=== PATIENT | male | born 1940 | race Caucasian/White ===

== ENCOUNTER 2024-11-23 14:20 | Inpatient (IN) | payer MEDICARE, OTHER, SELFPAY ==
[2024-11-22] VITALS (7 sets, daily range): BP systolic 108–162; BP diastolic 49–86; BMI 24.3
[2024-11-22 01:05] LABS: Hematocrit 41.4 % (39.0-52.0); Hemoglobin 13.8 g/dL (13.0-18.0); Mean Corp Hgb Conc. 33.3 g/dL (33.0-37.0); Mean Corpuscular Volume 84.7 fL (80.0-94.0); Nucleated Red Blood Cells % 0 % (-); Platelet Count 197 10^3/uL (130-400); Red Cell Dist. Width 14.2 % (11.5-14.5)
[2024-11-22 01:34] LABS: ALT (SGPT) 21 U/L (0-50); AST (SGOT) 27 U/L (17-59); Albumin 4.1 g/dl (3.5-5.0); Alkaline Phosphatase 74 U/L (38-126); Blood Urea Nitrogen 23 mg/dl (9-20); Calcium 9.5 mg/dl (8.4-10.2); Carbon Dioxide 23 mmol/L (22-30); Chloride 110 mmol/L (98-107); Glucose 123 mg/dl (70-99); Potassium 4.3 mmol/L (3.5-5.1); Sodium 140 mmol/L (135-145); Total Protein 6.6 g/dl (6.3-8.2); eGFR 53.84
[2024-11-22 01:45] LABS: Troponin I < 0.012 ng/ml
[2024-11-22] MEDS: DILAUDID 0.5 MG IV ×2 (04:19→07:13)
[2024-11-22] MEDS: ZOFRAN 4 MG IV (04:19)
[2024-11-22] MEDS: NSS 500 IV (04:20)
[2024-11-22 04:32] LABS: Lipase 52 U/L (23-300)
[2024-11-22] MEDS: PROTONIX IV 40 MG IV (07:13)
--- NOTE | 2024-11-22 07:14 | ED.GENMED ---
History of Present Illness
General
Chief Complaint: Abdominal Pain
Source: patient and spouse
Exam Limitations: none
Time Seen by Provider: 11/22/24 04:10
Nursing documentation reviewed up to this point in time: agreed with
History of Present Illness
History of Present Illness:
84-year-old male with history as noted presents to the ER with his for evaluation of abdominal pain. Patient reports onset of symptoms yesterday evening and they have been constant since that time. He reports an intense pain in the right
upper to mid abdomen. No clear triggering or relieving factor noted. He denies any associated nausea or vomiting. Denies any diarrhea or constipation. He has not noted any urinary symptoms. Denies any chest pain or shortness of breath. No
fever or chills. He has never had similar symptoms in the past. He denies any trauma or injury although his says he is quite active with yard work. His does note that he recently had a pinched nerve in his right leg but has otherwise
been in his normal state of health.
Past History
Past History
ED Past Medical History: Other
ED Past Surgical History: Other
Social History
Tobacco: Non-smoker
Personal:
Living: with family
Review of Systems
Review of Systems
All Other Systems: ROS reviewed and negative except as documented in HPI and ROS
Constitutional: Denies fever or chills
Respiratory: Denies trouble breathing
Cardiac: Denies chest pain
ABD/GI: Reports abdominal pain; Denies nausea, vomiting, diarrhea or constipated
: Denies dysuria, flank pain or bleeding
Musculoskeletal: Denies neck pain
Neurological: Denies headache
Phy Exam
Physical Exam
Physical Exam:
General: Awake, alert, appears uncomfortable
Head: Normocephalic, atraumatic
Eyes: Conjunctiva normal, sclera anicteric
Throat: Airway intact, handling secretions
Neck: Trachea midline, no JVD
Lungs: Clear to auscultation bilaterally, no wheezing, rales, rhonchi
Heart: Regular rate and rhythm, no murmurs, gallops, or rubs
Abd: Soft, non distended, tender to palpation right upper and mid abdomen
Back: No CVA tenderness
Neuro: No gross deficits
Skin: no rash in area of concern
Extremities: No edema in extremities, equal pulses in all extremities
Scores
Heart Failure Risk
Heart Failure Risk Score: Not Applicable
Heart Score for Chest Pain Patients
STEMI patient?: Not applicable
Withdrawal Assessment of Alcohol
Withdrawal Assessment Completed?: Not applicable
Course
Orders/Labs/Results
Orders:
Orders
11/22/24 00:37
ECG [Electrocardiogram (*1)] Urgent
Reason for Study: Chest Pain
EKG- Treatment ONCE
11/22/24 00:59
Complete Blood Count/With Diff Urgent
Comprehensive Metabolic Panel Urgent
Lipase Urgent
Comment: ADD ON
Troponin I Urgent
11/22/24 03:49
Add On- LAB Urgent
Tests Added?: lipase
11/22/24 04:16
CT Abd/pel Without Iv Or Oral Urgent
Comment:
Reason For Exam: right upper abd/flank pain
HYDROmorphone [Dilaudid] 0.5 mg IV NOW STA
Ondansetron Injectable [Zofran] 4 mg IV NOW STA
11/22/24 04:18
0.9% Sodium Chloride 500 ml [Nss] 500 ml IV BOLUS
11/22/24 06:35
Urinalysis Reflex To Culture Urgent
11/22/24 06:58
HYDROmorphone [Dilaudid] 0.5 mg IV NOW STA
11/22/24 07:02
Pantoprazole [Protonix IV] 40 mg IV NOW STA
Abnormal Lab Results
11/22/24
00:59
WBC 11.9 H 10^3/uL
(4.8-10.8)
Absolute Neuts (auto) 10.0 H 10^3/uL
(1.4-6.5)
Absolute Lymphs (auto) 1.0 L 10^3/uL
(1.2-3.4)
Absolute Monos (auto) 0.7 H 10^3/uL
(0.1-0.6)
Neutrophils % 84.0 H %
(42.2-75.2)
Lymphocytes % 8.6 L %
(20.5-51.1)
Chloride 110 H mmol/L
(98-107)
BUN 23 H mg/dl
(9-20)
Glucose 123 H mg/dl
(70-99)
11/22/24 00:59
11/22/24 00:59
Vital Signs
Initial and Last Documented VS:
Initial Vital Signs
Temp Pulse BP Pulse Ox
37.3 C 100 162/86 100
11/22/24 00:24 11/22/24 00:24 11/22/24 00:24 11/22/24 00:24
Last Documented Vital Signs
Temp Pulse Resp BP Pulse Ox
37.3 C 87 25 108/57 94
11/22/24 00:44 11/22/24 06:01 11/22/24 06:01 11/22/24 06:01 11/22/24 04:45
MDM/Problems Addressed
Differential Diagnosis Includes:
Colitis, appendicitis, nephrolithiasis, UTI/pyelonephritis, muscular strain
MDM/Problems Addressed:
84-year-old male presents for evaluation of right sided abdominal pain as described above. Vitals and exam as above. We sent labs including a CBC which showed a slight leukocytosis to 11.9. CMP shows stable creatinine of 1.3�patient is status
post left nephrectomy. He had a troponin sent in triage which was undetectable�denies chest pain at any point. His lipase is normal as are his LFTs. CT of the abdomen pelvis shows no acute pathology to account for his symptoms however he is
having continued significant pain and requiring multiple rounds of pain medication. Will plan to admit for continued symptom control and further evaluation of his symptoms, consideration of specialist consultation if symptoms persist.
Chronic conditions affecting care:
Left nephrectomy with chronic kidney disease
*Pulse Oximetry
SaO2: 94
Oxygen Mode of Delivery: Room air
Patient hypoxic: no (94%)
*EKG
Interpreted by ED Provider?: Yes
Heart Rate: 88
Rate: normal
Rhythm: sinus
[place]: normal axis
Interval: normal interval
QRS Pattern: normal QRS
Ischemia: no ischemia
*Critical Care Note
Total Time (30-74mins, 75-104mins- exclusive of procedures): Not Applicable
Data Reviewed
Source: patient, records and spouse
Patient Management
Discussion with other providers: Hospitalist (Discussed with hospitalist)
Escalation/DeEscalation of care consider admission/obs:
Admission indicated
ED Attending Note
-
Portions of this chart may have been created with voice recognition software.� Occasional wrong word or��sound alike� substitutions may have occurred due to the inherent limitations of voice recognition software.
Discharge Plan
Departure
Patient Disposition: Admit
Date of Disposition: 11/22/24
Time of Disposition: 07:02
Admit to doctor: Perez
Presentation/result/management discussed w/ accepting MD/DO: Hospitalist
Discharge Problem:
Abdominal pain
Referrals:
Quincy Wayne DO [Family Provider, Internal Medicine] - Call in 1-3 days for appt
Interventions
Interventions:
*Risk Screen - Suicide Last Done: 11/22/24 00:44
*Neglect/Abuse Screening Last Done: 11/22/24 00:44
*ED- Fall Risk Assessment Last Done: 11/22/24 00:44
UT-Uflbsp-Ktzkqekmil Assessment Last Done: 11/22/24 03:54
Discharge Date and Time
Print Language: MOLDOVAN
--- NOTE | 2024-11-22 09:03 | HPS.HSE ---
Family Physician
-
Family Physician: Quincy Wayne
Chief Complaint
-
Right flank pain
History of Present Illness
84-year-old male with a past medical history of left kidney cancer status post left nephrectomy and chronic back pain with radiculopathy presents with a 2-day history of right upper flank pain. Patient reports that there is dull pain constantly,
with sharpness that waxes and wanes. He denies nausea, vomiting. No constipation, no diarrhea. He has been taking Tylenol and Advil for his pain. His pain is unassociated with food. His reports that he has been working in his yard quite
often, using a weed My. He denies chest pain, denies shortness of breath. No fever, no dysuria, no black or bloody stools.
Medical History
Past Medical History
Past Medical History: Reports Other
Additional Past Medical History:
Kidney cancer status post left nephrectomy
Chronic back pain with radiculopathy
Past Surgical History: Reports Other
Additional Past Surgical History:
Left nephrectomy
Social History
Tobacco: Former Smoker
Alcohol: Occasional
Drug: None
Personal:
Living: With Family
Family History
Family History: Not pertinent
Allergies / Home Medications
Allergies reflects when Allergies were last updated in [facility].
Home Medications with original date entered in [facility]
Allergy/Medication List:
Allergies
Allergy/AdvReac Type Severity Reaction Status Date / Time
No Known Allergies Allergy Verified 11/22/24 00:44
Home Medications Table - record
�Medication �Instructions �Recorded �Confirmed
Unknown Bruise Cream 1 applic topical DAILYPRN PRN 11/22/24 11/22/24
apply to L arm bruise
Vitamin C 1 tab PO DAILY 11/22/24 11/22/24
acetaminophen 500 mg tablet 1,000 mg PO Q6HPRN PRN mild pain 11/22/24 11/22/24
(Tylenol Extra Strength)
ibuprofen 200 mg tablet (Advil) 400 mg PO TIDPRN PRN mild pain 11/22/24 11/22/24
Review of Systems
-
A 12 point ROS was completed and negative except as noted: Yes
Physical Exam
Vital Signs
Vital Signs
Temp Pulse Resp BP Pulse Ox
99.1 F 87 25 108/57 94
11/22/24 00:44 11/22/24 06:01 11/22/24 06:01 11/22/24 06:01 11/22/24 07:16
Physical Exam
General: No Apparent Distress
HEENT: NormoCephalic, Anicteric and Moist mucous membranes
Respiratory: Clear
Cardiac: S1/S2
GI: Soft, Non Tender, Non Distended and Normal Bowel Sounds
Musculoskeletal: No Clubbing, No Cyanosis, No Edema and Other (Right mid back and right upper flank are tender to palpation)
Neuro: Awake and Alert
Psych: Calm
Laboratory Results
-
11/22/24 00:59
11/22/24 00:59
Laboratory Results
Total Bilirubin 0.9 mg/dl (0.2-1.3) 11/22/24 00:59
AST 27 U/L (17-59) 11/22/24 00:59
ALT 21 U/L (0-50) 11/22/24 00:59
Alkaline Phosphatase 74 U/L (38-126) 11/22/24 00:59
Troponin I < 0.012 ng/ml 11/22/24 00:59
Lipase 52 U/L (23-300) 11/22/24 00:59
Impression/Plan
-
HPI: 84-year-old male with a past medical history of left kidney cancer status post left nephrectomy and chronic back pain with radiculopathy presents with a 2-day history of right upper flank pain. Patient reports that there is dull pain
constantly, with sharpness that waxes and wanes. He denies nausea, vomiting. No constipation, no diarrhea. He has been taking Tylenol and Advil for his pain. His pain is unassociated with food. His reports that he has been working in his
yard quite often, using a weed My. He denies chest pain, denies shortness of breath. No fever, no dysuria, no black or bloody stools.
#Right upper flank pain
#Right mid back pain
Suspect musculoskeletal strain with radiculopathy
Thoracic x-ray shows degenerative disc disease
CT abdomen and pelvis shows nonobstructing 3 mm stone in the inferior pole of the right kidney, bilateral hydroceles
Treat with lidocaine patches, Tylenol, flexeril, oxycodone
Consult PT
#Chronic back pain
Pain medications as above
#Cognitive impairment
reports that patient has been exhibiting cognitive impairment in the last 3-6 months
Check TSH with reflex T4, B12, consult OT for memory testing
#History of left kidney cancer status post left nephrectomy
Monitor kidney function
DVT prophylaxis�subcu Lovenox
Full code
Total time spent to see the patient on the floor, examine the patient, review data and lab results, discuss treatment plan with patient, nursing staff around 65 minutes.
[2024-11-22 09:28] LABS: Urine Character Clear (Clear)
[2024-11-22 09:38] LABS: Urine Squamous Cell 0-2 /LPF (Few); Urine White Cell 0-2 /HPF (0-5)
[2024-11-22] MEDS: TORADOL 15 MG IV (09:56)
[2024-11-22] MEDS: TYLENOL 1000 MG PO ×3 (09:57→21:49)
[2024-11-22] MEDS: NSS 1000 IV (09:58)
[2024-11-22] MEDS: FLEXERIL 5 MG PO ×3 (09:58→21:50)
[2024-11-22] MEDS: LIDOCAINE 4% PATCH 2 PATCH TOPICAL (10:07)
[2024-11-22] MEDS: LOVENOX 40 MG SC (17:12)
--- NOTE | 2024-11-22 18:00 | PTCARENOTE ---
Received patient from ED on stretcher. AAOx2 (place) [place] dto room and use of call paris. Communicated with Chapis who stated that patient has had cognitive decline over the past year, specifically with STM issues. Pt needed redirecting at
times after left for the evening. Steady gait. Checked frequently. Staff assisted in helping Pt call his . Call paris within reach.
[2024-11-22] MEDS: REMOVE LIDOCAINE PATCH 1 PATCH REMOVE (20:05)
[2024-11-22] MEDS: SENOKOT-S 2 TABLET PO (21:51)
[2024-11-22] MEDS: ROXICODONE 5 MG PO (23:24)
[2024-11-23 07:28] LABS: Hematocrit 42.3 % (39.0-52.0); Hemoglobin 13.9 g/dL (13.0-18.0); Mean Corp Hgb Conc. 32.9 g/dL (33.0-37.0); Mean Corpuscular Volume 86.2 fL (80.0-94.0); Platelet Count 232 10^3/uL (130-400); Red Cell Dist. Width 14.1 % (11.5-14.5)
[2024-11-23 07:52] LABS: Blood Urea Nitrogen 25 mg/dl (9-20); Calcium 8.9 mg/dl (8.4-10.2); Carbon Dioxide 26 mmol/L (22-30); Chloride 107 mmol/L (98-107); Estimated Creatinine Clearance 37 ml/min; Glucose 112 mg/dl (70-99); Magnesium 2.0 mg/dl (1.6-2.3); Potassium 4.6 mmol/L (3.5-5.1); Sodium 138 mmol/L (135-145); eGFR 49.25
[2024-11-23] MEDS: FLEXERIL 5 MG PO ×3 (07:55→22:37)
[2024-11-23] MEDS: LIDOCAINE 4% PATCH 2 PATCH TOPICAL (07:55)
[2024-11-23] MEDS: TYLENOL 1000 MG PO ×3 (07:56→22:37)
[2024-11-23 08:08] VITALS: BP 116/65
[2024-11-23 08:40] LABS: Vitamin B12 527 pg/ml (239-931)
[2024-11-23 10:31] VITALS: BP 127/66; PULSE 92; O2SAT 92
[2024-11-23 10:32] VITALS: BP 127/66; PULSE 93
--- NOTE | 2024-11-23 13:40 | CM ---
Addendum entered by Maranda Medrano 11/23/24 16:35:
options reviewed-prefer [facility] -notified [facility] liaison
Addendum entered by Maranda Medrano 11/23/24 16:15:
tt from [facility] - LOC change to inpatient
IMM explained & signed. In chart
Original Note:
Patient seen at bedside
OBS status - REED form explained to patient/ & placed in cart
Dx: R flank pain
PMH: left kidney cancer status post left nephrectomy and chronic back pain with radiculopathy
IA completed
CM consult completed Advanced Directives
Lives in a 2 story home with , 3 steps to enter, flight of stairs to bedroom/bathroom
Information given to patient - updated Chapis
PLOF: Independent, states no assistive device
DME: cane
Denies VN/Rehab
PT/OT to eval - Rec Home Health
will review options with
PCP: Quincy Wayne
Pharmacy: [address], [place]
PLAN: PT rec Home health, will review options with
--- NOTE | 2024-11-23 14:27 | W.PN.HOSP.TC ---
Today's Communication/Plan
-
See plan.
Patient's updated over the phone
Assessment / Plan
Assessment / Plan
Impression
HPI: 84-year-old male with a past medical history of left kidney cancer status post left nephrectomy and chronic back pain with radiculopathy presents with a 2-day history of right upper flank pain. Patient reports that there is dull pain
constantly, with sharpness that waxes and wanes. He denies nausea, vomiting. No constipation, no diarrhea. He has been taking Tylenol and Advil for his pain. His pain is unassociated with food. His reports that he has been working in his
yard quite often, using a weed My. He denies chest pain, denies shortness of breath. No fever, no dysuria, no black or bloody stools.
Right lower back/upper flank pain
Fever
Leukocytosis
Acute kidney injury
Conditions prior to admission
Solitary kidney, status post left nephrectomy.
Chronic back pain.
Dementia senile type
Plan
Poor historian, although with persistent right lower back/upper flank pain reproducible on exam.
Noted febrile within 24 hours postadmission with now rising white count.
Urinalysis negative on admission.
Imaging with 3 mm nonobstructive right-sided kidney stone.
Imaging also suggestive of a right small pleural effusion with adjacent consolidation, reasonable concern for right basilar pneumonia.
Chest x-ray 2 views
Blood cultures
Repeat UA and cultures
Empiric antibiotics/ceftriaxone
Acute kidney injury
Solitary kidney.
Avoid nephrotoxins.
IV fluids
Monitor creatinine.
Bladder scan for retention
Chronic back pain.
Continue symptomatic control including Tylenol, Flexeril, oxycodone for severe pain. Avoid NSAIDs with SHALA
Cognitive impairment
Suspect dementia senile type
TSH, B12 is in normal limits.
Monitor closely for delirium in the settings of acute illness and fever
Anticipated Discharge: > 48 hours
Subjective/Interval History
-
Date of Service: November 23, 2024
Objective Data
-
Labs:
Laboratory Results
11/23/24
06:56
WBC 14.9 H
Hgb 13.9
Hct 42.3
Plt Count 232
Sodium 138
Potassium 4.6
Chloride 107
Carbon Dioxide 26
BUN 25 H
Creatinine 1.4 H
Glucose 112 H
Calcium 8.9
Vital Signs:
Vital Signs
Temp Pulse Resp BP Pulse Ox
100.9 F H 87 16 116/65 92
11/23/24 08:08 11/23/24 08:08 11/23/24 08:08 11/23/24 08:08 11/23/24 08:08
I&O
11/22/24 11/23/24 11/24/24
06:59 06:59 06:59
Intake Total 100 / 100
Balance 100 / 100
Physical Exam
-
General: Well Developed and No Apparent Distress
HEENT: Normocephalic, Atraumatic and Moist Mucous Membranes
Respiratory: Clear to Auscultation
Cardiac: Regular Rhythm and S1/S2; Negative Murmur, Rub or Gallop
GI: Soft, Nontender, Nondistended and Normal Bowel Sounds; Negative Organomegaly
Rectal: Deferred by Provider
Musculoskeletal: No Clubbing, No Cyanosis and No Edema
Skin: Negative Rash
Neuro: Nonfocal/Grossly Intact
[2024-11-23] MEDS: NSS 1000 IV (15:00)
[2024-11-23] MEDS: STERILE WATER FOR INJECTION 10 ML IV (15:56)
[2024-11-23] MEDS: ROCEPHIN 1000 MG IV (15:56)
[2024-11-23 16:26] LABS: Urine Character Clear (Clear)
[2024-11-23 16:28] VITALS: BP 136/64
[2024-11-23 16:31] LABS: Urine Squamous Cell 0-2 /LPF (Few)
[2024-11-23] MEDS: LOVENOX 40 MG SC (18:12)
[2024-11-23] MEDS: REMOVE LIDOCAINE PATCH 2 PATCH REMOVE (20:01)
[2024-11-23] MEDS: SENOKOT-S 2 TABLET PO (22:38)
[2024-11-23 23:10] VITALS: BP 130/61
[2024-11-24] MEDS: ROXICODONE 10 MG PO (00:03)
--- NOTE | 2024-11-24 05:11 | PTCARENOTE ---
Patient now unable to be redirected, continuing to stand up and walk out of bed. Bed alarm ringing, roommate expressing frustration. YUDY Young notified. Patient sat at nurses station in recliner, no order for osito-chair necessary, YUDY Gipson
Hannah notified, order cancelled. Patient remaining at nurses station. Will continue to monitor.
[2024-11-24] MEDS: NSS 1000 IV ×2 (05:41→17:40)
[2024-11-24 06:50] LABS: Hematocrit 39.1 % (39.0-52.0); Hemoglobin 12.8 g/dL (13.0-18.0); Mean Corp Hgb Conc. 32.7 g/dL (33.0-37.0); Mean Corpuscular Volume 85.6 fL (80.0-94.0); Nucleated Red Blood Cells % 0 % (-); Platelet Count 203 10^3/uL (130-400); Red Cell Dist. Width 14.1 % (11.5-14.5)
[2024-11-24 07:05] VITALS: BP 143/72
[2024-11-24 07:17] LABS: Blood Urea Nitrogen 22 mg/dl (9-20); Calcium 8.5 mg/dl (8.4-10.2); Carbon Dioxide 23 mmol/L (22-30); Chloride 106 mmol/L (98-107); Estimated Creatinine Clearance 37 ml/min; Glucose 97 mg/dl (70-99); Potassium 4.5 mmol/L (3.5-5.1); Sodium 137 mmol/L (135-145); eGFR 49.25
[2024-11-24] MEDS: LIDOCAINE 4% PATCH 2 PATCH TOPICAL (08:39)
[2024-11-24] MEDS: FLEXERIL 5 MG PO ×3 (08:40→21:29)
[2024-11-24] MEDS: TYLENOL 1000 MG PO ×3 (08:40→21:26)
--- NOTE | 2024-11-24 11:01 | VNURNOTE ---
Home Health Liaison spoke w/patient's spouse Chapis to discuss [facility] nurse/therapy, visits, schedule and homebound status. She is agreeable and understands that visits at home will be 2-3 x per week to assess and teach medical management. Spouse
aware that [facility] will contact them for start of care in 1-2 days after discharge from .
[facility] referral accepted in [facility].
--- NOTE | 2024-11-24 12:16 | W.PN.HOSP.TC ---
Today's Communication/Plan
-
Speech and swallow evaluation
Right chest ultrasound to assess pleural effusion
Continue antibiotics ceftriaxone with addition of doxycycline
IV fluids
Monitor oral intake
Bladder scan for retention
Follow creatinine
Assessment / Plan
Assessment / Plan
Impression
HPI: 84-year-old male with a past medical history of left kidney cancer status post left nephrectomy and chronic back pain with radiculopathy presents with a 2-day history of right upper flank pain. Patient reports that there is dull pain
constantly, with sharpness that waxes and wanes. He denies nausea, vomiting. No constipation, no diarrhea. He has been taking Tylenol and Advil for his pain. His pain is unassociated with food. His reports that he has been working in his
yard quite often, using a weed My. He denies chest pain, denies shortness of breath. No fever, no dysuria, no black or bloody stools.
Right lower back/upper flank pain
Pneumonia, right lower lobe infiltrate with possible parapneumonic pleural effusion
Acute kidney injury
Conditions prior to admission
Solitary kidney, status post left nephrectomy.
Chronic back pain.
Dementia senile type
Plan
Pneumonia, right lower lobe infiltrate suspect community-acquired, although reasonable risk for aspiration given age and cognitive impairment
Noted febrile within 24 hours postadmission with now rising white count.
Urinalysis negative on admission.
Imaging with 3 mm nonobstructive right-sided kidney stone.
Imaging also suggestive of a right small pleural effusion with adjacent consolidation, reasonable concern for right basilar pneumonia.
Chest x-ray 2 views with right lower lobe consolidation and effusion
Blood cultures pending
Repeat urine cultures pending
Initiated antibiotics ceftriaxone 11/23 with addition of doxycycline 11/24
Right chest ultrasound to assess pleural effusion
Follow WBC
Speech and swallowing
Acute kidney injury
Solitary kidney.
Avoid nephrotoxins.
IV fluids
Creatinine plateaued at 1.4
Bladder scan for retention
Chronic back pain.
Continue symptomatic control including Tylenol, Flexeril, oxycodone for severe pain. Avoid NSAIDs with SHALA
Cognitive impairment
Suspect dementia senile type
TSH, B12 is in normal limits.
Monitor closely for delirium in the settings of acute illness and fever
Anticipated Discharge: > 48 hours
Subjective/Interval History
-
Date of Service: November 24, 2024
Objective Data
-
Labs:
Laboratory Results
11/24/24
06:34
WBC 13.6 H
Hgb 12.8 L
Hct 39.1
Plt Count 203
Sodium 137
Potassium 4.5
Chloride 106
Carbon Dioxide 23
BUN 22 H
Creatinine 1.4 H
Glucose 97
Calcium 8.5
Vital Signs:
Vital Signs
Temp Pulse Resp BP Pulse Ox
99.8 F 95 16 143/72 93
11/24/24 07:05 11/24/24 07:05 11/24/24 07:05 11/24/24 07:05 11/24/24 07:05
I&O
11/23/24 11/24/24 11/25/24
06:59 06:59 06:59
Intake Total 100 / 100 1560 / 1560
Output Total 300 / 300
Balance 100 / 100 1260 / 1260
Physical Exam
-
General: Well Developed and No Apparent Distress
HEENT: Normocephalic, Atraumatic and Moist Mucous Membranes
Respiratory: Clear to Auscultation
Cardiac: Regular Rhythm and S1/S2; Negative Murmur, Rub or Gallop
GI: Soft, Nontender, Nondistended and Normal Bowel Sounds; Negative Organomegaly
Rectal: Deferred by Provider
Musculoskeletal: No Clubbing, No Cyanosis and No Edema
Skin: Negative Rash
Neuro: Awake, Alert, Oriented and Nonfocal/Grossly Intact
[2024-11-24 15:32] VITALS: BP 148/64
[2024-11-24] MEDS: STERILE WATER FOR INJECTION 10 ML IV (15:48)
[2024-11-24] MEDS: ROCEPHIN 1000 MG IV (15:48)
[2024-11-24] MEDS: LOVENOX 40 MG SC (17:39)
--- NOTE | 2024-11-24 20:30 | PTCARENOTE ---
Patient continually setting off bed alarm r/t trying to get OOB. Patient stood with this RN's assistance and he is profoundly weak and unable to stand for more then a few seconds, unable to walk. Patient brought out to nurses station in recliner
chair, did not want to be at station and kept trying to get out chair. Patient brought back to room, spoke with which calmed him down for a short period but then patient became agitated and did not want to stay in bed. Nursing supervisor bit and shank department made
aware. 1:1 initiated, PCT at bedside. Will continue to monitor.
[2024-11-24] MEDS: VIBRAMYCIN 100 MG PO (21:26)
[2024-11-24] MEDS: SENOKOT-S 2 TABLET PO (21:26)
[2024-11-24] MEDS: REMOVE LIDOCAINE PATCH 1 PATCH REMOVE (21:27)
[2024-11-24 23:25] VITALS: BP 146/75
[2024-11-25 05:43] LABS: Hematocrit 39.0 % (39.0-52.0); Hemoglobin 12.8 g/dL (13.0-18.0); Mean Corp Hgb Conc. 32.8 g/dL (33.0-37.0); Mean Corpuscular Volume 83.3 fL (80.0-94.0); Nucleated Red Blood Cells % 0 % (-); Platelet Count 239 10^3/uL (130-400); Red Cell Dist. Width 13.9 % (11.5-14.5)
[2024-11-25 07:07] LABS: Blood Urea Nitrogen 23 mg/dl (9-20); Calcium 8.8 mg/dl (8.4-10.2); Carbon Dioxide 26 mmol/L (22-30); Chloride 107 mmol/L (98-107); Estimated Creatinine Clearance 40 ml/min; Glucose 90 mg/dl (70-99); Potassium 4.0 mmol/L (3.5-5.1); Sodium 138 mmol/L (135-145); eGFR 53.84
[2024-11-25 07:27] VITALS: BP 166/79
[2024-11-25] MEDS: FLEXERIL 5 MG PO ×3 (08:36→21:28)
[2024-11-25] MEDS: VIBRAMYCIN 100 MG PO ×2 (08:39→21:28)
[2024-11-25] MEDS: TYLENOL 1000 MG PO ×3 (08:40→21:30)
[2024-11-25] MEDS: LIDOCAINE 4% PATCH 2 PATCH TOPICAL (08:49)
[2024-11-25] MEDS: SEROQUEL 25 MG PO ×2 (12:55→21:30)
--- NOTE | 2024-11-25 14:41 | W.PN.HOSP.TC ---
Today's Communication/Plan
-
Interventional radiology to evaluate right pleural effusion with consideration of thoracentesis
IV antibiotics
Follow WBC
Gentle hydration
Start Seroquel for delirium
Assessment / Plan
Assessment / Plan
Impression
HPI: 84-year-old male with a past medical history of left kidney cancer status post left nephrectomy and chronic back pain with radiculopathy presents with a 2-day history of right upper flank pain. Patient reports that there is dull pain
constantly, with sharpness that waxes and wanes. He denies nausea, vomiting. No constipation, no diarrhea. He has been taking Tylenol and Advil for his pain. His pain is unassociated with food. His reports that he has been working in his
yard quite often, using a weed My. He denies chest pain, denies shortness of breath. No fever, no dysuria, no black or bloody stools.
Right lower back/upper flank pain
Pneumonia, right lower lobe infiltrate with possible parapneumonic pleural effusion
Acute kidney injury
TME, hyperactive daily
Conditions prior to admission
Solitary kidney, status post left nephrectomy.
Chronic back pain.
Dementia senile type
Plan
Pneumonia, right lower lobe infiltrate suspect community-acquired, although reasonable risk for aspiration given age and cognitive impairment
Noted febrile within 24 hours postadmission with now rising white count.
Urinalysis negative on admission.
Imaging with 3 mm nonobstructive right-sided kidney stone.
Imaging also suggestive of a right small pleural effusion with adjacent consolidation, reasonable concern for right basilar pneumonia.
Chest x-ray 2 views with right lower lobe consolidation and effusion
Blood cultures negative to date
Repeat urine cultures negative
Initiated antibiotics ceftriaxone 11/23 with addition of doxycycline 11/24
Chest ultrasound with possibly small, although loculated pleural effusion
WBC lingering at 13.9
Will ask interventional radiology to evaluate and consider right thoracentesis
Acute kidney injury
Solitary kidney.
Avoid nephrotoxins.
IV fluids
Creatinine improving at 1.3
Bladder scan for retention
Chronic back pain.
Continue symptomatic control including Tylenol, Flexeril, oxycodone for severe pain. Avoid NSAIDs with SHALA
Hyperactive delirium
Underlying cognitive impairment
Suspect dementia senile type
TSH, B12 is in normal limits.
Protective intervention
Start Seroquel 25 mg first dose given on 11/25 with 25 mg at bedtime. Monitor for oversedation.
Anticipated Discharge: > 48 hours
Subjective/Interval History
-
Date of Service: November 25, 2024
Objective Data
-
Labs:
Laboratory Results
11/25/24
05:28
WBC 13.9 H
Hgb 12.8 L
Hct 39.0
Plt Count 239
Sodium 138
Potassium 4.0
Chloride 107
Carbon Dioxide 26
BUN 23 H
Creatinine 1.3
Glucose 90
Calcium 8.8
Vital Signs:
Vital Signs
Temp Pulse Resp BP Pulse Ox
98.4 F 96 17 166/79 94
11/25/24 07:27 11/25/24 07:27 11/25/24 07:27 11/25/24 07:27 11/25/24 07:27
I&O
11/24/24 11/25/24 11/26/24
06:59 06:59 06:59
Intake Total 1560 / 1560 50 / 50
Output Total 300 / 300 375 / 375
Balance 1260 / 1260 -325 / -325
Physical Exam
-
General: Well Developed and No Apparent Distress
HEENT: Normocephalic, Atraumatic and Moist Mucous Membranes
Respiratory: Clear to Auscultation
Cardiac: Regular Rhythm and S1/S2; Negative Murmur, Rub or Gallop
GI: Soft, Nontender, Nondistended and Normal Bowel Sounds; Negative Organomegaly
Rectal: Deferred by Provider
Musculoskeletal: No Clubbing, No Cyanosis and No Edema
Skin: Negative Rash
Neuro: Awake, Alert, Oriented and Nonfocal/Grossly Intact
[2024-11-25 15:18] VITALS: BP 147/71
[2024-11-25] MEDS: ROCEPHIN 1000 MG IV (15:42)
[2024-11-25] MEDS: NSS 1000 IV (15:43)
[2024-11-25] MEDS: HALDOL 1 MG IV (16:08)
[2024-11-25] MEDS: STERILE WATER FOR INJECTION 10 ML IV (16:16)
--- NOTE | 2024-11-25 16:26 | PTCARENOTE ---
Patient hallucinations and agitation increasing MD made aware. Order received for 1mg IV Haldol. Medication administered via left distal forearm.
--- NOTE | 2024-11-25 16:39 | CM ---
Addendum entered by Maru Pinedo 11/26/24 17:01:
Therapy notes reviewed. Pt is Max A for toileting, max assist with RW, transfers with mod assist of 2. Watch for SNF needs;.
Original Note:
CM following for discharge planning. Pt will return home with [facility] when medically cleared.
[2024-11-25] MEDS: LOVENOX 40 MG SC (17:46)
[2024-11-25] MEDS: SENOKOT-S 2 TABLET PO (21:30)
[2024-11-25] MEDS: REMOVE LIDOCAINE PATCH 1 PATCH REMOVE (21:30)
[2024-11-25 23:40] VITALS: BP 168/85
[2024-11-26 06:00] VITALS: BMI 24.6
[2024-11-26 07:28] LABS: Hematocrit 36.8 % (39.0-52.0); Hemoglobin 12.3 g/dL (13.0-18.0); Mean Corp Hgb Conc. 33.4 g/dL (33.0-37.0); Mean Corpuscular Volume 83.6 fL (80.0-94.0); Nucleated Red Blood Cells % 0 % (-); Platelet Count 254 10^3/uL (130-400); Red Cell Dist. Width 13.9 % (11.5-14.5)
[2024-11-26 07:33] LABS: Blood Urea Nitrogen 24 mg/dl (9-20); Calcium 8.7 mg/dl (8.4-10.2); Carbon Dioxide 23 mmol/L (22-30); Chloride 110 mmol/L (98-107); Estimated Creatinine Clearance 40 ml/min; Glucose 98 mg/dl (70-99); Potassium 4.5 mmol/L (3.5-5.1); Sodium 141 mmol/L (135-145); eGFR 53.84
[2024-11-26 07:55] VITALS: BP 183/84
[2024-11-26] MEDS: FLEXERIL 5 MG PO ×2 (08:16→15:37)
[2024-11-26] MEDS: VIBRAMYCIN 100 MG PO ×2 (08:16→22:09)
[2024-11-26] MEDS: TYLENOL 1000 MG PO ×3 (08:16→22:11)
[2024-11-26] MEDS: LIDOCAINE 4% PATCH 2 PATCH TOPICAL (08:17)
[2024-11-26] MEDS: NSS 1000 IV (08:29)
--- NOTE | 2024-11-26 10:59 | W.PN.HOSP.TC ---
Today's Communication/Plan
-
Thoracentesis in the next 24 hours
Monitor mentation
Monitor blood pressure
Continue with antibiotic
Trend WBC
Wean off restraints and one-to-one as tolerated possible
Assessment / Plan
Assessment / Plan
Impression
HPI: 84-year-old male with a past medical history of left kidney cancer status post left nephrectomy and chronic back pain with radiculopathy presents with a 2-day history of right upper flank pain. Patient reports that there is dull pain
constantly, with sharpness that waxes and wanes. He denies nausea, vomiting. No constipation, no diarrhea. He has been taking Tylenol and Advil for his pain. His pain is unassociated with food. His reports that he has been working in his
yard quite often, using a weed My. He denies chest pain, denies shortness of breath. No fever, no dysuria, no black or bloody stools.
Right lower back/upper flank pain
Pneumonia, right lower lobe infiltrate with possible parapneumonic pleural effusion
Acute kidney injury
TME, hyperactive daily
Labile hypertension
Conditions prior to admission
Solitary kidney, status post left nephrectomy.
Chronic back pain.
Dementia senile type
Plan
Pneumonia, right lower lobe infiltrate suspect community-acquired, although reasonable risk for aspiration given age and cognitive impairment
Noted febrile within 24 hours postadmission with now rising white count.
Urinalysis negative on admission.
Imaging with 3 mm nonobstructive right-sided kidney stone.
Imaging also suggestive of a right small pleural effusion with adjacent consolidation, reasonable concern for right basilar pneumonia.
Chest x-ray 2 views with right lower lobe consolidation and effusion
Blood cultures negative to date
Repeat urine cultures negative
Initiated antibiotics ceftriaxone 11/23 with addition of doxycycline 11/24
Chest ultrasound with possibly small, although loculated pleural effusion
WBC mild improvement. Not tachypneic. On room air comfortable.
Will ask interventional radiology to evaluate and consider right thoracentesis once patient more awake.
Acute kidney injury
Solitary kidney.
Avoid nephrotoxins.
IV fluids
Creatinine improving at 1.3
Bladder scan for retention
Chronic back pain.
Continue symptomatic control including Tylenol, Flexeril, oxycodone for severe pain. Avoid NSAIDs with SHALA
Hyperactive delirium
Underlying cognitive impairment
Suspect dementia senile type
TSH, B12 is in normal limits.
Protective intervention
Start Seroquel 25 mg first dose given on 11/25 with 25 mg at bedtime. Monitor for oversedation.
Mentation seems to be improving
Labile hypertension
Monitor blood pressure closely. If persistently elevated will need to be started on medication.
DVT prophylaxis with Lovenox
Full code
Anticipated Discharge: > 48 hours
Subjective/Interval History
-
Date of Service: November 26, 2024
Patient resting in bed comfortably
Calm this morning
Off restraints
On room air. Not tachypneic. One-to-one at bedside noted
Objective Data
-
Labs:
Laboratory Results
11/26/24
06:26
WBC 13.0 H
Hgb 12.3 L
Hct 36.8 L
Plt Count 254
Sodium 141
Potassium 4.5
Chloride 110 H
Carbon Dioxide 23
BUN 24 H
Creatinine 1.3
Glucose 98
Calcium 8.7
Vital Signs:
Vital Signs
Temp Pulse Resp BP Pulse Ox
99.9 F 89 18 183/84 96
11/26/24 07:55 11/26/24 07:55 11/26/24 07:55 11/26/24 07:55 11/26/24 07:55
I&O
11/25/24 11/26/24 11/27/24
06:59 06:59 06:59
Intake Total 50 / 50 90 / 90
Output Total 375 / 375 625 / 625
Balance -325 / -325 -535 / -535
Physical Exam
-
General: Well Developed and No Apparent Distress
HEENT: Normocephalic, Atraumatic and Moist Mucous Membranes
Respiratory: Clear to Auscultation (Anterior) and Non Labored Respirations; Negative Accessory Resp Muscle Use
Cardiac: Regular Rhythm and S1/S2; Negative Murmur, Rub or Gallop
GI: Soft, Nontender, Nondistended and Normal Bowel Sounds; Negative Organomegaly
Rectal: Deferred by Provider
Musculoskeletal: No Clubbing, No Cyanosis and No Edema
Skin: Negative Rash
Neuro: Nonfocal/Grossly Intact
Psych: Calm
Data Reviewed
-
Total Time Spent with Patient (in minutes): 55
[2024-11-26 14:59] VITALS: BP 145/75
[2024-11-26] MEDS: ROCEPHIN 1000 MG IV (15:38)
[2024-11-26] MEDS: STERILE WATER FOR INJECTION 10 ML IV (15:39)
--- NOTE | 2024-11-26 15:47 | PTOTSP ---
Dysphagia Evaluation
Patient presents with signs concerning for at least mild dysphagia suspected to be exacerbated by AMS with baseline cognitive impairment. Signs concerning for possible aspiration noted with solids. CXR 11/23/2024 with right sided pneumonia.
Recommend:
1. IDDSI Level 6 Soft/Bite Sized, Thin Liquids
2. Medications as best tolerated
3. Supervision with all PO/meds, assist as needed
4. Strategies: upright to 90 degrees, SMALL SINGLE SIPS/BITES, slow rate
5. Consider instrumental swallowing assessment if s/s of aspiration persist despite strategies above
[2024-11-26] MEDS: LOVENOX 40 MG SC (17:16)
[2024-11-26] MEDS: SENOKOT-S 2 TABLET PO (22:11)
[2024-11-26] MEDS: SEROQUEL 25 MG PO (22:11)
[2024-11-26] MEDS: REMOVE LIDOCAINE PATCH 1 PATCH REMOVE (22:34)
[2024-11-26 23:32] VITALS: BP 139/78
[2024-11-27] MEDS: NSS 1000 IV (00:46)
[2024-11-27] MEDS: FLEXERIL PO (00:49)
[2024-11-27] MEDS: ROXICODONE 5 MG PO (03:28)
[2024-11-27 07:48] VITALS: BP 129/80
[2024-11-27 07:50] VITALS: BP 129/80; BP_SYST 93
--- NOTE | 2024-11-27 08:25 | PTOTSP ---
Speech Language Pathology
VIDEOFLUOROSCOPIC SWALLOWING EXAMINATION (VSE) completed. Pt with mild pharyngeal dysphagia. Pharyngeal residue noted with supraglottic penetration with consecutive straw sips of thin liquids only. No aspiration.
Recommend:
(1) IDDSI Level 6 solids (soft/bite-sized) and thin liquids
(2) Aspiration precautions: sit upright, slow rate, partial supervision, occasional cough/reswallow (please remind pt)
(3) Meds as tolerated
(4) VESSEL MANAGER to continue to follow
[2024-11-27] MEDS: LIDOCAINE 4% PATCH 2 PATCH TOPICAL (08:52)
[2024-11-27] MEDS: FLEXERIL 5 MG PO ×3 (08:53→21:04)
[2024-11-27] MEDS: TYLENOL 1000 MG PO ×3 (08:53→21:04)
[2024-11-27] MEDS: VIBRAMYCIN 100 MG PO ×2 (08:53→21:09)
[2024-11-27 09:51] LABS: Hematocrit 37.2 % (39.0-52.0); Hemoglobin 12.4 g/dL (13.0-18.0); Mean Corp Hgb Conc. 33.3 g/dL (33.0-37.0); Mean Corpuscular Volume 83.2 fL (80.0-94.0); Nucleated Red Blood Cells % 0 % (-); Platelet Count 280 10^3/uL (130-400); Red Cell Dist. Width 14.0 % (11.5-14.5)
[2024-11-27 10:32] LABS: ALT (SGPT) 40 U/L (0-50); AST (SGOT) 32 U/L (17-59); Albumin 3.0 g/dl (3.5-5.0); Alkaline Phosphatase 207 U/L (38-126); Blood Urea Nitrogen 22 mg/dl (9-20); Calcium 8.4 mg/dl (8.4-10.2); Carbon Dioxide 23 mmol/L (22-30); Chloride 107 mmol/L (98-107); Estimated Creatinine Clearance 44 ml/min; Glucose 140 mg/dl (70-99); Potassium 4.0 mmol/L (3.5-5.1); Sodium 136 mmol/L (135-145); Total Protein 5.3 g/dl (6.3-8.2); eGFR 59.26
--- NOTE | 2024-11-27 10:52 | W.PN.HOSP.TC ---
Addendum entered and electronically signed by Jg Cloud MD 11/27/24 16:05:
Updated spouse over the phone in details. Spouse is interesting in patient going to rehab for short period of time.
Addendum entered and electronically signed by Jg Cloud MD 11/27/24 13:09:
Elevated creatinine
Original Note:
Today's Communication/Plan
-
Monitor p.o. intake
DC IV fluids and observe
Observe off restraints and one-to-one
Continue antibiotics
Assessment / Plan
Assessment / Plan
Impression
HPI: 84-year-old male with a past medical history of left kidney cancer status post left nephrectomy and chronic back pain with radiculopathy presents with a 2-day history of right upper flank pain. Patient reports that there is dull pain
constantly, with sharpness that waxes and wanes. He denies nausea, vomiting. No constipation, no diarrhea. He has been taking Tylenol and Advil for his pain. His pain is unassociated with food. His reports that he has been working in his
yard quite often, using a weed My. He denies chest pain, denies shortness of breath. No fever, no dysuria, no black or bloody stools.
Right lower back/upper flank pain
Pneumonia, right lower lobe infiltrate with possible parapneumonic pleural effusion
Acute kidney injury
TME, hyperactive daily
Labile hypertension
Mild dysphagia
Conditions prior to admission
Solitary kidney, status post left nephrectomy.
Chronic back pain.
Dementia senile type
Plan
Pneumonia, right lower lobe infiltrate suspect community-acquired, although reasonable risk for aspiration given age and cognitive impairment
Noted febrile within 24 hours postadmission with now rising white count.
Urinalysis negative on admission.
Imaging with 3 mm nonobstructive right-sided kidney stone.
Imaging also suggestive of a right small pleural effusion with adjacent consolidation, reasonable concern for right basilar pneumonia.
Chest x-ray 2 views with right lower lobe consolidation and effusion
Blood cultures negative to date
Repeat urine cultures negative
Initiated antibiotics ceftriaxone 11/23 with addition of doxycycline 11/24
Chest ultrasound with possibly small, although loculated pleural effusion
WBC mild improvement. Not tachypneic. On room air comfortable.
Not much fluid for thoracentesis.
Acute kidney injury
Solitary kidney.
Avoid nephrotoxins.
Creatinine improving at 1.2
Observe off IV fluids.
Bladder scan for retention
Chronic back pain.
Continue symptomatic control including Tylenol, Flexeril, oxycodone for severe pain. Avoid NSAIDs with SHALA
Hyperactive delirium
Underlying cognitive impairment
Suspect dementia senile type
TSH, B12 is in normal limits.
Protective intervention
Start Seroquel 25 mg first dose given on 11/25 with 25 mg at bedtime. Monitor for oversedation.
Mentation seems to be improving. Off restraints. Off one-to-one.
Labile hypertension
Monitor blood pressure closely. If persistently elevated will need to be started on medication.
Blood pressure AM 129/80
Mild dysphagia
Status post video swallow evaluation
Per speech continue with IDDS6 with mildly thick liquids
DVT prophylaxis with Lovenox
Full code
PT/OT-SNF.
Anticipated Discharge: 24 - 48 hours
Subjective/Interval History
-
Date of Service: November 27, 2024
Patient more awake and alert
Not agitated
Did not sleep much overnight
Off restraints
Objective Data
-
Labs:
Laboratory Results
11/27/24
09:36
WBC 13.0 H
Hgb 12.4 L
Hct 37.2 L
Plt Count 280
Sodium 136
Potassium 4.0
Chloride 107
Carbon Dioxide 23
BUN 22 H
Creatinine 1.2
Glucose 140 H
Calcium 8.4
Total Bilirubin 1.0
AST 32
ALT 40
Alkaline Phosphatase 207 H
Vital Signs:
Vital Signs
Temp Pulse Resp BP Pulse Ox
99.4 F 93 16 129/80 93
11/27/24 07:50 11/27/24 07:50 11/27/24 07:50 11/27/24 07:50 11/27/24 07:50
I&O
11/26/24 11/27/24 11/28/24
06:59 06:59 06:59
Intake Total 90 / 90 360 / 360
Output Total 625 / 625 775 / 775
Balance -535 / -535 -415 / -415
Physical Exam
-
General: Well Developed and No Apparent Distress
HEENT: Normocephalic, Atraumatic and Moist Mucous Membranes
Respiratory: Clear to Auscultation (Anterior) and Non Labored Respirations; Negative Accessory Resp Muscle Use
Cardiac: Regular Rhythm and S1/S2; Negative Murmur, Rub or Gallop
GI: Soft, Nontender, Nondistended and Normal Bowel Sounds; Negative Organomegaly
Rectal: Deferred by Provider
Musculoskeletal: No Clubbing, No Cyanosis and No Edema
Skin: Negative Rash
Neuro: Awake
Psych: Calm
--- NOTE | 2024-11-27 11:20 | PN.CDI ---
CDI
- -
CDI:
Physician Documentation Request
Admit Date: 11/23/24 14:20
Dear Doctor Ai,
Progress notes include a diagnosis if SHALA.
Creatinine results:
Laboratory Tests
11/22/24 11/23/24 11/24/24
00:59 06:56 06:34
Creatinine 1.3 1.4 H 1.4 H
11/25/24 11/26/24 11/27/24
05:28 06:26 09:36
Creatinine 1.3 1.3 1.2
Criteria for SHALA*
1 Increase in serum creatinine by > or = to 0.3 mg/dL (> or = to 26.5 micromol/L) within 48 hours, OR
2 Increase in serum creatinine to > or = to 1.5 times baseline, which is known or presumed to have occurred within 7 days, OR
3 Urine volume < 0.5 nL/kg/hour for six hours
Based on the above information and the recognized standard for SHALA could you please verify this diagnoses is still accurate and reflective of the patient�s condition to ensure quality of the medical record.
Please clarify in the Progress Notes:
�SHALA is/was present and is a clinical diagnosis based on (please include this additional support in the medical record)
�After study SHALA has been ruled out
�Other
Use of terms such as suspected, likely, concern for, or probable (associated with a specific diagnosis that is being evaluated, monitored, or treated as if it exists) are acceptable and can be coded in the inpatient setting, when documented at the
time of discharge.
Thank you,
Naye Pfeiffer RN, BSN
CDI Specialist
tiger text
Please use your independent medical judgment in providing your response.
[2024-11-27 15:42] VITALS: BP 129/80
[2024-11-27] MEDS: ROCEPHIN 1000 MG IV (16:14)
[2024-11-27] MEDS: STERILE WATER FOR INJECTION 10 ML IV (16:14)
[2024-11-27] MEDS: LOVENOX 40 MG SC (17:07)
--- NOTE | 2024-11-27 18:26 | FALL ---
pt bed bed/chair alarm going off. RN Tess Brady entered room and found back laying on ground, on his back (feet towards the center of the bed and head of pt towards the doorframe/wall), head off the ground, naked, L bedside rail down, food tray in
front on the patient (between pt and door way). x2 assist to stand pt and place pt back in bed. pt confused at baseline, unable to answer questions regarding how he fell, why he fell, or if he hit his head. pt found with 2 bleeding skin tears. one
skin tear on L medial elbow and the other on the proximal gluteal cleft. both cleansed with saline and silicone boarder foams placed. Dr. vera notified via tt, head CT and L elbow XR ordered.
when this nurse left pt after administering Lovenox shot pt was seated up right in bed, side rails up, x2 visitors at the bedside, call paris on food tray, bed and chair alarm plugged in.
[2024-11-27] MEDS: HALDOL 1 MG IV (20:29)
--- NOTE | 2024-11-27 20:51 | PTCARENOTE ---
Pt continually getting OOB and trying to walk in room, unsteady on feet, nearly falling. 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 Agitation further increasing with redirection, beginning to
curse, threaten and swing at staff. TT to UNIX MANAGER, received order for b/l soft wrist restraints and IV haldol x 1. Restraints applied and haldol administered. Will check EKG in AM.
[2024-11-27] MEDS: SEROQUEL 25 MG PO (21:05)
[2024-11-27] MEDS: SENOKOT-S 2 TABLET PO (21:05)
[2024-11-27] MEDS: REMOVE LIDOCAINE PATCH 2 PATCH REMOVE (21:05)
[2024-11-27 23:00] VITALS: BP 172/77
[2024-11-28 06:43] LABS: Hematocrit 37.1 % (39.0-52.0); Hemoglobin 12.3 g/dL (13.0-18.0); Mean Corp Hgb Conc. 33.2 g/dL (33.0-37.0); Mean Corpuscular Volume 83.2 fL (80.0-94.0); Nucleated Red Blood Cells % 0 % (-); Platelet Count 322 10^3/uL (130-400); Red Cell Dist. Width 13.4 % (11.5-14.5)
--- NOTE | 2024-11-28 06:45 | PTCARENOTE ---
Pt awake most of the night, fighting the restraints and fidgeting with blankets, throwing legs over side of bed. Eventually did calm down, at present pt is calm and cooperative. Restraints removed and pt planning breakfast.
[2024-11-28 07:03] LABS: ALT (SGPT) 39 U/L (0-50); AST (SGOT) 30 U/L (17-59); Albumin 3.0 g/dl (3.5-5.0); Alkaline Phosphatase 248 U/L (38-126); Blood Urea Nitrogen 21 mg/dl (9-20); Calcium 8.6 mg/dl (8.4-10.2); Carbon Dioxide 22 mmol/L (22-30); Chloride 106 mmol/L (98-107); Estimated Creatinine Clearance 44 ml/min; Glucose 94 mg/dl (70-99); Potassium 3.8 mmol/L (3.5-5.1); Sodium 139 mmol/L (135-145); Total Protein 5.3 g/dl (6.3-8.2); eGFR 59.26
[2024-11-28 07:31] VITALS: BP 148/71
--- NOTE | 2024-11-28 08:12 | W.PN.HOSP.TC ---
Addendum entered and electronically signed by Mikala Jain MD 11/28/24 15:43:
Addendum
I reviewed chart and met with in the room.
Possible medication induced encephalopathy/toxic encephalopathy. Stop Flexeril. Avoid narcotic. Continue with Tylenol only
Repeat chest x-ray in the a.m. as reporting more coughing?. Sputum culture possible. Sent for Legionella & strep cryptococcal test. Sputum culture.
I also update the daughter.
End
Original Note:
Today's Communication/Plan
-
Low dose Risperdal
try to take off restraints so we can ambulate/ do PT and send to SNF
Assessment / Plan
Assessment / Plan
PE:
General: chronically ill looking, No Apparent Distress
HEENT: Normocephalic, Atraumatic and Moist Mucous Membranes
Respiratory: Clear
Cardiac: S1 S2
GI: Soft, Nontender, Nondistended and Normal Bowel Sounds;
Rectal: Deferred by Provider
Musculoskeletal: No Clubbing, No Cyanosis and No Edema
Skin: Negative Rash
Neuro: Awake, disoriented X3
Psych: on restraints
Impression
HPI: 84-year-old male with a past medical history of left kidney cancer status post left nephrectomy and chronic back pain with radiculopathy presents with a 2-day history of right upper flank pain. Patient reports that there is dull pain
constantly, with sharpness that waxes and wanes. He denies nausea, vomiting. No constipation, no diarrhea. He has been taking Tylenol and Advil for his pain. His pain is unassociated with food. His reports that he has been working in his
yard quite often, using a weed My. He denies chest pain, denies shortness of breath. No fever, no dysuria, no black or bloody stools.
Right lower back/upper flank pain
Pneumonia, right lower lobe infiltrate with possible parapneumonic pleural effusion
Acute kidney injury
TME, hyperactive daily
Labile hypertension
Mild dysphagia
Conditions prior to admission
Solitary kidney, status post left nephrectomy.
Chronic back pain.
Dementia senile type
Plan
Pneumonia, right lower lobe infiltrate suspect community-acquired, although reasonable risk for aspiration given age and cognitive impairment
Noted febrile within 24 hours postadmission with now rising white count.
Urinalysis negative on admission.
Imaging with 3 mm nonobstructive right-sided kidney stone.
Imaging also suggestive of a right small pleural effusion with adjacent consolidation, reasonable concern for right basilar pneumonia.
Chest x-ray 2 views with right lower lobe consolidation and effusion
Blood cultures negative to date
Repeat urine cultures negative
Initiated antibiotics ceftriaxone 11/23 with addition of doxycycline 11/24
Chest ultrasound with possibly small, although loculated pleural effusion
WBC mild improvement. Not tachypneic. On room air comfortable.
Not much fluid for thoracentesis.
Acute kidney injury
Solitary kidney.
Avoid nephrotoxins.
Creatinine improving at 1.2
Observe off IV fluids.
Bladder scan for retention
Chronic back pain.
Continue symptomatic control including Tylenol, Flexeril, oxycodone for severe pain. Avoid NSAIDs with SHALA
Hyperactive delirium
Underlying cognitive impairment
Suspect dementia senile type
TSH, B12 is in normal limits.
Protective intervention
Stop Seroquel , try low dose Risperdal. Monitor for oversedation.
On restraints. Off one-to-one.
Labile hypertension
Monitor blood pressure closely. If persistently elevated will need to be started on medication.
No headache
Mild dysphagia
Status post video swallow evaluation
Per speech continue with IDDS6 with mildly thick liquids
DVT prophylaxis with Lovenox
Full code
PT/OT-SNF.
Total time spent to see the patient, examine the patient, review data and lab result, discuss treatment plan with patient, nursing staff around 55 minutes
Anticipated Discharge: > 48 hours
Subjective/Interval History
-
Date of Service: November 28, 2024
Confused , on restraints
Objective Data
-
Labs:
Laboratory Results
11/28/24
06:14
WBC 14.4 H
Hgb 12.3 L
Hct 37.1 L
Plt Count 322
Sodium 139
Potassium 3.8
Chloride 106
Carbon Dioxide 22
BUN 21 H
Creatinine 1.2
Glucose 94
Calcium 8.6
Total Bilirubin 1.1
AST 30
ALT 39
Alkaline Phosphatase 248 H
Vital Signs:
Vital Signs
Temp Pulse Resp BP Pulse Ox
99 F 93 16 148/71 93
11/28/24 07:31 11/28/24 07:31 11/28/24 07:31 11/28/24 07:31 11/28/24 07:31
I&O
11/27/24 11/28/24 11/29/24
06:59 06:59 06:59
Intake Total 360 / 360 960 / 960
Output Total 775 / 775 200 / 200
Balance -415 / -415 760 / 760
[2024-11-28] MEDS: LIDOCAINE 4% PATCH 2 PATCH TOPICAL (10:41)
[2024-11-28] MEDS: VIBRAMYCIN 100 MG PO ×2 (10:41→21:12)
[2024-11-28] MEDS: TYLENOL 1000 MG PO ×3 (10:41→21:12)
[2024-11-28] MEDS: RISPERDAL 0.25 MG PO (10:41)
[2024-11-28] MEDS: FLEXERIL 5 MG PO (10:44)
[2024-11-28 14:37] VITALS: BMI 24.6
[2024-11-28 15:21] VITALS: BP 124/58
[2024-11-28] MEDS: STERILE WATER FOR INJECTION 10 ML IV (15:44)
[2024-11-28] MEDS: ROCEPHIN 1000 MG IV (15:44)
[2024-11-28] MEDS: LOVENOX 40 MG SC (17:44)
[2024-11-28] MEDS: REMOVE LIDOCAINE PATCH 2 PATCH REMOVE (21:11)
[2024-11-28] MEDS: SENOKOT-S 2 TABLET PO (21:12)
[2024-11-28 23:10] VITALS: BP 140/71
[2024-11-29 04:43] LABS: Hematocrit 35.4 % (39.0-52.0); Hemoglobin 11.9 g/dL (13.0-18.0); Mean Corp Hgb Conc. 33.6 g/dL (33.0-37.0); Mean Corpuscular Volume 83.3 fL (80.0-94.0); Platelet Count 346 10^3/uL (130-400); Red Cell Dist. Width 13.7 % (11.5-14.5)
[2024-11-29 05:07] LABS: Blood Urea Nitrogen 22 mg/dl (9-20); Calcium 8.9 mg/dl (8.4-10.2); Carbon Dioxide 26 mmol/L (22-30); Chloride 108 mmol/L (98-107); Estimated Creatinine Clearance 44 ml/min; Glucose 104 mg/dl (70-99); Potassium 4.2 mmol/L (3.5-5.1); Sodium 139 mmol/L (135-145); eGFR 59.26
[2024-11-29 07:23] VITALS: BP 120/76
[2024-11-29] MEDS: VIBRAMYCIN 100 MG PO (07:37)
[2024-11-29] MEDS: TYLENOL 1000 MG PO ×2 (07:37→15:59)
[2024-11-29] MEDS: LIDOCAINE 4% PATCH 2 PATCH TOPICAL (07:38)
[2024-11-29] MEDS: RISPERDAL 0.25 MG PO (07:38)
[2024-11-29] MEDS: TESSALON PERLES 100 MG PO ×2 (07:38→21:32)
--- NOTE | 2024-11-29 08:26 | W.PN.HOSP.TC ---
Today's Communication/Plan
-
Send urine for testing of Legionella and strep Ag
Sputum culture
Avoid restraints if possible
Chest x ray
Assessment / Plan
Assessment / Plan
PE:
General: chronically ill looking, No Apparent Distress
HEENT: Normocephalic, Atraumatic and Moist Mucous Membranes
Respiratory: Clear, no wheezes
Cardiac: S1 S2
GI: Soft, Nontender, Nondistended and Normal Bowel Sounds;
Rectal: Deferred by Provider
Musculoskeletal: No Clubbing, No Cyanosis and No Edema
Skin: Negative Rash
Neuro: Awake, disoriented X3
Psych: on restraints
# Acute delirium
Likely TME
mentation seems to improve after stopping around the clock Flexeril & avoiding Oxycodone. Treating right lower lobe pneumonia
Only to give Tylenol for back pain if recurs but so far, he is not complaining of it.
Used low-dose Risperdal which seemed to help, we will change it to as needed only. Avoid benzodiazepine or restraints.
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
Or could be related to pleuritic pain, hard to tell at this point but good thing the pain has dissipated.
# Pneumonia, right lower lobe infiltrate suspect community-acquired, although reasonable risk for aspiration given age
Noted febrile within 24 hours postadmission with now rising white count.
Urinalysis negative on admission.
Imaging with 3 mm nonobstructive right-sided kidney stone.
Imaging also suggestive of a right small pleural effusion with adjacent consolidation, reasonable concern for right basilar pneumonia.
Chest x-ray 2 views with right lower lobe consolidation and effusion
Blood cultures negative to date
Repeat urine cultures negative
Initiated antibiotics ceftriaxone 11/23 with addition of doxycycline 11/24
Chest ultrasound with possibly small, although loculated pleural effusion. Not much fluid for thoracentesis.
WBC mild improvement. Not tachypneic. On room air comfortable.
repeat chest x ray 11/29, add PRN Robitussin, ordered Legionella and streptococcal antigen. Sputum culture
Acute kidney injury
Solitary kidney.
Avoid nephrotoxins.
Creatinine improving at 1.2
Observe off IV fluids.
Bladder scan for retention
Mild dysphagia
Status post video swallow evaluation
Per speech continue with IDDS6 with mildly thick liquids
# Mild cognitive impairment. denied dementia, reported living independently but sometimes forgetful
DVT prophylaxis with Lovenox
Conditions prior to admission
Solitary kidney, status post left nephrectomy.
Chronic back pain.
PT/OT-SNF.
Total time spent to see the patient, examine the patient, review data and lab result, discuss treatment plan with patient, nursing staff around 55 minutes
Anticipated Discharge: > 48 hours
Subjective/Interval History
-
Date of Service: November 29, 2024
No chest pain
No sob
No fevers
Objective Data
-
Labs:
Laboratory Results
11/29/24
04:24
WBC 15.1 H
Hgb 11.9 L
Hct 35.4 L
Plt Count 346
Sodium 139
Potassium 4.2
Chloride 108 H
Carbon Dioxide 26
BUN 22 H
Creatinine 1.2
Glucose 104 H
Calcium 8.9
Vital Signs:
Vital Signs
Temp Pulse Resp BP Pulse Ox
98.4 F 93 16 120/76 93
11/29/24 07:23 11/29/24 07:23 11/29/24 07:23 11/29/24 07:23 11/29/24 07:23
I&O
11/28/24 11/29/24 11/30/24
06:59 06:59 06:59
Intake Total 960 / 960 240 / 240
Output Total 200 / 200 200 / 200
Balance 760 / 760 40 / 40
[2024-11-29 14:56] VITALS: BP 154/74
[2024-11-29] MEDS: ROCEPHIN 1000 MG IV (15:59)
[2024-11-29] MEDS: STERILE WATER FOR INJECTION 10 ML IV (15:59)
[2024-11-29] MEDS: LOVENOX 40 MG SC (17:50)
[2024-11-29] MEDS: REMOVE LIDOCAINE PATCH 2 PATCH REMOVE (21:32)
[2024-11-29] MEDS: VIBRAMYCIN PO ×2 (21:32→21:41)
[2024-11-29] MEDS: TYLENOL PO ×2 (21:33→21:41)
[2024-11-29 23:00] VITALS: BP 153/71
[2024-11-30 06:07] LABS: Hematocrit 35.9 % (39.0-52.0); Hemoglobin 11.6 g/dL (13.0-18.0); Mean Corp Hgb Conc. 32.3 g/dL (33.0-37.0); Mean Corpuscular Volume 85.1 fL (80.0-94.0); Platelet Count 403 10^3/uL (130-400); Red Cell Dist. Width 13.7 % (11.5-14.5)
[2024-11-30 06:33] LABS: ALT (SGPT) 40 U/L (0-50); AST (SGOT) 30 U/L (17-59); Albumin 2.9 g/dl (3.5-5.0); Alkaline Phosphatase 268 U/L (38-126); Blood Urea Nitrogen 24 mg/dl (9-20); Calcium 8.6 mg/dl (8.4-10.2); Carbon Dioxide 24 mmol/L (22-30); Chloride 108 mmol/L (98-107); Estimated Creatinine Clearance 44 ml/min; Glucose 103 mg/dl (70-99); Potassium 4.4 mmol/L (3.5-5.1); Sodium 140 mmol/L (135-145); Total Protein 5.3 g/dl (6.3-8.2); eGFR 59.26
[2024-11-30 07:35] VITALS: BP 122/68
[2024-11-30] MEDS: TYLENOL 1000 MG PO ×3 (08:24→22:50)
[2024-11-30] MEDS: VIBRAMYCIN 100 MG PO ×2 (08:24→20:25)
[2024-11-30] MEDS: LIDOCAINE 4% PATCH 2 PATCH TOPICAL (08:24)
[2024-11-30] MEDS: TESSALON PERLES 100 MG PO ×2 (08:24→20:25)
--- NOTE | 2024-11-30 14:47 | W.PN.HOSP.TC ---
Today's Communication/Plan
-
Continue antibiotics
Follow WBC
Pulmonology evaluation
Consider to repeat right chest ultrasound with attempt of thoracentesis
Assessment / Plan
Assessment / Plan
HPI: 84-year-old male with a past medical history of left kidney cancer status post left nephrectomy and chronic back pain with radiculopathy presents with a 2-day history of right upper flank pain. Patient reports that there is dull pain
constantly, with sharpness that waxes and wanes. He denies nausea, vomiting. No constipation, no diarrhea. He has been taking Tylenol and Advil for his pain. His pain is unassociated with food. His reports that he has been working in his
yard quite often, using a weed My. He denies chest pain, denies shortness of breath. No fever, no dysuria, no black or bloody stools.
Right lower back/upper flank pain
Pneumonia, right lower lobe infiltrate with possible parapneumonic pleural effusion
Acute kidney injury
TME, hyperactive daily
Labile hypertension
Mild dysphagia
Conditions prior to admission
Solitary kidney, status post left nephrectomy.
Chronic back pain.
Dementia senile type
Plan
Pneumonia, right lower lobe infiltrate suspect community-acquired, although reasonable risk for aspiration given age and cognitive impairment
Noted febrile within 24 hours postadmission with now rising white count.
Urinalysis negative on admission.
Imaging with 3 mm nonobstructive right-sided kidney stone.
Imaging also suggestive of a right small pleural effusion with adjacent consolidation, reasonable concern for right basilar pneumonia.
Chest x-ray 2 views with right lower lobe consolidation and effusion
Blood cultures negative to date
Repeat urine cultures negative
Initiated antibiotics ceftriaxone 11/23 with addition of doxycycline 11/24
Chest ultrasound with possibly small, although loculated pleural effusion
Loculated pleural effusion not amenable to thoracentesis on 11/26.
WBC remains elevated while on antibiotics but
Follow-up CT scan on 11/30 with right lower lobe process and loculated pleural effusion.
Consult pulmonology
Consider to repeat attempt of thoracentesis
Continue antibiotics and follow WBC
Acute kidney injury
Solitary kidney.
Avoid nephrotoxins.
Creatinine improving at 1.2
Observe off IV fluids.
Bladder scan for retention
Chronic back pain.
Continue symptomatic control including Tylenol, Flexeril, oxycodone for severe pain. Avoid NSAIDs with SHALA
Hyperactive delirium
Underlying cognitive impairment
Suspect dementia senile type
TSH, B12 is in normal limits.
Status post Seroquel
Status post Risperdal changed to as needed
Mental status improved
Has been off restraints
Labile hypertension
Monitor blood pressure closely. If persistently elevated will need to be started on medication.
Blood pressure AM 129/80
Mild dysphagia
Status post video swallow evaluation
Per speech continue with IDDS6 with mildly thick liquids
DVT prophylaxis with Lovenox
Full code
PT/OT-SNF.
Anticipated Discharge: 24 - 48 hours
Subjective/Interval History
-
Date of Service: November 30, 2024
Objective Data
-
Labs:
Laboratory Results
11/30/24
05:38
WBC 16.0 H
Hgb 11.6 L
Hct 35.9 L
Plt Count 403 H
Sodium 140
Potassium 4.4
Chloride 108 H
Carbon Dioxide 24
BUN 24 H
Creatinine 1.2
Glucose 103 H
Calcium 8.6
Total Bilirubin 0.9
AST 30
ALT 40
Alkaline Phosphatase 268 H
Vital Signs:
Vital Signs
Temp Pulse Resp BP Pulse Ox
97.5 F 88 14 122/68 96
11/30/24 07:35 11/30/24 07:35 11/30/24 07:35 11/30/24 07:35 11/30/24 07:45
I&O
11/29/24 11/30/24 12/01/24
06:59 06:59 06:59
Intake Total 720 / 720
Output Total 200 / 200
Balance 520 / 520
Physical Exam
-
General: Well Developed and No Apparent Distress
HEENT: Normocephalic, Atraumatic and Moist Mucous Membranes
Respiratory: Clear to Auscultation (Anterior) and Non Labored Respirations; Negative Accessory Resp Muscle Use
Cardiac: Regular Rhythm and S1/S2; Negative Murmur, Rub or Gallop
GI: Soft, Nontender, Nondistended and Normal Bowel Sounds; Negative Organomegaly
Rectal: Deferred by Provider
Musculoskeletal: No Clubbing, No Cyanosis and No Edema
Skin: Negative Rash
Neuro: Awake
Psych: Calm
[2024-11-30 15:17] VITALS: BP 153/86
--- NOTE | 2024-11-30 15:27 | CON.PUL ---
Consultation
Consultation Request
Date/Time Consultation Requested: 11/30/24
Date/Time Consultation Performed: 11/30/24
Performing Provider: Marilyn
Reason for Consultation: Pleural effusion
Medical History
-
History of Present Illness:
Patient is an 84-year-old male with history of kidney cancer status post left nephrectomy, radiculopathy/chronic back pain, presenting to ER 11/23/24 with right upper flank pain, admitted for possible infection. Chest x-ray demonstrating right
sided infiltrate, suspicious for pneumonia. UA was negative on admission. On repeat chest x-rays, right sided pleural effusion had progressed into loculated appearance. Evaluated for thoracentesis on 11/27 but could not be amenable for sampling
due to a small fluid size. Underwent CT showing moderate size loculated pleural effusion, enlarging.
He provides no additional History/ROS due to dementia.
Past Medical History
Past Medical History: Other (see list below)
Social History
Tobacco: Former Smoker (Quit in his 40s)
Alcohol: None
Drug: None
Family History
Family History: Reviewed & Not Pertinent
Allergies / Home Medications
Allergies
Allergy/AdvReac Type Severity Reaction Status Date / Time
No Known Allergies Allergy Verified 11/22/24 00:44
Home Medications
�Medication �Instructions �Recorded �Confirmed �Last Taken �Type
Unknown Bruise Cream 1 applic topical DAILYPRN PRN 11/22/24 11/22/24 3 Days Ago History
apply to L arm bruise ~11/19/24
Vitamin C 1 tab PO DAILY 11/22/24 11/22/24 Unknown History
acetaminophen 500 mg tablet 1,000 mg PO Q6HPRN PRN mild pain 11/22/24 11/22/24 1 Day Ago History
(Tylenol Extra Strength) ~11/21/24
ibuprofen 200 mg tablet (Advil) 400 mg PO TIDPRN PRN mild pain 11/22/24 11/22/24 Unknown History
Review of Systems
-
History Source: Patient
All other systems: Negative unless noted
Vitals / Labs / Diagnostic Testing
Vital Signs
Temp Pulse Resp BP Pulse Ox
98.2 F 90 20 153/86 94
11/30/24 15:17 11/30/24 15:17 11/30/24 15:17 11/30/24 15:17 11/30/24 15:17
Lab Data
11/30/24 05:38
11/30/24 05:38
Microbiology
11/29/24 14:05 Urine Legionella Urinary Antigen - Final
Negative for Legionella pneumophila Serogroup 1 antigen.
A negative result does not rule out the possiblity of
Legionella infection due to other serogroups or species of
Legionella. Clinical correlation is recommended.
11/29/24 14:05 Urine Streptococcus pneumoniae Antigen (M - Final
Negative for Streptococcus pneumoniae antigen.
A negative result does not exclude infection with
Streptococcus pneumoniae. Clinical correlation is
recommended.
11/23/24 15:15 Blood/Venous Blood Culture - Final
No Growth - Final Report
11/23/24 14:38 Blood/Venous Blood Culture - Final
No Growth - Final Report
Diagnostic Testing:
Physical Exam
-
HEENT: Normocephalic, Anicteric and Moist Mucous Membranes
Cardiovascular: S1/S2 and Regular Rhythm
Respiratory: Clear and Non-Labored Respirations
GI: Soft, Non Distended and Non Tender
Neurology: Awake, Alert, No Motor Deficits and Other (confused)
Skin: Warm and Dry
General: Comfortable and Other (NAD)
Assessment
-
Patient is an 84-year-old male with history of kidney cancer status post left nephrectomy, radiculopathy/chronic back pain, presenting to ER 11/23/24 with right upper flank pain, admitted for possible infection. Chest x-ray demonstrating right
sided infiltrate, suspicious for pneumonia. UA was negative on admission. On repeat chest x-rays, right sided pleural effusion had progressed into loculated appearance. Evaluated for thoracentesis on 11/27 but could not be amenable for sampling
due to a small fluid size. Underwent CT showing moderate size loculated pleural effusion, enlarging. He provides no additional History/ROS due to dementia. We are consulted for eval 11/30/24.
Pneumonia, right lower lobe
Pleural effusion, likely parapneumonic
Right upper flank pain
Fever/leukocytosis
Acute kidney injury
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
Chronic back pain with radiculopathy
Dementia
Plan
No oxygen was needed on admission, currently saturating >90% on RA
Prior history of lung disease is not noted but he was a former smoker about 40 years ago
Suspect patient has pna, possible due to aspiration given his dementia
CXR/CT obtained indicating enlarged loculated effusion, evaluated by IR on 11/27 but insufficient fluid at that time
Other imaging reviewed-- will repeat US to eval for tap
Need diagnostic tap studies to determine cause
ProBNP not obtained on admission, no history of cardiac disease
Prior ECHO results are reviewed indicating normal function in 2011
New baseline testing may be beneficial
Smoking history noted--former smoker, quit >40 years ago
No prior PFT for review
Speech therapy evaluation may be beneficial to r/o aspiration
RUE Cellulitis noted, on IV abx
SHALA noted, peak 1.4--trended down
Follow daily weights/daily BMPs
We will follow
Diagnostic Data
Chest X-Ray:
CT Scan: CHEST 11/30/24- Moderate loculated slightly high attenuation right pleural effusion with extension of small to moderate volume fluid into the right minor fissure and accompanying right lower lobe consolidation extending to the right hilum,
overall markedly limited without intravenous contrast. Malignancy in the right lower lobe cannot be excluded. Tiny left pleural effusion with accompanying left lower lobe opacification most likely representing subsegmental atelectasis. Predominantly
fluid density in the subcarinal mediastinum, indeterminate. Coronary artery calcifications.
US 11/27/24- Trace right pleural effusion. Amount of fluid present not sufficient for safe thoracentesis.
Echo: Stress 2011- Echocardiographic images are good. Baseline EF is 55% without regional wall motion abnormalities. With exercise, there is augmentation of all regional wall motion the EF of 70%. This a normal echocardiographic response to
exercise.
PFT's:
Reports and relevant images were personally reviewed.
Total time spent on this consultation __75__ minutes which includes review of history, physical exam, medications, laboratory data, personal review of imaging, extensive review of outpatient records, discussion with care team and respiratory therapy.
[2024-11-30 15:47] VITALS: BP 139/77; PULSE 89; O2SAT 92
[2024-11-30 15:48] VITALS: BP 139/77; PULSE 89; O2SAT 92
[2024-11-30] MEDS: STERILE WATER FOR INJECTION 10 ML IV (16:25)
[2024-11-30] MEDS: ROCEPHIN 1000 MG IV (16:25)
[2024-11-30] MEDS: LOVENOX 40 MG SC (17:05)
[2024-11-30] MEDS: REMOVE LIDOCAINE PATCH 2 PATCH REMOVE (20:26)
[2024-11-30 23:20] VITALS: BP 121/59
[2024-12-01] MEDS: RISPERDAL 0.25 MG PO ×2 (00:45→20:01)
[2024-12-01 06:09] LABS: Hematocrit 34.0 % (39.0-52.0); Hemoglobin 11.0 g/dL (13.0-18.0); Mean Corp Hgb Conc. 32.4 g/dL (33.0-37.0); Mean Corpuscular Volume 84.6 fL (80.0-94.0); Nucleated Red Blood Cells % 0 % (-); Platelet Count 412 10^3/uL (130-400); Red Cell Dist. Width 13.7 % (11.5-14.5)
[2024-12-01 06:34] LABS: Blood Urea Nitrogen 26 mg/dl (9-20); Calcium 8.2 mg/dl (8.4-10.2); Carbon Dioxide 28 mmol/L (22-30); Chloride 107 mmol/L (98-107); Estimated Creatinine Clearance 48 ml/min; Glucose 122 mg/dl (70-99); Potassium 4.3 mmol/L (3.5-5.1); Sodium 138 mmol/L (135-145); eGFR > 60.00
[2024-12-01 07:05] VITALS: BP 141/67
[2024-12-01 07:40] VITALS: BP 141/65
[2024-12-01] MEDS: VIBRAMYCIN 100 MG PO ×2 (08:19→20:01)
[2024-12-01] MEDS: TYLENOL 1000 MG PO ×3 (08:19→21:17)
[2024-12-01] MEDS: LIDOCAINE 4% PATCH 2 PATCH TOPICAL (08:19)
[2024-12-01] MEDS: TESSALON PERLES 100 MG PO ×2 (08:19→20:01)
--- NOTE | 2024-12-01 09:31 | W.PN.PUL3 ---
Today's Communication / Plan
-
IR consult for tap and/or R chest tube drainage
IV abx are on board, await labs from pleural studies
Baseline cardiac testing if indicated
Assessment
-
Patient is an 84-year-old male with history of kidney cancer status post left nephrectomy, radiculopathy/chronic back pain, presenting to ER 11/23/24 with right upper flank pain, admitted for possible infection. Chest x-ray demonstrating right
sided infiltrate, suspicious for pneumonia. UA was negative on admission. On repeat chest x-rays, right sided pleural effusion had progressed into loculated appearance. Evaluated for thoracentesis on 11/27 but could not be amenable for sampling
due to a small fluid size. Underwent CT showing moderate size loculated pleural effusion, enlarging. He provides no additional History/ROS due to dementia. We are consulted for eval 11/30/24.
Pneumonia, right lower lobe
Pleural effusion, likely parapneumonic
Right upper flank pain
Fever/leukocytosis
Acute kidney injury
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
Chronic back pain with radiculopathy
Dementia
Plan
No oxygen was needed on admission, currently saturating >90% on RA
Prior history of lung disease is not noted but he was a former smoker about 40 years ago
Suspect patient has pna, possible due to aspiration given his dementia
CXR/CT obtained indicating enlarged loculated effusion, evaluated by IR on 11/27 but insufficient fluid at that time
Other imaging reviewed-- will repeat US to eval for tap -- IR consult placed for possible chest tube drainage
Need diagnostic tap studies to determine cause--labs sent
ProBNP not obtained on admission, no history of cardiac disease
Prior ECHO results are reviewed indicating normal function in 2011
New baseline testing may be beneficial
Smoking history noted--former smoker, quit >40 years ago
No prior PFT for review
Speech therapy evaluation may be beneficial to r/o aspiration
RUE Cellulitis noted, on IV abx
SHALA noted, peak 1.4--trended down
Follow daily weights/daily BMPs
We will follow
Diagnostic Data
Chest X-Ray:
CT Scan: CHEST 11/30/24- Moderate loculated slightly high attenuation right pleural effusion with extension of small to moderate volume fluid into the right minor fissure and accompanying right lower lobe consolidation extending to the right hilum,
overall markedly limited without intravenous contrast. Malignancy in the right lower lobe cannot be excluded. Tiny left pleural effusion with accompanying left lower lobe opacification most likely representing subsegmental atelectasis. Predominantly
fluid density in the subcarinal mediastinum, indeterminate. Coronary artery calcifications.
US 11/27/24- Trace right pleural effusion. Amount of fluid present not sufficient for safe thoracentesis.
Echo: Stress 2011- Echocardiographic images are good. Baseline EF is 55% without regional wall motion abnormalities. With exercise, there is augmentation of all regional wall motion the EF of 70%. This a normal echocardiographic response to
exercise.
PFT's:
Reports and relevant images were personally reviewed.
Total time spent on this consultation __50__ minutes which includes review of history, physical exam, medications, laboratory data, personal review of imaging, extensive review of outpatient records, discussion with care team and respiratory therapy.
Subjective Data
-
Date of Service:
Date of Service: December 01, 2024
Chief Complaint: Pulmonary Follow Up
Subjective:
No new complaints, confused at baseline
Stable on RA, mild cough observed
Objective Data
Data Reviewed
Vital Signs / I&O / Oxygen:
Vital Signs
Temp Pulse Resp BP Pulse Ox
98.1 F 87 24 141/65 97
12/01/24 07:40 12/01/24 07:40 12/01/24 07:40 12/01/24 07:40 12/01/24 07:40
Intake and Output
11/30/24 12/01/24 12/02/24
06:59 06:59 06:59
Intake Total 720 / 720 210 / 210
Output Total 200 / 200
Balance 520 / 520 210 / 210
SaO2 97
Physical Exam
General: Comfortable and Other (NAD)
HEENT: Normocephalic, Anicteric and Moist Mucous Membranes
Cardiovascular: S1-S2 and Regular Rhythm
Respiratory: Crackles (mild R) and Non-Labored Respirations
GI: Soft, Non Distended and Non Tender
Neurology: Awake, Alert, No Motor Deficits and Other (confused)
Skin: Warm, Dry and Good Color
Labs/Micro/Reports
Lab Data
12/01/24 05:37
12/01/24 05:37
Microbiology
11/29/24 14:05 Urine Legionella Urinary Antigen - Final
Negative for Legionella pneumophila Serogroup 1 antigen.
A negative result does not rule out the possiblity of
Legionella infection due to other serogroups or species of
Legionella. Clinical correlation is recommended.
11/29/24 14:05 Urine Streptococcus pneumoniae Antigen (M - Final
Negative for Streptococcus pneumoniae antigen.
A negative result does not exclude infection with
Streptococcus pneumoniae. Clinical correlation is
recommended.
11/23/24 15:15 Blood/Venous Blood Culture - Final
No Growth - Final Report
11/23/24 14:38 Blood/Venous Blood Culture - Final
No Growth - Final Report
--- NOTE | 2024-12-01 09:52 | CM ---
PT indicated SNF and OT indicated Out pt PT.
Pt off restraints .
LM with [facility] [phone] and dgt Gela [phone] LM no call back yet.
PLAN Review PT with family for dc plan.
--- NOTE | 2024-12-01 14:14 | W.PN.HOSP.TC ---
Today's Communication/Plan
-
Diagnostic/therapeutic thoracentesis with possible chest tube placement
Continue antibiotics
Follow WBC
Pulmonary input appreciated
Assessment / Plan
Assessment / Plan
HPI: 84-year-old male with a past medical history of left kidney cancer status post left nephrectomy and chronic back pain with radiculopathy presents with a 2-day history of right upper flank pain. Patient reports that there is dull pain
constantly, with sharpness that waxes and wanes. He denies nausea, vomiting. No constipation, no diarrhea. He has been taking Tylenol and Advil for his pain. His pain is unassociated with food. His reports that he has been working in his
yard quite often, using a weed My. He denies chest pain, denies shortness of breath. No fever, no dysuria, no black or bloody stools.
Right lower back/upper flank pain
Pneumonia, right lower lobe infiltrate with possible parapneumonic pleural effusion
Acute kidney injury
TME, hyperactive daily
Labile hypertension
Mild dysphagia
Conditions prior to admission
Solitary kidney, status post left nephrectomy.
Chronic back pain.
Dementia senile type
Plan
Pneumonia, right lower lobe infiltrate suspect community-acquired, although reasonable risk for aspiration given age and cognitive impairment
Noted febrile within 24 hours postadmission with now rising white count.
Urinalysis negative on admission.
Imaging with 3 mm nonobstructive right-sided kidney stone.
Imaging also suggestive of a right small pleural effusion with adjacent consolidation, reasonable concern for right basilar pneumonia.
Chest x-ray 2 views with right lower lobe consolidation and effusion
Blood cultures negative to date
Repeat urine cultures negative
Initiated antibiotics ceftriaxone 11/23 with addition of doxycycline 11/24
Chest ultrasound with possibly small, although loculated pleural effusion
Loculated pleural effusion not amenable to thoracentesis on 11/26.
WBC remains elevated while on antibiotics
Follow-up CT scan on 11/30 with right lower lobe process and loculated pleural effusion.
Repeat ultrasound on 12/01 with worsening right pleural effusion possible loculation
Interventional radiology already consulted for diagnostic/therapeutic thoracentesis possibly chest tube placement tentatively on 12/02
Acute kidney injury
Solitary kidney.
Avoid nephrotoxins.
Creatinine improving at 1.2
Observe off IV fluids.
Bladder scan for retention
Chronic back pain.
Continue symptomatic control including Tylenol, Flexeril, oxycodone for severe pain. Avoid NSAIDs with SHALA
Hyperactive delirium
Underlying cognitive impairment
Suspect dementia senile type
TSH, B12 is in normal limits.
Status post Seroquel
Status post Risperdal changed to as needed
Mental status improved
Has been off restraints
Labile hypertension
Monitor blood pressure closely. If persistently elevated will need to be started on medication.
Blood pressure AM 129/80
Mild dysphagia
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
Status post video swallow evaluation
Per speech continue with IDDS6 with mildly thick liquids
DVT prophylaxis with Lovenox
Full code
PT/OT-SNF.
Anticipated Discharge: > 48 hours
Subjective/Interval History
-
Date of Service: December 01, 2024
Objective Data
-
Labs:
Laboratory Results
12/01/24
05:37
WBC 16.1 H
Hgb 11.0 L
Hct 34.0 L
Plt Count 412 H
Sodium 138
Potassium 4.3
Chloride 107
Carbon Dioxide 28
BUN 26 H
Creatinine 1.1
Glucose 122 H
Calcium 8.2 L
Vital Signs:
Vital Signs
Temp Pulse Resp BP Pulse Ox
98.1 F 87 24 141/65 97
12/01/24 07:40 12/01/24 07:40 12/01/24 07:40 12/01/24 07:40 12/01/24 07:40
I&O
11/30/24 12/01/24 12/02/24
06:59 06:59 06:59
Intake Total 720 / 720 210 / 210
Output Total 200 / 200
Balance 520 / 520 210 / 210
Physical Exam
-
General: Well Developed and No Apparent Distress
HEENT: Normocephalic, Atraumatic and Moist Mucous Membranes
Respiratory: Clear to Auscultation (Anterior) and Non Labored Respirations; Negative Accessory Resp Muscle Use
Cardiac: Regular Rhythm and S1/S2; Negative Murmur, Rub or Gallop
GI: Soft, Nontender, Nondistended and Normal Bowel Sounds; Negative Organomegaly
Rectal: Deferred by Provider
Musculoskeletal: No Clubbing, No Cyanosis and No Edema
Skin: Negative Rash
Neuro: Awake
Psych: Calm
--- NOTE | 2024-12-01 14:27 | PN.CDI ---
CDI
- -
CDI:
Physician Documentation Request
Admit Date: 11/23/24 14:20
Dear Doctor Espinoza,
Patient present to ED with pain in the right upper to mid abdomen on 11/22. Patient was observation status.
11/23 Patient became an admission.
11/23 hospitalist progress notes states 'Imaging also suggestive of a right small pleural effusion with adjacent consolidation, reasonable concern for right basilar pneumonia...Empiric antibiotics/ceftriaxone'
11/23 WBC 14.9 T max 11/23 103.1 HR documented 85-92 RR 14-16
Please clarify which of the following most accurately describes the status of the patient's infection on admission
Sepsis- POA
- Systemic manifestations of infection, with 2 or more SIRS criteria which include:
- Fever >100.9 degrees F or hypothermia < 96.8 degrees F
- Leukocytosis - WBC > 12,000 or leukopenia - WBC < 4,000 or > 10% bands
- Tachycardia > 90 beats per minute
- Tachypnea - RR > 20 breaths per minute or PaCO2 , 32mmHg
Source: [employer] Manual 2013
Localized Infection Only, Without Systemic Illness
Other
Use of terms such as suspected, likely, concern for, or probable (associated with a specific diagnosis that is being evaluated, monitored, or treated as if it exists) are acceptable and can be coded in the inpatient setting, when documented at the
time of discharge.
Thank you,
Naye Pfeiffer RN, BSN
CDI Specialist
tiger text
Please use your independent medical judgment in providing your response.
[2024-12-01 15:08] VITALS: BP 127/58
[2024-12-01] MEDS: STERILE WATER FOR INJECTION 10 ML IV (17:03)
[2024-12-01] MEDS: ROCEPHIN 1000 MG IV (17:04)
[2024-12-01] MEDS: LOVENOX 40 MG SC (17:04)
[2024-12-01] MEDS: REMOVE LIDOCAINE PATCH 2 PATCH REMOVE (20:01)
[2024-12-01] MEDS: TORADOL 15 MG IV (21:47)
[2024-12-01 23:23] VITALS: BP 120/59
[2024-12-02] VITALS (7 sets, daily range): BP systolic 77–154; BP diastolic 58–102
[2024-12-02 06:42] LABS: Hematocrit 35.1 % (39.0-52.0); Hemoglobin 11.4 g/dL (13.0-18.0); Mean Corp Hgb Conc. 32.5 g/dL (33.0-37.0); Mean Corpuscular Volume 85.8 fL (80.0-94.0); Nucleated Red Blood Cells % 0 % (-); Platelet Count 416 10^3/uL (130-400); Red Cell Dist. Width 13.7 % (11.5-14.5)
[2024-12-02 06:49] LABS: INR 1.19; PT 15.4 Sec (11.4-14.6)
[2024-12-02 07:04] LABS: Blood Urea Nitrogen 29 mg/dl (9-20); Calcium 8.3 mg/dl (8.4-10.2); Carbon Dioxide 27 mmol/L (22-30); Chloride 106 mmol/L (98-107); Estimated Creatinine Clearance 40 ml/min; Glucose 126 mg/dl (70-99); Potassium 4.2 mmol/L (3.5-5.1); Sodium 139 mmol/L (135-145); eGFR 53.84
[2024-12-02] MEDS: LIDOCAINE 4% PATCH 2 PATCH TOPICAL (08:46)
[2024-12-02] MEDS: TESSALON PERLES 100 MG PO ×2 (08:46→20:35)
[2024-12-02] MEDS: TYLENOL 1000 MG PO ×3 (08:46→22:10)
[2024-12-02] MEDS: VIBRAMYCIN 100 MG PO (08:46)
--- NOTE | 2024-12-02 11:28 | W.PN.PUL3 ---
Today's Communication / Plan
-
Awaiting chest tube placement today
Follow up pleural labs for further treatment/work up
Assessment
-
Patient is an 84-year-old male with history of kidney cancer status post left nephrectomy, radiculopathy/chronic back pain, presenting to ER 11/23/24 with right upper flank pain, admitted for possible infection. Chest x-ray demonstrating right
sided infiltrate, suspicious for pneumonia. UA was negative on admission. On repeat chest x-rays, right sided pleural effusion had progressed into loculated appearance. Evaluated for thoracentesis on 11/27 but could not be amenable for sampling
due to a small fluid size. Underwent CT showing moderate size loculated pleural effusion, enlarging. He provides no additional History/ROS due to dementia. We are consulted for eval 11/30/24.
Pneumonia, right lower lobe
Pleural effusion, likely parapneumonic
Right upper flank pain
Fever/leukocytosis
Acute kidney injury
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
Chronic back pain with radiculopathy
Dementia
Plan
No oxygen was needed on admission, currently saturating >90% on RA
Prior history of lung disease is not noted but he was a former smoker about 40 years ago
Suspect patient has pna, possible due to aspiration given his dementia
CXR/CT obtained indicating enlarged loculated effusion, evaluated by IR on 11/27 but insufficient fluid at that time
Other imaging reviewed-- will repeat US to eval for tap -- IR consult placed for possible chest tube drainage
Need diagnostic tap studies to determine cause--labs sent
ProBNP not obtained on admission, no history of cardiac disease
Prior ECHO results are reviewed indicating normal function in 2011
New baseline testing may be beneficial
Smoking history noted--former smoker, quit >40 years ago
No prior PFT for review
Speech therapy evaluation may be beneficial to r/o aspiration
RUE Cellulitis noted, on IV abx
SHALA noted, peak 1.4--trended down
Follow daily weights/daily BMPs
We will follow
Diagnostic Data
Chest X-Ray:
CT Scan: CHEST 11/30/24- Moderate loculated slightly high attenuation right pleural effusion with extension of small to moderate volume fluid into the right minor fissure and accompanying right lower lobe consolidation extending to the right hilum,
overall markedly limited without intravenous contrast. Malignancy in the right lower lobe cannot be excluded. Tiny left pleural effusion with accompanying left lower lobe opacification most likely representing subsegmental atelectasis. Predominantly
fluid density in the subcarinal mediastinum, indeterminate. Coronary artery calcifications.
US 11/27/24- Trace right pleural effusion. Amount of fluid present not sufficient for safe thoracentesis.
Echo: Stress 2011- Echocardiographic images are good. Baseline EF is 55% without regional wall motion abnormalities. With exercise, there is augmentation of all regional wall motion the EF of 70%. This a normal echocardiographic response to
exercise.
PFT's:
Reports and relevant images were personally reviewed.
Total time spent on this consultation __45__ minutes which includes review of history, physical exam, medications, laboratory data, personal review of imaging, extensive review of outpatient records, discussion with care team and respiratory therapy.
Subjective Data
-
Date of Service:
Date of Service: December 02, 2024
Chief Complaint: Pulmonary Follow Up
Subjective:
Remains clinically unchanged
Objective Data
Data Reviewed
Vital Signs / I&O / Oxygen:
Vital Signs
Temp Pulse Resp BP Pulse Ox
98.5 F 81 16 145/69 95
12/02/24 08:45 12/02/24 08:45 12/02/24 08:45 12/02/24 08:45 12/02/24 08:45
Intake and Output
12/01/24 12/02/24 12/03/24
06:59 06:59 06:59
Intake Total 210 / 210 480 / 480
Balance 210 / 210 480 / 480
SaO2 95
Physical Exam
General: Comfortable and Other (NAD)
HEENT: Normocephalic, Anicteric and Moist Mucous Membranes
Cardiovascular: S1-S2 and Regular Rhythm
Respiratory: Crackles (mild R) and Non-Labored Respirations
GI: Soft, Non Distended and Non Tender
Neurology: Awake, Alert, No Motor Deficits and Other (confused)
Skin: Warm, Dry and Good Color
Labs/Micro/Reports
Lab Data
12/02/24 06:15
12/02/24 06:15
Laboratory Results
12/02/24
06:15
PT 15.4 H
INR 1.19
Microbiology
11/29/24 14:05 Urine Legionella Urinary Antigen - Final
Negative for Legionella pneumophila Serogroup 1 antigen.
A negative result does not rule out the possiblity of
Legionella infection due to other serogroups or species of
Legionella. Clinical correlation is recommended.
11/29/24 14:05 Urine Streptococcus pneumoniae Antigen (M - Final
Negative for Streptococcus pneumoniae antigen.
A negative result does not exclude infection with
Streptococcus pneumoniae. Clinical correlation is
recommended.
--- NOTE | 2024-12-02 15:22 | W.PN.HOSP.TC ---
Today's Communication/Plan
-
Chest tube placement
Follow output and fluid analysis
Continue antibiotics
Assessment / Plan
Assessment / Plan
HPI: 84-year-old male with a past medical history of left kidney cancer status post left nephrectomy and chronic back pain with radiculopathy presents with a 2-day history of right upper flank pain. Patient reports that there is dull pain
constantly, with sharpness that waxes and wanes. He denies nausea, vomiting. No constipation, no diarrhea. He has been taking Tylenol and Advil for his pain. His pain is unassociated with food. His reports that he has been working in his
yard quite often, using a [employer]ed My. He denies chest pain, denies shortness of breath. No fever, no dysuria, no black or bloody stools.
Right lower back/upper flank pain
Pneumonia, right lower lobe infiltrate with possible parapneumonic pleural effusion
Acute kidney injury
TME, hyperactive daily
Labile hypertension
Mild dysphagia
Conditions prior to admission
Solitary kidney, status post left nephrectomy.
Chronic back pain.
Dementia senile type
Plan
Pneumonia, right lower lobe infiltrate suspect community-acquired, although reasonable risk for aspiration given age and cognitive impairment
Noted febrile within 24 hours postadmission with now rising white count.
Urinalysis negative on admission.
Imaging with 3 mm nonobstructive right-sided kidney stone.
Imaging also suggestive of a right small pleural effusion with adjacent consolidation, reasonable concern for right basilar pneumonia.
Chest x-ray 2 views with right lower lobe consolidation and effusion
Blood cultures negative to date
Repeat urine cultures negative
Chest ultrasound with possibly small, although loculated pleural effusion
Loculated pleural effusion not amenable to thoracentesis on 11/26.
WBC remains elevated while on antibiotics
Follow-up CT scan on 11/30 with right lower lobe process and loculated pleural effusion.
Repeat ultrasound on 12/01 with worsening right pleural effusion possible loculation
Status post right chest tube placement by [facility] on 12/02. Monitor output. With loculations follow-up with imaging, consider tPA/tube repositioning. Follow cultures/fluid analysis
Continue antibiotics ceftriaxone. Status post 7 days of doxycycline
Acute kidney injury
Solitary kidney.
Avoid nephrotoxins.
Creatinine improving at 1.2
Observe off IV fluids.
Bladder scan for retention
Chronic back pain.
Continue symptomatic control including Tylenol, Flexeril, oxycodone for severe pain. Avoid NSAIDs with SHALA
Hyperactive delirium
Underlying cognitive impairment
Suspect dementia senile type
TSH, B12 is in normal limits.
Status post Seroquel
Status post Risperdal changed to as needed
Mental status improved
Has been off restraints
Labile hypertension
Monitor blood pressure closely. If persistently elevated will need to be started on medication.
Blood pressure AM 129/80
Mild dysphagia
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
Status post video swallow evaluation
Per speech continue with IDDS6 with mildly thick liquids
DVT prophylaxis with Lovenox
Full code
PT/OT-SNF.
Anticipated Discharge: > 48 hours
Subjective/Interval History
-
Date of Service: December 02, 2024
Objective Data
-
Labs:
Laboratory Results
12/02/24
06:15
WBC 17.1 H
Hgb 11.4 L
Hct 35.1 L
Plt Count 416 H
PT 15.4 H
INR 1.19
Sodium 139
Potassium 4.2
Chloride 106
Carbon Dioxide 27
BUN 29 H
Creatinine 1.3
Glucose 126 H
Calcium 8.3 L
Vital Signs:
Vital Signs
Temp Pulse Resp BP Pulse Ox
98.1 F 80 28 119/95 94
12/02/24 14:55 12/02/24 15:05 12/02/24 15:05 12/02/24 15:05 12/02/24 15:05
I&O
12/01/24 12/02/24 12/03/24
06:59 06:59 06:59
Intake Total 210 / 210 480 / 480 175 / 175
Balance 210 / 210 480 / 480 175 / 175
Physical Exam
-
General: Well Developed and No Apparent Distress
HEENT: Normocephalic, Atraumatic and Moist Mucous Membranes
Respiratory: Non Labored Respirations and Chest Tubes (Right chest tube in place with serosanguineous fluid); Negative Accessory Resp Muscle Use
Cardiac: Regular Rhythm and S1/S2; Negative Murmur, Rub or Gallop
GI: Soft, Nontender, Nondistended and Normal Bowel Sounds; Negative Organomegaly
Rectal: Deferred by Provider
Musculoskeletal: No Clubbing, No Cyanosis and No Edema
Skin: Negative Rash
Neuro: Awake
Psych: Calm
[2024-12-02 15:26] LABS: Body Fluid Second Tech AMA
[2024-12-02] MEDS: ROCEPHIN 1000 MG IV (17:23)
[2024-12-02] MEDS: STERILE WATER FOR INJECTION 10 ML IV (17:23)
[2024-12-02] MEDS: LOVENOX 40 MG SC (17:24)
[2024-12-02] MEDS: REMOVE LIDOCAINE PATCH 2 PATCH REMOVE (20:35)
[2024-12-03 07:15] LABS: Hematocrit 36.2 % (39.0-52.0); Hemoglobin 11.7 g/dL (13.0-18.0); Mean Corp Hgb Conc. 32.3 g/dL (33.0-37.0); Mean Corpuscular Volume 84.4 fL (80.0-94.0); Nucleated Red Blood Cells % 0 % (-); Platelet Count 488 10^3/uL (130-400); Red Cell Dist. Width 13.5 % (11.5-14.5)
[2024-12-03] MEDS: LIDOCAINE 4% PATCH 2 PATCH TOPICAL (07:28)
[2024-12-03] MEDS: TESSALON PERLES 100 MG PO ×2 (07:28→19:37)
[2024-12-03] MEDS: TYLENOL 1000 MG PO ×3 (07:28→21:42)
[2024-12-03 07:47] VITALS: BP 135/80
--- NOTE | 2024-12-03 09:26 | W.PN.PUL3 ---
Today's Communication / Plan
-
Chest tube placed 12/02, pleural studies reviewed indicating exudate/empyema based on pH criteria
Agree with continued IV antibiotics, culture and cytology are pending
Trial of lytics today as his output has slowed, case discussed with IR
CT chest in AM
Assessment
-
Patient is an 84-year-old male with history of kidney cancer status post left nephrectomy, radiculopathy/chronic back pain, presenting to ER 11/23/24 with right upper flank pain, admitted for possible infection. Chest x-ray demonstrating right
sided infiltrate, suspicious for pneumonia. UA was negative on admission. On repeat chest x-rays, right sided pleural effusion had progressed into loculated appearance. Evaluated for thoracentesis on 11/27 but could not be amenable for sampling
due to a small fluid size. Underwent CT showing moderate size loculated pleural effusion, enlarging. He provides no additional History/ROS due to dementia. We are consulted for eval 11/30/24.
Pneumonia, right lower lobe suspect aspiration
Pleural effusion, likely empyema
Right upper flank pain
Fever/leukocytosis
Acute kidney injury
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
Chronic back pain with radiculopathy
Dementia
Plan
No oxygen was needed on admission, currently saturating >90% on RA
Prior history of lung disease is not noted but he was a former smoker about 40 years ago
Suspect patient has pna, possible due to aspiration given his dementia
CXR/CT obtained indicating enlarged loculated effusion, evaluated by IR on 11/27 but insufficient fluid at that time
IR consult, s/p chest tube 12/02/24
Labs reviewed: pH 6.84, WBC 4144, Glu <30, TP 4.2, LDH 1265--indicated exudate/empyema noted
Can trial lytic therapy today as drainage has decreased over the past [address] scan planning for a.m.
Reviewed plan of care with IR
ProBNP not obtained on admission, no history of cardiac disease
Prior ECHO results are reviewed indicating normal function in 2012
Not likely CHF related
Smoking history noted--former smoker, quit >40 years ago
No prior PFT for review
Speech therapy evaluation may be beneficial to r/o aspiration
VSE 11/27 noting mild pharyngeal dysphagia
He is placed on a modified diet
Speech following
RUE Cellulitis noted, on IV abx
SHALA noted, peak 1.4--trended down
Follow daily weights/daily BMPs
Diagnostic Data
Chest X-Ray:
CT Scan: CHEST 11/30/24- Moderate loculated slightly high attenuation right pleural effusion with extension of small to moderate volume fluid into the right minor fissure and accompanying right lower lobe consolidation extending to the right hilum,
overall markedly limited without intravenous contrast. Malignancy in the right lower lobe cannot be excluded. Tiny left pleural effusion with accompanying left lower lobe opacification most likely representing subsegmental atelectasis. Predominantly
fluid density in the subcarinal mediastinum, indeterminate. Coronary artery calcifications.
US 11/27/24- Trace right pleural effusion. Amount of fluid present not sufficient for safe thoracentesis.
Echo: Stress 2011- Echocardiographic images are good. Baseline EF is 55% without regional wall motion abnormalities. With exercise, there is augmentation of all regional wall motion the EF of 70%. This a normal echocardiographic response to
exercise.
PFT's:
Reports and relevant images were personally reviewed.
Total time spent on this consultation __54__ minutes which includes review of history, physical exam, medications, laboratory data, personal review of imaging, extensive review of outpatient records, discussion with care team and respiratory therapy.
Subjective Data
-
Date of Service:
Date of Service: December 03, 2024
Chief Complaint: Pulmonary Follow Up
Subjective:
no new complaints, stable on RA
some irritation from chest tube, otherwise no issues
Objective Data
Data Reviewed
Vital Signs / I&O / Oxygen:
Vital Signs
Temp Pulse Resp BP Pulse Ox
97.0 F 87 18 135/80 97
12/03/24 07:47 12/03/24 07:47 12/03/24 07:47 12/03/24 07:47 12/03/24 07:47
Intake and Output
12/02/24 12/03/24 12/04/24
06:59 06:59 06:59
Intake Total 480 / 480 655 / 655
Output Total 895 / 895
Balance 480 / 480 -240 / -240
SaO2 97
Physical Exam
General: Comfortable and Other (NAD)
HEENT: Normocephalic, Anicteric and Moist Mucous Membranes
Cardiovascular: S1-S2 and Regular Rhythm
Respiratory: Clear, Non-Labored Respirations and Chest Tube
GI: Soft, Non Distended and Non Tender
Neurology: Awake, Alert, No Motor Deficits and Other (confused)
Skin: Warm, Dry and Good Color
Labs/Micro/Reports
Lab Data
12/03/24 07:05
12/02/24 06:15
Microbiology
12/02/24 15:03 Pleural Fluid Gram Stain - Preliminary
[2024-12-03 10:52] VITALS: BP 106/80
[2024-12-03] MEDS: ROXICODONE 5 MG PO ×2 (11:03→17:59)
--- NOTE | 2024-12-03 12:22 | PTCARENOTE ---
Pt reports the feeling of pain to his R side/chest area. Chest tube remains intact to R upper ribs. EKG obtained and WNL. MD made aware. Pain medications ordered and administered. Upon reassessment, pt states that he feels better after medications.
Plan of care ongoing.
--- NOTE | 2024-12-03 13:54 | CM ---
Chart reviewed. Prev PT on 11/30 suggesting SNF, OT eval yesterday suggested OP therapy.
Patient refused PT yesterday, will re-attempt today
CM will cont to follow for d/c planning
Plan: Follow up w/ PT regarding recommendations (Home w/ OP vs SNF)
--- NOTE | 2024-12-03 14:41 | PN.IRAD.UPD ---
Update Note - IRAD
- -
Instilled 50ml of TPA and 50ml of Dornase into right sided chest tube and clamped the tube. Nurse Karey was informed to unclamp the tube in 2 hours at 16:30.
Taz Marinelli RT(R)()
[2024-12-03 14:51] VITALS: BP 126/64
--- NOTE | 2024-12-03 14:54 | W.PN.HOSP.TC ---
Today's Communication/Plan
-
Continue chest tube
tPA lysis
CT scan follow-up lysis in a.m.
Antibiotics/ceftriaxone
Follow WBC trend
Analgesic regimen with Tylenol and addition of oxycodone
Assessment / Plan
Assessment / Plan
HPI: 84-year-old male with a past medical history of left kidney cancer status post left nephrectomy and chronic back pain with radiculopathy presents with a 2-day history of right upper flank pain. Patient reports that there is dull pain
constantly, with sharpness that waxes and wanes. He denies nausea, vomiting. No constipation, no diarrhea. He has been taking Tylenol and Advil for his pain. His pain is unassociated with food. His reports that he has been working in his
yard quite often, using a weed My. He denies chest pain, denies shortness of breath. No fever, no dysuria, no black or bloody stools.
Right lower back/upper flank pain
Pneumonia, right lower lobe infiltrate with possible parapneumonic pleural effusion
Acute kidney injury
TME, hyperactive daily
Labile hypertension
Mild dysphagia
Conditions prior to admission
Solitary kidney, status post left nephrectomy.
Chronic back pain.
Dementia senile type
Plan
Pneumonia, right lower lobe infiltrate suspect community-acquired, although reasonable risk for aspiration given age and cognitive impairment
Noted febrile within 24 hours postadmission with now rising white count.
Urinalysis negative on admission.
Imaging with 3 mm nonobstructive right-sided kidney stone.
Imaging also suggestive of a right small pleural effusion with adjacent consolidation, reasonable concern for right basilar pneumonia.
Chest x-ray 2 views with right lower lobe consolidation and effusion
Blood cultures negative to date
Repeat urine cultures negative
Chest ultrasound with possibly small, although loculated pleural effusion
Loculated pleural effusion not amenable to thoracentesis on 11/26.
WBC remains elevated while on antibiotics
Follow-up CT scan on 11/30 with right lower lobe process and loculated pleural effusion.
Repeat ultrasound on 12/01 with worsening right pleural effusion possible loculation
Status post right chest tube placement by [facility] on 12/02. Noted for pH 6.84, WBC 4144, LDH 1265
12/03 chest tube output around 100 over 24 hours. tPA lysis
Reimaging with CT scan tentatively on 12/04 following lysis treatment
Continue antibiotics ceftriaxone. Status post 7 days of doxycycline
Acute kidney injury
Solitary kidney.
Avoid nephrotoxins.
Creatinine improving at 1.2
Observe off IV fluids.
Bladder scan for retention
Chronic back pain.
Continue symptomatic control including Tylenol, Flexeril, oxycodone for severe pain. Avoid NSAIDs with SHALA
Hyperactive delirium
Underlying cognitive impairment
Suspect dementia senile type
TSH, B12 is in normal limits.
Status post Seroquel
Status post Risperdal changed to as needed
Mental status improved
Has been off restraints
Labile hypertension
Monitor blood pressure closely. If persistently elevated will need to be started on medication.
Blood pressure AM 129/80
Mild dysphagia
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
Status post video swallow evaluation
Per speech continue with IDDS6 with mildly thick liquids
DVT prophylaxis with Lovenox
Full code
PT/OT-SNF.
Anticipated Discharge: > 48 hours
Subjective/Interval History
-
Date of Service: December 03, 2024
Objective Data
-
Labs:
Laboratory Results
12/03/24
07:05
WBC 20.9 H
Hgb 11.7 L
Hct 36.2 L
Plt Count 488 H
Vital Signs:
Vital Signs
Temp Pulse Resp BP Pulse Ox
98 F 81 17 106/80 97
12/03/24 10:52 12/03/24 10:52 12/03/24 10:52 12/03/24 10:52 12/03/24 10:52
I&O
12/02/24 12/03/24 12/04/24
06:59 06:59 06:59
Intake Total 480 / 480 655 / 655
Output Total 895 / 895 150 / 150
Balance 480 / 480 -240 / -240 -150 / -150
Physical Exam
-
General: Well Developed and No Apparent Distress
HEENT: Normocephalic, Atraumatic and Moist Mucous Membranes
Respiratory: Non Labored Respirations and Chest Tubes (Right chest tube in place with serosanguineous fluid); Negative Accessory Resp Muscle Use
Cardiac: Regular Rhythm and S1/S2; Negative Murmur, Rub or Gallop
GI: Soft, Nontender, Nondistended and Normal Bowel Sounds; Negative Organomegaly
Rectal: Deferred by Provider
Musculoskeletal: No Clubbing, No Cyanosis and No Edema
Skin: Negative Rash
Neuro: Awake
Psych: Calm
--- NOTE | 2024-12-03 16:37 | PTCARENOTE ---
Provider at bedside around 1430 to administer TPA and clamped chest tube. This nurse was advised to un-clamp tube around 1630. Tube was unclamped and a moderate amount of yellow output flowed from tube. Will document amount at end of shift. Plan of
care ongoing.
[2024-12-03] MEDS: LOVENOX 40 MG SC (17:05)
[2024-12-03] MEDS: STERILE WATER FOR INJECTION 10 ML IV (17:05)
[2024-12-03] MEDS: ROCEPHIN 1000 MG IV (17:05)
[2024-12-03] MEDS: TORADOL 15 MG IV (18:53)
[2024-12-03] MEDS: REMOVE LIDOCAINE PATCH 2 PATCH REMOVE (19:38)
[2024-12-03 23:00] VITALS: BP 128/70
[2024-12-04] MEDS: ROXICODONE 5 MG PO ×3 (06:13→21:12)
[2024-12-04 07:25] LABS: Blood Urea Nitrogen 25 mg/dl (9-20); Calcium 8.1 mg/dl (8.4-10.2); Carbon Dioxide 25 mmol/L (22-30); Chloride 102 mmol/L (98-107); Estimated Creatinine Clearance 40 ml/min; Glucose 119 mg/dl (70-99); Potassium 5.0 mmol/L (3.5-5.1); Sodium 133 mmol/L (135-145); eGFR 53.84
[2024-12-04 07:32] LABS: Hematocrit 35.9 % (39.0-52.0); Hemoglobin 11.7 g/dL (13.0-18.0); Mean Corp Hgb Conc. 32.6 g/dL (33.0-37.0); Mean Corpuscular Volume 84.1 fL (80.0-94.0); Nucleated Red Blood Cells % 0 % (-); Platelet Count 499 10^3/uL (130-400); Red Cell Dist. Width 13.4 % (11.5-14.5)
[2024-12-04] MEDS: TESSALON PERLES 100 MG PO ×2 (08:28→21:05)
[2024-12-04] MEDS: TYLENOL 1000 MG PO ×3 (08:28→21:42)
[2024-12-04] MEDS: LIDOCAINE 4% PATCH 2 PATCH TOPICAL (08:29)
--- NOTE | 2024-12-04 09:21 | W.PN.PUL3 ---
Today's Communication / Plan
-
Lytics applied 12/03, >1L output overnight
CT reviewed-small effusion with consolidation noted
Observation of output next 24 hours to eval for possible 2nd dose
Assessment
-
Patient is an 84-year-old male with history of kidney cancer status post left nephrectomy, radiculopathy/chronic back pain, presenting to ER 11/23/24 with right upper flank pain, admitted for possible infection. Chest x-ray demonstrating right
sided infiltrate, suspicious for pneumonia. UA was negative on admission. On repeat chest x-rays, right sided pleural effusion had progressed into loculated appearance. Evaluated for thoracentesis on 11/27 but could not be amenable for sampling
due to a small fluid size. Underwent CT showing moderate size loculated pleural effusion, enlarging. He provides no additional History/ROS due to dementia. We are consulted for eval 11/30/24.
Pneumonia, right lower lobe suspect aspiration
Pleural effusion, likely empyema
Right upper flank pain
Fever/leukocytosis
Acute kidney injury
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
Chronic back pain with radiculopathy
Dementia
Plan
No oxygen was needed on admission, currently saturating >90% on RA
Prior history of lung disease is not noted but he was a former smoker about 40 years ago
Suspect patient has pna, possible due to aspiration given his dementia
CXR/CT obtained indicating enlarged loculated effusion, evaluated by IR on 11/27 but insufficient fluid at that time
IR consult, s/p chest tube 12/02/24
Labs reviewed: pH 6.84, WBC 4144, Glu <30, TP 4.2, LDH 1265--indicated exudate/empyema noted
Can trial lytic therapy today as drainage has decreased over the past 24 hours--applied 12/03 by IR
>1L output overnight
CT scan planning for a.m.--reviewed/some small effusion noted, consolidated area also noted
Can observe further output in next 24 hours with plan for another trial of lytics if indicated over weekend
ProBNP not obtained on admission, no history of cardiac disease
Prior ECHO results are reviewed indicating normal function in 2012
Not likely CHF related
Smoking history noted--former smoker, quit >40 years ago
No prior PFT for review
Speech therapy evaluation may be beneficial to r/o aspiration
VSE 11/27 noting mild pharyngeal dysphagia
He is placed on a modified diet
Speech following
RUE Cellulitis noted, on IV abx
SHALA noted, peak 1.4--trended down
Follow daily weights/daily BMPs
Reviewed plan of care with primary team and family at bedside
Diagnostic Data
Chest X-Ray:
CT Scan: CHEST 11/30/24- Moderate loculated slightly high attenuation right pleural effusion with extension of small to moderate volume fluid into the right minor fissure and accompanying right lower lobe consolidation extending to the right hilum,
overall markedly limited without intravenous contrast. Malignancy in the right lower lobe cannot be excluded. Tiny left pleural effusion with accompanying left lower lobe opacification most likely representing subsegmental atelectasis. Predominantly
fluid density in the subcarinal mediastinum, indeterminate. Coronary artery calcifications.
US 11/27/24- Trace right pleural effusion. Amount of fluid present not sufficient for safe thoracentesis.
Echo: Stress 2011- Echocardiographic images are good. Baseline EF is 55% without regional wall motion abnormalities. With exercise, there is augmentation of all regional wall motion the EF of 70%. This a normal echocardiographic response to
exercise.
PFT's:
Reports and relevant images were personally reviewed.
Total time spent on this consultation __51__ minutes which includes review of history, physical exam, medications, laboratory data, personal review of imaging, extensive review of outpatient records, discussion with care team and respiratory therapy.
Subjective Data
-
Date of Service:
Date of Service: December 04, 2024
Chief Complaint: Pulmonary Follow Up
Subjective:
No new complaints, stable on RA
>1L output from lytics
Objective Data
Data Reviewed
Vital Signs / I&O / Oxygen:
Vital Signs
Temp Pulse Resp BP Pulse Ox
98.2 F 84 22 128/70 96
12/03/24 23:00 12/03/24 23:00 12/03/24 23:00 12/03/24 23:00 12/04/24 08:50
Intake and Output
12/03/24 12/04/24 12/05/24
06:59 06:59 06:59
Intake Total 655 / 655 1920 / 1920
Output Total 895 / 895 2210 / 2210
Balance -240 / -240 -290 / -290
SaO2 96
Physical Exam
General: Comfortable and Other (NAD)
HEENT: Normocephalic, Anicteric and Moist Mucous Membranes
Cardiovascular: S1-S2 and Regular Rhythm
Respiratory: Clear, Non-Labored Respirations and Chest Tube
GI: Soft, Non Distended and Non Tender
Neurology: Awake, Alert, No Motor Deficits and Other (confused)
Skin: Warm, Dry and Good Color
Labs/Micro/Reports
Lab Data
12/04/24 06:36
12/04/24 06:36
Microbiology
12/02/24 15:03 Pleural Fluid Body Fluid Culture - Preliminary
No Growth After 48 Hours
12/02/24 15:03 Pleural Fluid Gram Stain - Preliminary
[2024-12-04 09:23] VITALS: BP 127/64; PULSE 78; O2SAT 93
--- NOTE | 2024-12-04 11:34 | CM ---
Chest tube remains.
PT OT indicate SNF.
Referral for [facility] Fitz[facility] in care port . Check for bed day of dc.
Update sent to [facility]
PLAN [facility] if day available
[2024-12-04] MEDS: ZOSYN 50 IV ×2 (13:18→21:03)
[2024-12-04 16:43] VITALS: BP 105/55
[2024-12-04] MEDS: LOVENOX 40 MG SC (17:02)
--- NOTE | 2024-12-04 17:34 | W.PN.HOSP.TC ---
Today's Communication/Plan
-
Significant output close to 1 L post tPA lysis
Follow-up CT scan on 12/04 with improved right pleural effusion and infiltrate
Noted with rising white count of 22K the patient appeared to be nontoxic. Blood cultures negative to date. Will broaden antibiotic spectrum from ceftriaxone to Zosyn on 12/04
Follow-up chest x-ray
Assessment / Plan
Assessment / Plan
HPI: 84-year-old male with a past medical history of left kidney cancer status post left nephrectomy and chronic back pain with radiculopathy presents with a 2-day history of right upper flank pain. Patient reports that there is dull pain
constantly, with sharpness that waxes and wanes. He denies nausea, vomiting. No constipation, no diarrhea. He has been taking Tylenol and Advil for his pain. His pain is unassociated with food. His reports that he has been working in his
yard quite often, using a [employer] My. He denies chest pain, denies shortness of breath. No fever, no dysuria, no black or bloody stools.
Right lower back/upper flank pain
Pneumonia, right lower lobe infiltrate with possible parapneumonic pleural effusion
Acute kidney injury
TME, hyperactive daily
Labile hypertension
Mild dysphagia
Conditions prior to admission
Solitary kidney, status post left nephrectomy.
Chronic back pain.
Dementia senile type
Plan
Pneumonia, right lower lobe infiltrate suspect community-acquired, although reasonable risk for aspiration given age and cognitive impairment
Noted febrile within 24 hours postadmission with now rising white count.
Urinalysis negative on admission.
Imaging with 3 mm nonobstructive right-sided kidney stone.
Imaging also suggestive of a right small pleural effusion with adjacent consolidation, reasonable concern for right basilar pneumonia.
Chest x-ray 2 views with right lower lobe consolidation and effusion
Blood cultures negative to date
Repeat urine cultures negative
Chest ultrasound with possibly small, although loculated pleural effusion
Loculated pleural effusion not amenable to thoracentesis on 11/26.
Follow-up CT scan on 11/30 with right lower lobe process and loculated pleural effusion.
Repeat ultrasound on 12/01 with worsening right pleural effusion possible loculation
Status post right chest tube placement by [facility] on 12/02. Noted for pH 6.84, WBC 4144, LDH 1265. Findings consistent with empyema by pH
12/03 chest tube output around 100 over 24 hours. tPA lysis
Significant output close to 1 L post tPA lysis
Follow-up CT scan on 12/04 with improved right pleural effusion and infiltrate
Noted with rising white count of 22K the patient appeared to be nontoxic. Blood cultures negative to date. Will broaden antibiotic spectrum from ceftriaxone to Zosyn on 12/04
Follow-up chest x-ray in the morning
Follow-up right chest output
Acute kidney injury
Solitary kidney.
Avoid nephrotoxins.
Creatinine improving at 1.2
Observe off IV fluids.
Bladder scan for retention
Chronic back pain.
Continue symptomatic control including Tylenol, Flexeril, oxycodone for severe pain. Avoid NSAIDs with SHALA
Hyperactive delirium
Underlying cognitive impairment
Suspect dementia senile type
TSH, B12 is in normal limits.
Status post Seroquel
Status post Risperdal changed to as needed
Mental status improved
Has been off restraints
Labile hypertension
Monitor blood pressure closely. If persistently elevated will need to be started on medication.
Blood pressure AM 129/80
Mild dysphagia
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
Status post video swallow evaluation
Per speech continue with IDDS6 with mildly thick liquids
DVT prophylaxis with Lovenox
Full code
PT/OT-SNF.
Anticipated Discharge: > 48 hours
Subjective/Interval History
-
Date of Service: December 04, 2024
Objective Data
-
Labs:
Laboratory Results
12/04/24
06:36
WBC 22.6 H
Hgb 11.7 L
Hct 35.9 L
Plt Count 499 H
Sodium 133 L
Potassium 5.0
Chloride 102
Carbon Dioxide 25
BUN 25 H
Creatinine 1.3
Glucose 119 H
Calcium 8.1 L
Vital Signs:
Vital Signs
Temp Pulse Resp BP Pulse Ox
98.2 F 78 17 105/55 98
12/04/24 16:43 12/04/24 16:43 12/04/24 16:43 12/04/24 16:43 12/04/24 16:43
I&O
12/03/24 12/04/24 12/05/24
06:59 06:59 06:59
Intake Total 655 / 655 1920 / 1920
Output Total 895 / 895 2210 / 2210
Balance -240 / -240 -290 / -290
Physical Exam
-
General: Well Developed and No Apparent Distress
HEENT: Normocephalic, Atraumatic and Moist Mucous Membranes
Respiratory: Non Labored Respirations and Chest Tubes (Right chest tube in place with serosanguineous fluid); Negative Accessory Resp Muscle Use
Cardiac: Regular Rhythm and S1/S2; Negative Murmur, Rub or Gallop
GI: Soft, Nontender, Nondistended and Normal Bowel Sounds; Negative Organomegaly
Rectal: Deferred by Provider
Musculoskeletal: No Clubbing, No Cyanosis and No Edema
Skin: Negative Rash
Neuro: Awake
Psych: Calm
[2024-12-04] MEDS: REMOVE LIDOCAINE PATCH 2 PATCH REMOVE (20:52)
[2024-12-04 23:00] VITALS: BP 112/55
[2024-12-05] MEDS: ZOSYN 50 IV ×4 (02:03→20:50)
[2024-12-05] MEDS: ROXICODONE 5 MG PO ×3 (06:35→22:30)
[2024-12-05 07:00] VITALS: BP 108/58
[2024-12-05 08:23] LABS: Hematocrit 34.9 % (39.0-52.0); Hemoglobin 11.2 g/dL (13.0-18.0); Mean Corp Hgb Conc. 32.1 g/dL (33.0-37.0); Mean Corpuscular Volume 85.3 fL (80.0-94.0); Nucleated Red Blood Cells % 0 % (-); Platelet Count 533 10^3/uL (130-400); Red Cell Dist. Width 13.4 % (11.5-14.5)
[2024-12-05] MEDS: LIDOCAINE 4% PATCH 2 PATCH TOPICAL (08:43)
[2024-12-05] MEDS: FLUSH (NSS) 1 FLUSH IV (08:44)
[2024-12-05] MEDS: TESSALON PERLES 100 MG PO ×2 (08:44→20:50)
[2024-12-05] MEDS: TYLENOL 1000 MG PO ×3 (08:44→21:16)
[2024-12-05 09:00] LABS: Blood Urea Nitrogen 33 mg/dl (9-20); Calcium 8.0 mg/dl (8.4-10.2); Carbon Dioxide 26 mmol/L (22-30); Chloride 100 mmol/L (98-107); Estimated Creatinine Clearance 35 ml/min; Glucose 107 mg/dl (70-99); Potassium 5.0 mmol/L (3.5-5.1); Sodium 134 mmol/L (135-145); eGFR 45.34
--- NOTE | 2024-12-05 13:01 | W.PN.HOSP.TC ---
Today's Communication/Plan
-
CT management
Abx
Assessment / Plan
Assessment / Plan
HPI: 84-year-old male with a past medical history of left kidney cancer status post left nephrectomy and chronic back pain with radiculopathy presents with a 2-day history of right upper flank pain. Patient reports that there is dull pain
constantly, with sharpness that waxes and wanes. He denies nausea, vomiting. No constipation, no diarrhea. He has been taking Tylenol and Advil for his pain. His pain is unassociated with food. His reports that he has been working in his
yard quite often, using a weed My. He denies chest pain, denies shortness of breath. No fever, no dysuria, no black or bloody stools.
Right lower back/upper flank pain
Pneumonia, right lower lobe infiltrate with possible parapneumonic pleural effusion
Acute kidney injury
TME, hyperactive daily
Labile hypertension
Mild dysphagia
Conditions prior to admission
Solitary kidney, status post left nephrectomy.
Chronic back pain.
Dementia senile type
Plan
Pneumonia, right lower lobe infiltrate suspect community-acquired, although reasonable risk for aspiration given age and cognitive impairment
Noted febrile within 24 hours postadmission with now rising white count.
Urinalysis negative on admission.
Imaging with 3 mm nonobstructive right-sided kidney stone.
Imaging also suggestive of a right small pleural effusion with adjacent consolidation, reasonable concern for right basilar pneumonia.
Chest x-ray 2 views with right lower lobe consolidation and effusion
Blood cultures negative to date
Repeat urine cultures negative
Chest ultrasound with possibly small, although loculated pleural effusion
Loculated pleural effusion not amenable to thoracentesis on 11/26.
Follow-up CT scan on 11/30 with right lower lobe process and loculated pleural effusion.
Repeat ultrasound on 12/01 with worsening right pleural effusion possible loculation
Status post right chest tube placement by [facility] on 12/02. Noted for pH 6.84, WBC 4144, LDH 1265. Findings consistent with empyema by pH
12/03 chest tube output around 100 over 24 hours. tPA lysis
Significant output close to 1 L post tPA lysis
Follow-up CT scan on 12/04 with improved right pleural effusion and infiltrate
Noted with rising white count of 22K the patient appeared to be nontoxic. Blood cultures negative to date. Will broaden antibiotic spectrum from ceftriaxone to Zosyn on 12/04
Follow-up chest x-ray in the morning
Follow-up right chest output
Acute kidney injury
Solitary kidney.
Avoid nephrotoxins.
Creatinine improving at 1.2
Observe off IV fluids.
Bladder scan for retention
Chronic back pain.
Continue symptomatic control including Tylenol, Flexeril, oxycodone for severe pain. Avoid NSAIDs with SHALA
Hyperactive delirium
Underlying cognitive impairment
Suspect dementia senile type
TSH, B12 is in normal limits.
Status post Seroquel
Status post Risperdal changed to as needed
Mental status improved
Has been off restraints
Labile hypertension
Monitor blood pressure closely. If persistently elevated will need to be started on medication.
Blood pressure AM 129/80
Mild dysphagia
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
Status post video swallow evaluation
Per speech continue with IDDS6 with mildly thick liquids
DVT prophylaxis with Lovenox
Full code
PT/OT-SNF.
12/06 - Continue Chest tube management; abx; monitor WBC, Na
Anticipated Discharge: > 48 hours
Subjective/Interval History
-
Date of Service: December 05, 2024
no acute events
Objective Data
-
Labs:
Laboratory Results
12/05/24
06:51
WBC 16.6 H
Hgb 11.2 L
Hct 34.9 L
Plt Count 533 H
Sodium 134 L
Potassium 5.0
Chloride 100
Carbon Dioxide 26
BUN 33 H
Creatinine 1.5 H
Glucose 107 H
Calcium 8.0 L
Vital Signs:
Vital Signs
Temp Pulse Resp BP Pulse Ox
98.3 F 86 16 108/58 94
12/05/24 11:03 12/05/24 07:00 12/05/24 07:00 12/05/24 07:00 12/05/24 07:00
I&O
12/04/24 12/05/24 12/06/24
06:59 06:59 06:59
Intake Total 1920 / 1920 1320 / 1320 240 / 240
Output Total 2210 / 2210 335 / 335 650 / 650
Balance -290 / -290 985 / 985 -410 / -410
Review of Systems
-
History Source: Patient
All other systems: Reviewed and negative
Physical Exam
-
General: Well Developed and No Apparent Distress
HEENT: Normocephalic, Atraumatic and Moist Mucous Membranes
Respiratory: Non Labored Respirations and Chest Tubes (Right chest tube in place with serosanguineous fluid); Negative Accessory Resp Muscle Use
Cardiac: Regular Rhythm and S1/S2; Negative Murmur, Rub or Gallop
GI: Soft, Nontender, Nondistended and Normal Bowel Sounds; Negative Organomegaly
Rectal: Deferred by Provider
Musculoskeletal: No Clubbing, No Cyanosis and No Edema
Skin: Negative Rash
Neuro: Awake
Psych: Calm
[2024-12-05] MEDS: FLUSH (NSS) 2 FLUSH IV (13:15)
--- NOTE | 2024-12-05 15:45 | W.PN.PUL3 ---
Today's Communication / Plan
-
- IRAD consult for a second dose of tPA/DNase, intrapleurally
- Follow-up chest x-ray in a.m.
Assessment
-
Patient is an 84-year-old male with history of kidney cancer status post left nephrectomy, radiculopathy/chronic back pain, presenting to ER 11/23/24 with right upper flank pain, admitted for possible infection. Chest x-ray demonstrating right
sided infiltrate, suspicious for pneumonia. UA was negative on admission. On repeat chest x-rays, right sided pleural effusion had progressed into loculated appearance. Evaluated for thoracentesis on 11/27 but could not be amenable for sampling
due to a small fluid size. Underwent CT showing moderate size loculated pleural effusion, enlarging. He provides no additional History/ROS due to dementia. We are consulted for eval 11/30/24.
Pneumonia, right lower lobe suspect aspiration
Pleural effusion, likely empyema, cultures however staying negative so far
Right upper flank pain
Fever/leukocytosis
Acute kidney injury
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
Chronic back pain with radiculopathy
Dementia
Plan
No oxygen was needed on admission, currently saturating >90% on RA
Prior history of lung disease is not noted but he was a former smoker about 40 years ago
Suspect patient has pna, possible due to aspiration given his dementia
CXR/CT obtained indicating enlarged loculated effusion, evaluated by IR on 11/27 but insufficient fluid at that time
IR consult, s/p chest tube 12/02/24
Labs reviewed: pH 6.84, WBC 4144, Glu <30, TP 4.2, LDH 1265--indicated exudate/empyema noted
135 mL over last 24 hours noted in pleural drainage. Chest CT reviewed. Trial of a second dose of tPA/DNase intrapleurally. If suboptimal drainage, patient might need a second chest tube targeting the residual collection.
Smoking history noted--former smoker, quit >40 years ago
No prior PFT for review
Speech therapy evaluation may be beneficial to r/o aspiration
VSE 11/27 noting mild pharyngeal dysphagia
He is placed on a modified diet
Speech following
RUE Cellulitis noted, on IV abx
Diagnostic Data
Chest X-Ray:
CT Scan: CHEST 11/30/24- Moderate loculated slightly high attenuation right pleural effusion with extension of small to moderate volume fluid into the right minor fissure and accompanying right lower lobe consolidation extending to the right hilum,
overall markedly limited without intravenous contrast. Malignancy in the right lower lobe cannot be excluded. Tiny left pleural effusion with accompanying left lower lobe opacification most likely representing subsegmental atelectasis. Predominantly
fluid density in the subcarinal mediastinum, indeterminate. Coronary artery calcifications.
US 11/27/24- Trace right pleural effusion. Amount of fluid present not sufficient for safe thoracentesis.
Echo: Stress 2011- Echocardiographic images are good. Baseline EF is 55% without regional wall motion abnormalities. With exercise, there is augmentation of all regional wall motion the EF of 70%. This a normal echocardiographic response to
exercise.
PFT's:
Reports and relevant images were personally reviewed.
Total time spent on this consultation __41__ minutes which includes review of history, physical exam, medications, laboratory data, personal review of imaging, extensive review of outpatient records, discussion with care team and respiratory therapy.
Subjective Data
-
Date of Service:
Date of Service: December 05, 2024
Chief Complaint: Pulmonary Follow Up
Subjective:
Patient comfortably lying in bed, currently on room air.
Review of Systems
Genitourinary: Other (All 14 systems reviewed and negative except as stated above in the history of present illness.)
Objective Data
Data Reviewed
Vital Signs / I&O / Oxygen:
Vital Signs
Temp Pulse Resp BP Pulse Ox
98.3 F 86 16 108/58 94
12/05/24 11:03 12/05/24 07:00 12/05/24 07:00 12/05/24 07:00 12/05/24 07:00
Intake and Output
12/04/24 12/05/24 12/06/24
06:59 06:59 06:59
Intake Total 1920 / 1920 1320 / 1320 240 / 240
Output Total 2210 / 2210 335 / 335 950 / 950
Balance -290 / -290 985 / 985 -710 / -710
SaO2 94
Physical Exam
General: Comfortable and Other (NAD)
HEENT: Normocephalic, Anicteric and Moist Mucous Membranes
Cardiovascular: S1-S2 and Regular Rhythm
Respiratory: Clear, Non-Labored Respirations and Chest Tube
GI: Soft, Non Distended and Non Tender
Neurology: Awake and Alert
Skin: Warm and Dry
Labs/Micro/Reports
Lab Data
12/05/24 06:51
12/05/24 06:51
Microbiology
12/02/24 15:03 Pleural Fluid Body Fluid Culture - Final
No Growth After 72 Hours
12/02/24 15:03 Pleural Fluid Gram Stain - Final
[2024-12-05 15:54] VITALS: BP 110/55
--- NOTE | 2024-12-05 16:34 | PN.IRAD.UPD ---
Update Note - IRAD
- -
went bedside at 1630 to instill TPA/Dornase into patient's right sided chest tube. Clamped tube, no complaints from patient. Tube is to be unclamped and back to suction at 1830.
--- NOTE | 2024-12-05 17:13 | W.PN.UPDATE ---
Update Note
Progress Note Update
- Another dose of tPA/dornase given through right chest tube
- Chest tube is clamped - please un-clamp at 1700, return to wall suction
[2024-12-05] MEDS: REMOVE LIDOCAINE PATCH 2 PATCH REMOVE (20:49)
[2024-12-05 23:04] VITALS: BP 116/63
[2024-12-06] MEDS: ZOSYN 50 IV ×3 (02:57→16:09)
[2024-12-06] MEDS: ROXICODONE 5 MG PO (04:49)
[2024-12-06 07:22] VITALS: BP 131/71
[2024-12-06 07:25] LABS: Hematocrit 35.0 % (39.0-52.0); Hemoglobin 11.4 g/dL (13.0-18.0); Mean Corp Hgb Conc. 32.6 g/dL (33.0-37.0); Mean Corpuscular Volume 85.2 fL (80.0-94.0); Platelet Count 588 10^3/uL (130-400); Red Cell Dist. Width 13.3 % (11.5-14.5)
[2024-12-06 08:03] LABS: ALT (SGPT) 70 U/L (0-50); AST (SGOT) 35 U/L (17-59); Albumin 2.7 g/dl (3.5-5.0); Alkaline Phosphatase 384 U/L (38-126); Blood Urea Nitrogen 27 mg/dl (9-20); Calcium 8.4 mg/dl (8.4-10.2); Carbon Dioxide 28 mmol/L (22-30); Chloride 101 mmol/L (98-107); Estimated Creatinine Clearance 35 ml/min; Glucose 105 mg/dl (70-99); Potassium 5.4 mmol/L (3.5-5.1); Sodium 132 mmol/L (135-145); Total Protein 5.2 g/dl (6.3-8.2); eGFR 45.34
[2024-12-06] MEDS: LOKELMA 10 GRAM PO (09:25)
[2024-12-06] MEDS: LIDOCAINE 4% PATCH 2 PATCH TOPICAL (09:26)
[2024-12-06] MEDS: TESSALON PERLES 100 MG PO ×2 (09:26→21:12)
[2024-12-06] MEDS: TYLENOL 1000 MG PO ×3 (09:26→21:12)
[2024-12-06] MEDS: LR 500 IV (09:28)
--- NOTE | 2024-12-06 12:42 | W.PN.HOSP.TC ---
Today's Communication/Plan
-
Chest tube management
LR bolus
Kayexalate
Monitor WBC/fever trend
Assessment / Plan
Assessment / Plan
HPI: 84-year-old male with a past medical history of left kidney cancer status post left nephrectomy and chronic back pain with radiculopathy presents with a 2-day history of right upper flank pain. Patient reports that there is dull pain
constantly, with sharpness that waxes and wanes. He denies nausea, vomiting. No constipation, no diarrhea. He has been taking Tylenol and Advil for his pain. His pain is unassociated with food. His reports that he has been working in his
yard quite often, using a weed My. He denies chest pain, denies shortness of breath. No fever, no dysuria, no black or bloody stools.
Right lower back/upper flank pain
Pneumonia, right lower lobe infiltrate with possible parapneumonic pleural effusion
Acute kidney injury
TME, hyperactive daily
Labile hypertension
Mild dysphagia
Conditions prior to admission
Solitary kidney, status post left nephrectomy.
Chronic back pain.
Dementia senile type
Plan
Pneumonia, right lower lobe infiltrate suspect community-acquired, although reasonable risk for aspiration given age and cognitive impairment
Noted febrile within 24 hours postadmission with now rising white count.
Urinalysis negative on admission.
Imaging with 3 mm nonobstructive right-sided kidney stone.
Imaging also suggestive of a right small pleural effusion with adjacent consolidation, reasonable concern for right basilar pneumonia.
Chest x-ray 2 views with right lower lobe consolidation and effusion
Blood cultures negative to date
Repeat urine cultures negative
Chest ultrasound with possibly small, although loculated pleural effusion
Loculated pleural effusion not amenable to thoracentesis on 11/26.
Follow-up CT scan on 11/30 with right lower lobe process and loculated pleural effusion.
Repeat ultrasound on 12/01 with worsening right pleural effusion possible loculation
Status post right chest tube placement by [facility] on 12/02. Noted for pH 6.84, WBC 4144, LDH 1265. Findings consistent with empyema by pH
12/03 chest tube output around 100 over 24 hours. tPA lysis
Significant output close to 1 L post tPA lysis
Follow-up CT scan on 12/04 with improved right pleural effusion and infiltrate
Noted with rising white count of 22K the patient appeared to be nontoxic. Blood cultures negative to date. Will broaden antibiotic spectrum from ceftriaxone to Zosyn on 12/04
Follow-up chest x-ray in the morning
Follow-up right chest output
Acute kidney injury
Solitary kidney.
Avoid nephrotoxins.
Creatinine improving at 1.2
Observe off IV fluids.
Bladder scan for retention
Chronic back pain.
Continue symptomatic control including Tylenol, Flexeril, oxycodone for severe pain. Avoid NSAIDs with SHALA
Hyperactive delirium
Underlying cognitive impairment
Suspect dementia senile type
TSH, B12 is in normal limits.
Status post Seroquel
Status post Risperdal changed to as needed
Mental status improved
Has been off restraints
Labile hypertension
Monitor blood pressure closely. If persistently elevated will need to be started on medication.
Blood pressure AM 129/80
Mild dysphagia
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
Status post video swallow evaluation
Per speech continue with IDDS6 with mildly thick liquids
DVT prophylaxis with Lovenox
Full code
PT/OT-SNF.
12/06 - Continue Chest tube management; abx; monitor WBC, Na
12/07: tPA/Dornase on 12/05 - with good output; Continue CT care as per pulm/IR; Kayexalate for hyperkalemia. LR bolus -monitor renal function
Anticipated Discharge: 24 - 48 hours
Subjective/Interval History
-
Date of Service: December 06, 2024
no acute events
Objective Data
-
Labs:
Laboratory Results
12/06/24
06:21
WBC 18.5 H
Hgb 11.4 L
Hct 35.0 L
Plt Count 588 H
Sodium 132 L
Potassium 5.4 H
Chloride 101
Carbon Dioxide 28
BUN 27 H
Creatinine 1.5 H
Glucose 105 H
Calcium 8.4
Total Bilirubin 0.8
AST 35
ALT 70 H
Alkaline Phosphatase 384 H
Vital Signs:
Vital Signs
Temp Pulse Resp BP Pulse Ox
99.0 F 99 18 131/71 97
12/06/24 07:22 12/06/24 07:22 12/06/24 07:22 12/06/24 07:22 12/06/24 07:22
I&O
12/05/24 12/06/24 12/07/24
06:59 06:59 06:59
Intake Total 1320 / 1320 820 / 820 100 / 100
Output Total 335 / 335 2295 / 2295 305 / 305
Balance 985 / 985 -1475 / -1475 -205 / -205
Review of Systems
-
History Source: Patient
All other systems: Reviewed and negative
Physical Exam
-
General: Well Developed and No Apparent Distress
HEENT: Normocephalic, Atraumatic and Moist Mucous Membranes
Respiratory: Non Labored Respirations and Chest Tubes (Right chest tube in place with serosanguineous fluid); Negative Accessory Resp Muscle Use
Cardiac: Regular Rhythm and S1/S2; Negative Murmur, Rub or Gallop
GI: Soft, Nontender, Nondistended and Normal Bowel Sounds; Negative Organomegaly
Rectal: Deferred by Provider
Musculoskeletal: No Clubbing, No Cyanosis and No Edema
Skin: Negative Rash
Neuro: Awake
Psych: Calm
Data Reviewed
-
Total Time Spent with Patient (in minutes): 55
Diagnostic Radiology: Report Reviewed by me
CT Scan: Report Reviewed by me
Ultrasound: Report Reviewed by me
Labs: Labs Reviewed by me
[2024-12-06 14:52] VITALS: BP 134/73; PULSE 83; O2SAT 96
[2024-12-06 15:33] VITALS: BP 121/57
--- NOTE | 2024-12-06 18:33 | W.PN.PUL3 ---
Today's Communication / Plan
-
- Follow-up chest x-ray in a.m.
- Discontinue Zosyn, switch to IV Unasyn
Assessment
-
Patient is an 84-year-old male with history of kidney cancer status post left nephrectomy, radiculopathy/chronic back pain, presenting to ER 11/23/24 with right upper flank pain, admitted for possible infection. Chest x-ray demonstrating right
sided infiltrate, suspicious for pneumonia. UA was negative on admission. On repeat chest x-rays, right sided pleural effusion had progressed into loculated appearance. Evaluated for thoracentesis on 11/27 but could not be amenable for sampling
due to a small fluid size. Underwent CT showing moderate size loculated pleural effusion, enlarging. He provides no additional History/ROS due to dementia. We are consulted for eval 11/30/24.
Pneumonia, right lower lobe suspect aspiration
Pleural effusion, likely empyema, cultures however staying negative so far
Right upper flank pain
Fever/leukocytosis
Acute kidney injury
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
Chronic back pain with radiculopathy
Dementia
Plan
No oxygen was needed on admission, currently saturating >90% on RA
Prior history of lung disease is not noted but he was a former smoker about 40 years ago
Suspect patient has pna, possible due to aspiration given his dementia
CXR/CT obtained indicating enlarged loculated effusion, evaluated by IR on 11/27 but insufficient fluid at that time
IR consult, s/p chest tube 12/02/24
Labs reviewed: pH 6.84, WBC 4144, Glu <30, TP 4.2, LDH 1265--indicated exudate/empyema noted
12/06. Second dose of intrapleural tPA/DNase given on 12/05. 600 additional pleural drainage since along with improving chest x-ray. Continue chest tube to suction, follow-up chest x-ray in a.m. if chest x-ray continue to improve and chest tube
output continues to decrease, can give a clamp trial with eventual removal versus follow-up CT to ensure complete resolution
Cultures have stayed negative, DC Zosyn and start Unasyn instead.
Smoking history noted--former smoker, quit >40 years ago
No prior PFT for review
Speech therapy evaluation may be beneficial to r/o aspiration
VSE 11/27 noting mild pharyngeal dysphagia
He is placed on a modified diet
Speech following
RUE Cellulitis noted, on IV abx
Diagnostic Data
Chest X-Ray:
CT Scan: CHEST 11/30/24- Moderate loculated slightly high attenuation right pleural effusion with extension of small to moderate volume fluid into the right minor fissure and accompanying right lower lobe consolidation extending to the right hilum,
overall markedly limited without intravenous contrast. Malignancy in the right lower lobe cannot be excluded. Tiny left pleural effusion with accompanying left lower lobe opacification most likely representing subsegmental atelectasis. Predominantly
fluid density in the subcarinal mediastinum, indeterminate. Coronary artery calcifications.
US 11/27/24- Trace right pleural effusion. Amount of fluid present not sufficient for safe thoracentesis.
Echo: Stress 2011- Echocardiographic images are good. Baseline EF is 55% without regional wall motion abnormalities. With exercise, there is augmentation of all regional wall motion the EF of 70%. This a normal echocardiographic response to
exercise.
PFT's:
Reports and relevant images were personally reviewed.
Total time spent on this consultation __41__ minutes which includes review of history, physical exam, medications, laboratory data, personal review of imaging, extensive review of outpatient records, discussion with care team and respiratory therapy.
Subjective Data
-
Date of Service:
Date of Service: December 06, 2024
Chief Complaint: Pulmonary Follow Up
Subjective:
Patient comfortably sitting in bed in no acute distress
Review of Systems
Genitourinary: Other (All 14 systems reviewed and negative except as stated above in the history of present illness.)
Objective Data
Data Reviewed
Vital Signs / I&O / Oxygen:
Vital Signs
Temp Pulse Resp BP Pulse Ox
98.4 F 82 17 121/57 96
12/06/24 15:33 12/06/24 15:33 12/06/24 15:33 12/06/24 15:33 12/06/24 15:33
Intake and Output
12/05/24 12/06/24 12/07/24
06:59 06:59 06:59
Intake Total 1320 / 1320 820 / 820 460 / 460
Output Total 335 / 335 2295 / 2295 780 / 780
Balance 985 / 985 -1475 / -1475 -320 / -320
SaO2 96
Physical Exam
General: Comfortable and Other (NAD)
HEENT: Normocephalic, Anicteric and Moist Mucous Membranes
Cardiovascular: S1-S2 and Regular Rhythm
Respiratory: Clear, Non-Labored Respirations and Chest Tube
GI: Soft, Non Distended and Non Tender
Neurology: Awake and Alert
Skin: Warm and Dry
Labs/Micro/Reports
Lab Data
12/06/24 06:21
12/06/24 06:21
Microbiology
12/02/24 15:03 Pleural Fluid Body Fluid Culture - Final
No Growth After 72 Hours
12/02/24 15:03 Pleural Fluid Gram Stain - Final
[2024-12-06] MEDS: REMOVE LIDOCAINE PATCH 2 PATCH REMOVE (21:12)
[2024-12-06] MEDS: UNASYN IV (21:12)
[2024-12-06 23:31] VITALS: BP 118/61
[2024-12-07] MEDS: ROXICODONE 5 MG PO ×3 (00:27→15:27)
[2024-12-07] MEDS: UNASYN IV ×4 (03:01→20:29)
[2024-12-07] MEDS: TYLENOL 650 MG PO (03:03)
[2024-12-07 06:16] LABS: Hematocrit 34.8 % (39.0-52.0); Hemoglobin 11.1 g/dL (13.0-18.0); Mean Corp Hgb Conc. 31.9 g/dL (33.0-37.0); Mean Corpuscular Volume 84.1 fL (80.0-94.0); Platelet Count 564 10^3/uL (130-400); Red Cell Dist. Width 13.5 % (11.5-14.5)
[2024-12-07 06:56] VITALS: BP 134/68
[2024-12-07 07:00] LABS: ALT (SGPT) 93 U/L (0-50); AST (SGOT) 95 U/L (17-59); Albumin 2.8 g/dl (3.5-5.0); Alkaline Phosphatase 552 U/L (38-126); Blood Urea Nitrogen 27 mg/dl (9-20); Calcium 8.6 mg/dl (8.4-10.2); Carbon Dioxide 29 mmol/L (22-30); Chloride 102 mmol/L (98-107); Estimated Creatinine Clearance 35 ml/min; Glucose 110 mg/dl (70-99); Potassium 5.1 mmol/L (3.5-5.1); Sodium 136 mmol/L (135-145); Total Protein 5.3 g/dl (6.3-8.2); eGFR 45.34
[2024-12-07] MEDS: LIDOCAINE 4% PATCH 2 PATCH TOPICAL (09:04)
[2024-12-07] MEDS: TESSALON PERLES 100 MG PO ×2 (09:04→22:32)
[2024-12-07] MEDS: TYLENOL 1000 MG PO ×3 (09:04→22:32)
--- NOTE | 2024-12-07 13:52 | W.PN.PUL3 ---
Today's Communication / Plan
-
Maintain chest tube to suction
Repeat chest x-ray 12/08
If stable, will consider CT chest later in the p.m.
Possible discontinuation of chest tube in the next 36 to 48 hours
Updated at bedside. She had questions about Lyme disease. This will be deferred to primary service
Assessment
-
Patient is an 84-year-old male with history of kidney cancer status post left nephrectomy, radiculopathy/chronic back pain, presenting to ER 11/23/24 with right upper flank pain, admitted for possible infection. Chest x-ray demonstrating right
sided infiltrate, suspicious for pneumonia. UA was negative on admission. On repeat chest x-rays, right sided pleural effusion had progressed into loculated appearance. Evaluated for thoracentesis on 11/27 but could not be amenable for sampling
due to a small fluid size. Underwent CT showing moderate size loculated pleural effusion, enlarging. He provides no additional History/ROS due to dementia. We are consulted for eval 11/30/24.
Pneumonia, right lower lobe suspect aspiration
Pleural effusion, likely empyema, cultures however staying negative so far
Right upper flank pain
Fever/leukocytosis
Acute kidney injury
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
Chronic back pain with radiculopathy
Dementia
Plan
No oxygen was needed on admission, currently saturating >90% on RA
Prior history of lung disease is not noted but he was a former smoker about 40 years ago
Suspect patient has pna, possible due to aspiration given his dementia
CXR/CT obtained indicating enlarged loculated effusion, evaluated by IR on 11/27 but insufficient fluid at that time
IR consult, s/p chest tube 12/02/24
Labs reviewed: pH 6.84, WBC 4144, Glu <30, TP 4.2, LDH 1265--indicated exudate/empyema noted
12/06. Second dose of intrapleural tPA/DNase given on 12/05. 600 additional pleural drainage since along with improving chest x-ray. Additional 325 cc drained over last 24 hours. Chest x-ray 12/07 with slight improvement per my review. Continue
chest tube to suction, follow-up chest x-ray in a.m. if chest x-ray continue to improve and chest tube output continues to decrease, can give a clamp trial with eventual removal versus follow-up CT to ensure complete resolution
Cultures have stayed negative, DC Zosyn and start Unasyn instead.
Smoking history noted--former smoker, quit >40 years ago
No prior PFT for review
Speech therapy evaluation may be beneficial to r/o aspiration
VSE 11/27 noting mild pharyngeal dysphagia
He is placed on a modified diet
Speech following
RUE Cellulitis noted, on IV abx
at bedside had questions about possibly of Lyme disease.
I will defer any further testing to primary service as this is less suspected at this time
Diagnostic Data
Chest X-Ray:
CT Scan: CHEST 11/30/24- Moderate loculated slightly high attenuation right pleural effusion with extension of small to moderate volume fluid into the right minor fissure and accompanying right lower lobe consolidation extending to the right hilum,
overall markedly limited without intravenous contrast. Malignancy in the right lower lobe cannot be excluded. Tiny left pleural effusion with accompanying left lower lobe opacification most likely representing subsegmental atelectasis. Predominantly
fluid density in the subcarinal mediastinum, indeterminate. Coronary artery calcifications.
US 11/27/24- Trace right pleural effusion. Amount of fluid present not sufficient for safe thoracentesis.
Echo: Stress 2011- Echocardiographic images are good. Baseline EF is 55% without regional wall motion abnormalities. With exercise, there is augmentation of all regional wall motion the EF of 70%. This a normal echocardiographic response to
exercise.
PFT's:
Reports and relevant images were personally reviewed.
Total time spent on this consultation __41__ minutes which includes review of history, physical exam, medications, laboratory data, personal review of imaging, extensive review of outpatient records, discussion with care team and respiratory therapy.
Subjective Data
-
Date of Service:
Date of Service: December 07, 2024
Chief Complaint: Pulmonary Follow Up
Subjective:
Patient is without complaints except some mild chest type discomfort. at bedside. He denies significant shortness of breath, cough, nausea, abdominal pain. Just ate lunch without difficulty
Objective Data
Data Reviewed
Vital Signs / I&O / Oxygen:
Vital Signs
Temp Pulse Resp BP Pulse Ox
98.4 F 80 16 134/68 97
12/07/24 06:56 12/07/24 06:56 12/07/24 06:56 12/07/24 06:56 12/07/24 06:56
Intake and Output
12/06/24 12/07/24 12/08/24
06:59 06:59 06:59
Intake Total 820 / 820 940 / 940
Output Total 2295 / 2295 1580 / 1580 300 / 300
Balance -1475 / -1475 -640 / -640 -300 / -300
SaO2 97
Physical Exam
General: Comfortable and Other (NAD)
HEENT: Normocephalic, Anicteric and Moist Mucous Membranes
Cardiovascular: S1-S2, Regular Rhythm, Murmur (2/6 systolic murmur) and Peripheral Edema (n)
Respiratory: Clear, Wheeze (n), Crackles (n), Rhonchi (n), Non-Labored Respirations and Chest Tube (Right chest tube)
GI: Soft, Non Distended and Non Tender
Neurology: Awake, Alert and No Motor Deficits (Moves all extremities)
Skin: Warm, Dry, Jaundice (n) and Rash (n)
Labs/Micro/Reports
Lab Data
12/07/24 06:04
12/07/24 06:04
Microbiology
12/02/24 15:03 Pleural Fluid Body Fluid Culture - Final
No Growth After 72 Hours
12/02/24 15:03 Pleural Fluid Gram Stain - Final
--- NOTE | 2024-12-07 14:48 | CM ---
Patient seen at bedside with
Cont with chest tube
Repeat chest x-ray 12/08
Referral in [facility] for [facility]F
PLAN: SNF, pending acceptance/bed availability when stable
[2024-12-07 14:51] VITALS: BP 137/67
[2024-12-07] MEDS: LOKELMA 10 GRAM PO (15:27)
[2024-12-07] MEDS: NSS 1000 IV (15:30)
--- NOTE | 2024-12-07 15:40 | PTCARENOTE ---
Pt complaining of increased pain in R chest throughout shift. Tylenol and PRN oxycodone administered to pt without relief. Pt continues to have complaints of pain. MD notified. Order for one time dose oxycodone obtained and medication administered.
Chest tube still in place. POC ongoing.
--- NOTE | 2024-12-07 16:20 | W.PN.HOSP.TC ---
Today's Communication/Plan
-
Maintain chest tube for another 24 hours.
Repeat chest x-ray in a.m.
Continue antibiotics
Follow CBC
Lokelma
IV fluids
Follow BMP
Bladder scan
Assessment / Plan
Assessment / Plan
Impression
HPI: 84-year-old male with a past medical history of left kidney cancer status post left nephrectomy and chronic back pain with radiculopathy presents with a 2-day history of right upper flank pain. Patient reports that there is dull pain
constantly, with sharpness that waxes and wanes. He denies nausea, vomiting. No constipation, no diarrhea. He has been taking Tylenol and Advil for his pain. His pain is unassociated with food. His reports that he has been working in his
yard quite often, using a weed My. He denies chest pain, denies shortness of breath. No fever, no dysuria, no black or bloody stools.
Right lower back/upper flank pain
Pneumonia, right lower lobe infiltrate with possible parapneumonic pleural effusion
Acute kidney injury
TME, hyperactive daily
Labile hypertension
Mild dysphagia
Conditions prior to admission
Solitary kidney, status post left nephrectomy.
Chronic back pain.
Dementia senile type
Plan
Pneumonia, right lower lobe infiltrate suspect community-acquired, although reasonable risk for aspiration given age and cognitive impairment
Noted febrile within 24 hours postadmission with now rising white count.
Urinalysis negative on admission.
Imaging with 3 mm nonobstructive right-sided kidney stone.
Imaging also suggestive of a right small pleural effusion with adjacent consolidation, reasonable concern for right basilar pneumonia.
Chest x-ray 2 views with right lower lobe consolidation and effusion
Blood cultures negative to date
Repeat urine cultures negative
Chest ultrasound with possibly small, although loculated pleural effusion
Loculated pleural effusion not amenable to thoracentesis on 11/26.
Follow-up CT scan on 11/30 with right lower lobe process and loculated pleural effusion.
Repeat ultrasound on 12/01 with worsening right pleural effusion possible loculation
Status post right chest tube placement by [facility] on 12/02. Noted for pH 6.84, WBC 4144, LDH 1265. Findings consistent with empyema by pH
12/03 chest tube output around 100 over 24 hours. tPA lysis
Significant output close to 1 L post tPA lysis
Follow-up CT scan on 12/04 with improved right pleural effusion and infiltrate
Noted with rising white count of 22K the patient appeared to be nontoxic. Blood cultures negative to date. Will broaden antibiotic spectrum from ceftriaxone to Zosyn on 12/04
Follow-up chest x-ray in the morning
Follow-up right chest output
Acute kidney injury
Hyperkalemia
Solitary kidney.
Avoid nephrotoxins.
IV fluids
Status post Kayexalate 12/06
Lokelma on 12/06
Follow BMP
Bladder scan
Chronic back pain.
Continue symptomatic control including Tylenol, Flexeril, oxycodone for severe pain. Avoid NSAIDs with SHALA
Hyperactive delirium
Underlying cognitive impairment
Suspect dementia senile type
TSH, B12 is in normal limits.
Status post Seroquel
Status post Risperdal changed to as needed
Mental status improved
Has been off restraints
Labile hypertension
Monitor blood pressure closely. If persistently elevated will need to be started on medication.
Blood pressure AM 129/80
Mild dysphagia
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
Status post video swallow evaluation
Per speech continue with IDDS6 with mildly thick liquids
DVT prophylaxis with Lovenox
Full code
PT/OT-SNF.
Anticipated Discharge: > 48 hours
Subjective/Interval History
-
Date of Service: December 07, 2024
Objective Data
-
Labs:
Laboratory Results
12/07/24
06:04
WBC 13.7 H
Hgb 11.1 L
Hct 34.8 L
Plt Count 564 H
Sodium 136
Potassium 5.1
Chloride 102
Carbon Dioxide 29
BUN 27 H
Creatinine 1.5 H
Glucose 110 H
Calcium 8.6
Total Bilirubin 0.8
AST 95 H
ALT 93 H
Alkaline Phosphatase 552 H
Vital Signs:
Vital Signs
Temp Pulse Resp BP Pulse Ox
98.4 F 71 17 137/67 97
12/07/24 14:51 12/07/24 14:51 12/07/24 14:51 12/07/24 14:51 12/07/24 15:00
I&O
12/06/24 12/07/24 12/08/24
06:59 06:59 06:59
Intake Total 820 / 820 940 / 940 1680 / 1680
Output Total 2295 / 2295 1580 / 1580 500 / 500
Balance -1475 / -1475 -640 / -640 1180 / 1180
Physical Exam
-
General: Well Developed and No Apparent Distress
HEENT: Normocephalic, Atraumatic and Moist Mucous Membranes
Respiratory: Non Labored Respirations and Chest Tubes (Right chest tube in place with serosanguineous fluid); Negative Accessory Resp Muscle Use
Cardiac: Regular Rhythm and S1/S2; Negative Murmur, Rub or Gallop
GI: Soft, Nontender, Nondistended and Normal Bowel Sounds; Negative Organomegaly
Rectal: Deferred by Provider
Musculoskeletal: No Clubbing, No Cyanosis and No Edema
Skin: Negative Rash
Neuro: Awake
Psych: Calm
[2024-12-07] MEDS: REMOVE LIDOCAINE PATCH 2 PATCH REMOVE (20:29)
[2024-12-07 22:22] VITALS: BP 126/73
[2024-12-08] MEDS: UNASYN IV ×4 (02:10→20:46)
--- NOTE | 2024-12-08 02:28 | DOWNTIME ---
There was a [email or web address] Client Flush Tester Downtime on 12/08/2024 from 0100 to 12/08/2024 at 0220. Downtime documentation of patient's care, including medication administrations, has been reconciled in the electronic record per guidelines. Refer to the
patient's paper chart under the miscellaneous tab to see printed paper medication records and downtime forms.
[2024-12-08] MEDS: ROXICODONE 5 MG PO (04:36)
[2024-12-08] MEDS: NSS 1000 IV ×2 (06:10→17:47)
[2024-12-08 06:43] LABS: Hematocrit 35.0 % (39.0-52.0); Hemoglobin 11.2 g/dL (13.0-18.0); Mean Corp Hgb Conc. 32.0 g/dL (33.0-37.0); Mean Corpuscular Volume 86.0 fL (80.0-94.0); Nucleated Red Blood Cells % 0 % (-); Platelet Count 565 10^3/uL (130-400); Red Cell Dist. Width 13.3 % (11.5-14.5)
[2024-12-08 07:17] LABS: Blood Urea Nitrogen 23 mg/dl (9-20); Calcium 8.3 mg/dl (8.4-10.2); Carbon Dioxide 27 mmol/L (22-30); Chloride 105 mmol/L (98-107); Estimated Creatinine Clearance 40 ml/min; Glucose 102 mg/dl (70-99); Potassium 5.2 mmol/L (3.5-5.1); Sodium 137 mmol/L (135-145); eGFR 53.84
[2024-12-08] MEDS: TYLENOL 1000 MG PO ×3 (07:53→22:50)
[2024-12-08] MEDS: TESSALON PERLES 100 MG PO ×2 (07:53→20:46)
[2024-12-08] MEDS: LIDOCAINE 4% PATCH 2 PATCH TOPICAL (07:54)
--- NOTE | 2024-12-08 10:00 | W.PN.PUL.V3 ---
Today's Communication / Plan
-
Monitor chest tube output
Occasional radiograph to ensure complete evacuation
Antibiotics
Aspiration precautions
Assessment
-
Patient is an 84-year-old male with history of kidney cancer status post left nephrectomy, radiculopathy/chronic back pain, presenting to ER 11/23/24 with right upper flank pain, admitted for possible infection. Chest x-ray demonstrating right
sided infiltrate, suspicious for pneumonia. UA was negative on admission. On repeat chest x-rays, right sided pleural effusion had progressed into loculated appearance. Evaluated for thoracentesis on 11/27 but could not be amenable for sampling
due to a small fluid size. Underwent CT showing moderate size loculated pleural effusion, enlarging. He provides no additional History/ROS due to dementia. We are consulted for eval 11/30/24.
Pneumonia, right lower lobe suspect aspiration
Pleural effusion, likely empyema, cultures however staying negative so far
Right upper flank pain
Fever/leukocytosis
Acute kidney injury
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
Chronic back pain with radiculopathy
Dementia
Plan
Respiratory status slowly improving-still has significantly diminished breath sounds at the right base
Supplemental oxygen if needed-was not on oxygen prior to admission
Incentive spirometry
Nebulizers if needed-currently not spastic
Aspiration precautions
Check cultures
Empiric antibiotics-ampicillin/sulbactam
Chest tube placed by interventional radiology 12/02/[id number] 6.84, WBC 4144, Glu <30, TP 4.2, LDH 1265--indicated exudate/empyema noted
Chest tube output--555 mL on 12/07/2024 and -235 mL thus far 12/08/2024
Monitor chest tube drainage intrapleural tPA/DNase-has received twice
Follow radiographically and might require another CT chest-if incomplete drainage then chest tube repositioning, upsizing chest tube, and hopefully not requiring thoracic surgical input/decortication
VSE 11/27/24 noting mild pharyngeal dysphagia
He is placed on a modified diet
Speech following
RUE Cellulitis noted, on IV abx
DVT prophylaxis-on
Diagnostic Data
CT Scan: CHEST 11/30/24- Moderate loculated slightly high attenuation right pleural effusion with extension of small to moderate volume fluid into the right minor fissure and accompanying right lower lobe consolidation extending to the right hilum,
overall markedly limited without intravenous contrast. Malignancy in the right lower lobe cannot be excluded. Tiny left pleural effusion with accompanying left lower lobe opacification most likely representing subsegmental atelectasis. Predominantly
fluid density in the subcarinal mediastinum, indeterminate. Coronary artery calcifications.
US 11/27/24- Trace right pleural effusion. Amount of fluid present not sufficient for safe thoracentesis.
Echo: Stress 2011- Echocardiographic images are good. Baseline EF is 55% without regional wall motion abnormalities. With exercise, there is augmentation of all regional wall motion the EF of 70%. This a normal echocardiographic response to
exercise.
Subjective Data
-
Date of Service:
Date of Service: December 08, 2024
Chief Complaint: Pulmonary Follow Up and Dyspnea Follow Up
Subjective:
Some right-sided chest tube pain, no shortness of breath at rest, no abdominal pain
Review of Systems
General: Other (Per HPI)
Objective Data
Data Reviewed
Vital Signs / I&O:
Vital Signs
Temp Pulse Resp BP Pulse Ox
98.0 F 74 16 126/73 95
12/07/24 22:22 12/07/24 22:22 12/07/24 22:22 12/07/24 22:22 12/08/24 08:31
Intake and Output
12/07/24 12/08/24 12/09/24
06:59 06:59 06:59
Intake Total 940 / 940 2530 / 2530
Output Total 1580 / 1580 2410 / 2410
Balance -640 / -640 120 / 120
SaO2: 95
Physical Exam
General: Respiratory Distress (n), Comfortable and Other (NAD)
HEENT: Normocephalic, Anicteric and Moist Mucous Membranes
Cardiovascular: Regular Rhythm, Murmur (2/6 systolic murmur) and Peripheral Edema (n)
Respiratory: Clear, Wheeze (n), Crackles (n), Rhonchi (n), Non-Labored Respirations and Chest Tube (Right chest tube)
GI: Soft, Non Distended and Non Tender
Neurology: Awake, Alert and No Motor Deficits (Moves all extremities)
Skin: Warm, Good Color, Cyanosis (n), Jaundice (n) and Rash (n)
Labs/Micro/Reports
Lab Data
12/08/24 06:07
12/08/24 06:07
Microbiology
12/02/24 15:03 Pleural Fluid Body Fluid Culture - Final
No Growth After 72 Hours
12/02/24 15:03 Pleural Fluid Gram Stain - Final
[2024-12-08 11:47] VITALS: BP 127/67; O2SAT 97
--- NOTE | 2024-12-08 12:40 | CM ---
Patient seen at beside
LM for
Cont with chest tube
CXR
[facility]
updated [facility] at [facility] cont with Chest tube
no preauth
PLAN: SNF, pending bed availability when stable
[2024-12-08 15:15] VITALS: BP 124/80
[2024-12-08] MEDS: LOKELMA 10 GRAM PO (15:16)
--- NOTE | 2024-12-08 17:02 | W.PN.HOSP.TC ---
Today's Communication/Plan
-
Antibiotics
Maintain chest tube and follow output
CXR in am
Assessment / Plan
Assessment / Plan
Impression
HPI: 84-year-old male with a past medical history of left kidney cancer status post left nephrectomy and chronic back pain with radiculopathy presents with a 2-day history of right upper flank pain. Patient reports that there is dull pain
constantly, with sharpness that waxes and wanes. He denies nausea, vomiting. No constipation, no diarrhea. He has been taking Tylenol and Advil for his pain. His pain is unassociated with food. His reports that he has been working in his
yard quite often, using a weed My. He denies chest pain, denies shortness of breath. No fever, no dysuria, no black or bloody stools.
Right lower back/upper flank pain
Pneumonia, with empyema
Left small pneumothorax
Acute kidney injury
TME, hyperactive daily
Labile hypertension
Mild dysphagia
Conditions prior to admission
Solitary kidney, status post left nephrectomy.
Chronic back pain.
Dementia senile type
Plan
Pneumonia, right lower lobe infiltrate suspect community-acquired, although reasonable risk for aspiration given age and cognitive impairment
Noted febrile within 24 hours postadmission with now rising white count.
Urinalysis negative on admission.
Imaging with 3 mm nonobstructive right-sided kidney stone.
Imaging also suggestive of a right small pleural effusion with adjacent consolidation, reasonable concern for right basilar pneumonia.
Chest x-ray 2 views with right lower lobe consolidation and effusion
Blood cultures negative to date
Repeat urine cultures negative
Chest ultrasound with possibly small, although loculated pleural effusion
Loculated pleural effusion not amenable to thoracentesis on 11/26.
Follow-up CT scan on 11/30 with right lower lobe process and loculated pleural effusion.
Repeat ultrasound on 12/01 with worsening right pleural effusion possible loculation
Status post right chest tube placement by [facility] on 12/02. Noted for pH 6.84, WBC 4144, LDH 1265. Findings consistent with empyema by pH
12/03 chest tube output around 100 over 24 hours. tPA lysis
Significant output close to 1 L post tPA lysis
Follow-up CT scan on 12/04 with improved right pleural effusion and infiltrate
Noted with rising white count of 22K the patient appeared to be nontoxic. Blood cultures negative to date. Will broaden antibiotic spectrum from ceftriaxone to Zosyn on 12/04
Follow-up chest x-ray in the morning
Follow-up right chest output
Acute kidney injury
Hyperkalemia
Solitary kidney.
Avoid nephrotoxins.
IV fluids
Status post Kayexalate 12/06
Lokelma on 12/06
Follow BMP
Bladder scan
Chronic back pain.
Continue symptomatic control including Tylenol, Flexeril, oxycodone for severe pain. Avoid NSAIDs with SHALA
Hyperactive delirium
Underlying cognitive impairment
Suspect dementia senile type
TSH, B12 is in normal limits.
Status post Seroquel
Status post Risperdal changed to as needed
Mental status improved
Has been off restraints
Labile hypertension
Monitor blood pressure closely. If persistently elevated will need to be started on medication.
Blood pressure AM 129/80
Mild dysphagia
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
Status post video swallow evaluation
Per speech continue with IDDS6 with mildly thick liquids
DVT prophylaxis with Lovenox
Full code
PT/OT-SNF.
Anticipated Discharge: > 48 hours
Subjective/Interval History
-
Date of Service: December 08, 2024
Objective Data
-
Labs:
Laboratory Results
12/08/24
06:07
WBC 12.5 H
Hgb 11.2 L
Hct 35.0 L
Plt Count 565 H
Sodium 137
Potassium 5.2 H
Chloride 105
Carbon Dioxide 27
BUN 23 H
Creatinine 1.3
Glucose 102 H
Calcium 8.3 L
Vital Signs:
Vital Signs
Temp Pulse Resp BP Pulse Ox
97.7 F 84 16 124/80 98
12/08/24 15:15 12/08/24 15:15 12/08/24 15:15 12/08/24 15:15 12/08/24 15:15
I&O
12/07/24 12/08/24 12/09/24
06:59 06:59 06:59
Intake Total 940 / 940 2530 / 2530
Output Total 1580 / 1580 2410 / 2410
Balance -640 / -640 120 / 120
Physical Exam
-
General: Well Developed and No Apparent Distress
HEENT: Normocephalic, Atraumatic and Moist Mucous Membranes
Respiratory: Non Labored Respirations and Chest Tubes (Right chest tube in place with serosanguineous fluid); Negative Accessory Resp Muscle Use
Cardiac: Regular Rhythm and S1/S2; Negative Murmur, Rub or Gallop
GI: Soft, Nontender, Nondistended and Normal Bowel Sounds; Negative Organomegaly
Rectal: Deferred by Provider
Musculoskeletal: No Clubbing, No Cyanosis and No Edema
Skin: Negative Rash
Neuro: Awake
Psych: Calm
[2024-12-08] MEDS: REMOVE LIDOCAINE PATCH 2 PATCH REMOVE (20:45)
[2024-12-08 22:16] VITALS: BP 139/69
[2024-12-09] MEDS: UNASYN IV ×4 (01:42→21:07)
[2024-12-09 06:44] LABS: Hematocrit 33.5 % (39.0-52.0); Hemoglobin 10.8 g/dL (13.0-18.0); Mean Corp Hgb Conc. 32.2 g/dL (33.0-37.0); Mean Corpuscular Volume 85.9 fL (80.0-94.0); Nucleated Red Blood Cells % 0 % (-); Platelet Count 524 10^3/uL (130-400); Red Cell Dist. Width 13.2 % (11.5-14.5)
[2024-12-09 07:08] VITALS: BP 144/82
[2024-12-09 07:13] LABS: Blood Urea Nitrogen 20 mg/dl (9-20); Calcium 8.3 mg/dl (8.4-10.2); Carbon Dioxide 26 mmol/L (22-30); Chloride 108 mmol/L (98-107); Estimated Creatinine Clearance 44 ml/min; Glucose 98 mg/dl (70-99); Potassium 5.1 mmol/L (3.5-5.1); Sodium 137 mmol/L (135-145); eGFR 59.26
[2024-12-09] MEDS: LIDOCAINE 4% PATCH 2 PATCH TOPICAL (08:12)
[2024-12-09] MEDS: TESSALON PERLES 100 MG PO ×2 (08:14→21:07)
[2024-12-09] MEDS: TYLENOL 1000 MG PO ×3 (08:14→21:06)
--- NOTE | 2024-12-09 09:58 | W.PN.PUL.V3 ---
Today's Communication / Plan
-
Continue to monitor chest tube output as well as radiographically
Follow radiographically-most recent chest x-ray without unexpected left pneumothorax yesterday-may have been a skinfold
Antibiotics
Assessment
-
Patient is an 84-year-old male with history of kidney cancer status post left nephrectomy, radiculopathy/chronic back pain, presenting to ER 11/23/24 with right upper flank pain, admitted for possible infection. Chest x-ray demonstrating right
sided infiltrate, suspicious for pneumonia. UA was negative on admission. On repeat chest x-rays, right sided pleural effusion had progressed into loculated appearance. Evaluated for thoracentesis on 11/27 but could not be amenable for sampling
due to a small fluid size. Underwent CT showing moderate size loculated pleural effusion, enlarging. He provides no additional History/ROS due to dementia. We are consulted for eval 11/30/24.
Pneumonia, right lower lobe suspect aspiration
Pleural effusion, likely empyema, cultures however staying negative so far
Right upper flank pain
Fever/leukocytosis
Acute kidney injury
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
Chronic back pain with radiculopathy
Dementia
Plan
Respiratory status slowly improving-still has significantly diminished breath sounds at the right base
Supplemental oxygen if needed-was not on oxygen prior to admission
Incentive spirometry
Nebulizers if needed-currently not spastic
Aspiration precautions
Chest x-ray 12/09/2024-no pneumothorax on either side-abnormality on yesterday's chest x-ray may have been related to skinfold on the left side
Check cultures
Empiric antibiotics-ampicillin/sulbactam
Chest tube placed by interventional radiology 12/02/[id number] 6.84, WBC 4144, Glu <30, TP 4.2, LDH 1265--indicated exudate/empyema noted
Chest tube output--555 mL on 12/07/2024 and -235 mL 12/08/2024
Monitor chest tube drainage intrapleural tPA/DNase-has received twice
Follow radiographically in addition to monitoring chest tube output and might require another CT chest-if incomplete drainage then chest tube repositioning, upsizing chest tube, and hopefully not requiring thoracic surgical input/decortication
VSE 11/27/24 noting mild pharyngeal dysphagia
He is placed on a modified diet
Speech following
RUE Cellulitis noted, on IV abx
DVT prophylaxis-on
Diagnostic Data
CT Scan: CHEST 11/30/24- Moderate loculated slightly high attenuation right pleural effusion with extension of small to moderate volume fluid into the right minor fissure and accompanying right lower lobe consolidation extending to the right hilum,
overall markedly limited without intravenous contrast. Malignancy in the right lower lobe cannot be excluded. Tiny left pleural effusion with accompanying left lower lobe opacification most likely representing subsegmental atelectasis. Predominantly
fluid density in the subcarinal mediastinum, indeterminate. Coronary artery calcifications.
US 11/27/24- Trace right pleural effusion. Amount of fluid present not sufficient for safe thoracentesis.
Echo: Stress 2011- Echocardiographic images are good. Baseline EF is 55% without regional wall motion abnormalities. With exercise, there is augmentation of all regional wall motion the EF of 70%. This a normal echocardiographic response to
exercise.
Subjective Data
-
Date of Service:
Date of Service: December 09, 2024
Chief Complaint: Pulmonary Follow Up and Dyspnea Follow Up
Subjective:
Confused but no complaints of shortness of breath, no chest pain, chest congestion, productive cough
Review of Systems
General: Other (Per HPI)
Objective Data
Data Reviewed
Vital Signs / I&O:
Vital Signs
Temp Pulse Resp BP Pulse Ox
98.0 F 78 16 144/82 96
12/09/24 07:08 12/09/24 07:08 12/09/24 07:08 12/09/24 07:08 12/09/24 07:08
Intake and Output
12/08/24 12/09/24 12/10/24
06:59 06:59 06:59
Intake Total 2530 / 2530
Output Total 2410 / 2410 1025 / 1025
Balance 120 / 120 -1025 / -1025
SaO2: 96
Physical Exam
General: Respiratory Distress (n), Comfortable and Other (NAD)
HEENT: Normocephalic, Anicteric and Moist Mucous Membranes
Cardiovascular: Regular Rhythm, Murmur (2/6 systolic murmur) and Peripheral Edema (n)
Respiratory: Clear, Wheeze (n), Crackles (n), Rhonchi (n), Non-Labored Respirations and Chest Tube (Right chest tube)
GI: Soft, Non Distended and Non Tender
Neurology: Awake, Alert and No Motor Deficits (Moves all extremities)
Skin: Warm, Good Color, Cyanosis (n), Jaundice (n) and Rash (n)
Labs/Micro/Reports
Lab Data
12/09/24 06:13
12/09/24 06:13
[2024-12-09] MEDS: LOKELMA 5 GRAM PO ×2 (13:49→17:00)
[2024-12-09] MEDS: FLUSH (NSS) 2 FLUSH IV (13:56)
--- NOTE | 2024-12-09 14:23 | CM ---
Patient seen at bedside with
cont with chest tube
CXR
Referral in [facility] for [facility], updated in [facility]
PLAN: SNF, pending bed availability when stable
[2024-12-09 15:05] VITALS: BP 129/72
--- NOTE | 2024-12-09 16:15 | W.PN.HOSP.TC ---
Today's Communication/Plan
-
Follow-up chest tube output.
Follow-up CBC
Continue antibiotics
Possibly for repeated imaging in the morning
Renal function improving
Lokelma
BMP in a.m.
Assessment / Plan
Assessment / Plan
Impression
HPI: 84-year-old male with a past medical history of left kidney cancer status post left nephrectomy and chronic back pain with radiculopathy presents with a 2-day history of right upper flank pain. Patient reports that there is dull pain
constantly, with sharpness that waxes and wanes. He denies nausea, vomiting. No constipation, no diarrhea. He has been taking Tylenol and Advil for his pain. His pain is unassociated with food. His reports that he has been working in his
yard quite often, using a weed My. He denies chest pain, denies shortness of breath. No fever, no dysuria, no black or bloody stools.
Right lower back/upper flank pain
Pneumonia, with empyema
Left small pneumothorax
Acute kidney injury
TME, hyperactive daily
Labile hypertension
Mild dysphagia
Conditions prior to admission
Solitary kidney, status post left nephrectomy.
Chronic back pain.
Dementia senile type
Plan
Pneumonia, right lower lobe infiltrate suspect community-acquired, although reasonable risk for aspiration given age and cognitive impairment
Noted febrile within 24 hours postadmission with now rising white count.
Urinalysis negative on admission.
Imaging with 3 mm nonobstructive right-sided kidney stone.
Imaging also suggestive of a right small pleural effusion with adjacent consolidation, reasonable concern for right basilar pneumonia.
Chest x-ray 2 views with right lower lobe consolidation and effusion
Blood cultures negative to date
Repeat urine cultures negative
Chest ultrasound with possibly small, although loculated pleural effusion
Loculated pleural effusion not amenable to thoracentesis on 11/26.
Follow-up CT scan on 11/30 with right lower lobe process and loculated pleural effusion.
Repeat ultrasound on 12/01 with worsening right pleural effusion possible loculation
Status post right chest tube placement by [facility] on 12/02. Noted for pH 6.84, WBC 4144, LDH 1265. Findings consistent with empyema by pH
12/03 chest tube output around 100 over 24 hours. tPA lysis
Significant output close to 1 L post tPA lysis
Follow-up CT scan on 12/04 with improved right pleural effusion and infiltrate
Continue monitoring chest tube output
WBC trending down
Follow-up chest x-ray on 12/09 with improved right pleural effusion. No evidence for a left pneumothorax (pneumothorax reading on previous x-ray likely consistent with skinfold)
Acute kidney injury
Hyperkalemia
Solitary kidney.
Avoid nephrotoxins.
IV fluids
Status post Kayexalate 12/06
Lokelma on 12/06
Follow BMP
Bladder scan
Chronic back pain.
Continue symptomatic control including Tylenol, Flexeril, oxycodone for severe pain. Avoid NSAIDs with SHALA
Hyperactive delirium
Underlying cognitive impairment
Suspect dementia senile type
TSH, B12 is in normal limits.
Status post Seroquel
Status post Risperdal changed to as needed
Mental status improved
Has been off restraints
Labile hypertension
Monitor blood pressure closely. If persistently elevated will need to be started on medication.
Blood pressure AM 129/80
Mild dysphagia
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
Status post video swallow evaluation
Per speech continue with IDDS6 with mildly thick liquids
DVT prophylaxis with Lovenox
Full code
PT/OT-SNF.
Anticipated Discharge: > 48 hours
Subjective/Interval History
-
Date of Service: December 09, 2024
Objective Data
-
Labs:
Laboratory Results
12/09/24
06:13
WBC 11.0 H
Hgb 10.8 L
Hct 33.5 L
Plt Count 524 H
Sodium 137
Potassium 5.1
Chloride 108 H
Carbon Dioxide 26
BUN 20
Creatinine 1.2
Glucose 98
Calcium 8.3 L
Vital Signs:
Vital Signs
Temp Pulse Resp BP Pulse Ox
98.0 F 76 16 129/72 98
12/09/24 15:05 12/09/24 15:05 12/09/24 15:05 12/09/24 15:05 12/09/24 15:05
I&O
12/08/24 12/09/24 12/10/24
06:59 06:59 06:59
Intake Total 2530 / 2530 800 / 800
Output Total 2410 / 2410 1025 / 1025 800 / 800
Balance 120 / 120 -1025 / -1025 0 / 0
Physical Exam
-
General: Well Developed and No Apparent Distress
HEENT: Normocephalic, Atraumatic and Moist Mucous Membranes
Respiratory: Non Labored Respirations and Chest Tubes (Right chest tube in place with serosanguineous fluid); Negative Accessory Resp Muscle Use
Cardiac: Regular Rhythm and S1/S2; Negative Murmur, Rub or Gallop
GI: Soft, Nontender, Nondistended and Normal Bowel Sounds; Negative Organomegaly
Rectal: Deferred by Provider
Musculoskeletal: No Clubbing, No Cyanosis and No Edema
Skin: Negative Rash
Neuro: Awake
Psych: Calm
[2024-12-09] MEDS: REMOVE LIDOCAINE PATCH 2 PATCH REMOVE (21:07)
[2024-12-09] MEDS: RISPERDAL 0.25 MG PO (22:51)
[2024-12-09 23:00] VITALS: BP 124/69
[2024-12-10] MEDS: RISPERDAL 0.25 MG PO (01:00)
[2024-12-10] MEDS: ROXICODONE 5 MG PO (01:07)
[2024-12-10] MEDS: UNASYN IV ×4 (01:08→20:55)
--- NOTE | 2024-12-10 02:29 | PTCARENOTE ---
Risperdal given x2- pt gets upset about not seeing his - tries to call her at all hours of night- remans impulsive requiring 1-1 especially with chest tube
[2024-12-10] MEDS: LOKELMA 5 GRAM PO ×3 (05:01→17:49)
[2024-12-10 07:00] VITALS: BP 140/72
[2024-12-10 08:43] LABS: Hematocrit 33.4 % (39.0-52.0); Hemoglobin 10.6 g/dL (13.0-18.0); Mean Corp Hgb Conc. 31.7 g/dL (33.0-37.0); Mean Corpuscular Volume 85.9 fL (80.0-94.0); Nucleated Red Blood Cells % 0 % (-); Platelet Count 525 10^3/uL (130-400); Red Cell Dist. Width 13.1 % (11.5-14.5)
[2024-12-10] MEDS: TESSALON PERLES 100 MG PO ×2 (09:11→20:56)
[2024-12-10] MEDS: TYLENOL 1000 MG PO ×3 (09:11→21:02)
[2024-12-10 09:12] LABS: Blood Urea Nitrogen 23 mg/dl (9-20); Calcium 8.8 mg/dl (8.4-10.2); Carbon Dioxide 26 mmol/L (22-30); Chloride 106 mmol/L (98-107); Estimated Creatinine Clearance 40 ml/min; Glucose 107 mg/dl (70-99); Potassium 5.0 mmol/L (3.5-5.1); Sodium 137 mmol/L (135-145); eGFR 53.84
[2024-12-10] MEDS: LIDOCAINE 4% PATCH 2 PATCH TOPICAL (09:12)
--- NOTE | 2024-12-10 09:51 | W.PN.PUL.V3 ---
Today's Communication / Plan
-
Monitor chest tube output
Check CT chest-if majority fluid removed then discontinue chest tube, if fluid remains in loculated options include reposition chest tube, upsize chest tube, second chest tube, etc.
Continue antibiotics
Assessment
-
Patient is an 84-year-old male with history of kidney cancer status post left nephrectomy, radiculopathy/chronic back pain, presenting to ER 11/23/24 with right upper flank pain, admitted for possible infection. Chest x-ray demonstrating right
sided infiltrate, suspicious for pneumonia. UA was negative on admission. On repeat chest x-rays, right sided pleural effusion had progressed into loculated appearance. Evaluated for thoracentesis on 11/27 but could not be amenable for sampling
due to a small fluid size. Underwent CT showing moderate size loculated pleural effusion, enlarging. He provides no additional History/ROS due to dementia. We are consulted for eval 11/30/24.
Pneumonia, right lower lobe suspect aspiration
Pleural effusion, likely empyema, cultures however staying negative so far
Right upper flank pain
Fever/leukocytosis
Acute kidney injury
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
Chronic back pain with radiculopathy
Dementia
Plan
Respiratory status slowly improving-still has diminished breath sounds at the right base
Supplemental oxygen if needed-was not on oxygen prior to admission-currently on room air-99% saturation
Incentive spirometry encouraged
Nebulizers if needed-currently not spastic
Aspiration precautions
Chest x-ray 12/09/2024-no pneumothorax on either side-abnormality on yesterday's chest x-ray may have been related to skinfold on the left side
Check CT chest 12/06/2024
Check cultures
Empiric antibiotics-ampicillin/sulbactam
Chest tube placed by interventional radiology 12/02/[id number] 6.84, WBC 4144, Glu <30, TP 4.2, LDH 1265--indicated exudate/empyema noted
Chest tube output--555 mL on 12/07/2024 and -235 mL 12/08/2024 and -140 mL on 12/06/2024
Monitor chest tube drainage intrapleural tPA/DNase-has received twice
Follow radiographically in addition to monitoring chest tube output and might require another CT chest-if incomplete drainage then chest tube repositioning, upsizing chest tube, and hopefully not requiring thoracic surgical input/decortication
VSE 11/27/24 noting mild pharyngeal dysphagia
He is placed on a modified diet
Speech following
RUE Cellulitis noted, on IV abx
DVT prophylaxis-on Lovenox
Diagnostic Data
CT Scan: CHEST 11/30/24- Moderate loculated slightly high attenuation right pleural effusion with extension of small to moderate volume fluid into the right minor fissure and accompanying right lower lobe consolidation extending to the right hilum,
overall markedly limited without intravenous contrast. Malignancy in the right lower lobe cannot be excluded. Tiny left pleural effusion with accompanying left lower lobe opacification most likely representing subsegmental atelectasis. Predominantly
fluid density in the subcarinal mediastinum, indeterminate. Coronary artery calcifications.
US 11/27/24- Trace right pleural effusion. Amount of fluid present not sufficient for safe thoracentesis.
Echo: Stress 2011- Echocardiographic images are good. Baseline EF is 55% without regional wall motion abnormalities. With exercise, there is augmentation of all regional wall motion the EF of 70%. This a normal echocardiographic response to
exercise.
Subjective Data
-
Date of Service:
Date of Service: December 10, 2024
Chief Complaint: Pulmonary Follow Up and Dyspnea Follow Up
Subjective:
Out of bed, no complaints of worsening shortness of breath, chest tube with increased drainage, no abdominal pain
Review of Systems
General: Other (Per HPI)
Objective Data
Data Reviewed
Vital Signs / I&O:
Vital Signs
Temp Pulse Resp BP Pulse Ox
98.1 F 76 18 140/72 99
12/10/24 07:00 12/10/24 07:00 12/10/24 07:00 12/10/24 07:00 12/10/24 07:00
Intake and Output
12/09/24 12/10/24 12/11/24
06:59 06:59 06:59
Intake Total 2230 / 2230
Output Total 1025 / 1025 3445 / 3445
Balance -1025 / -1025 -1215 / -1215
SaO2: 99
Physical Exam
General: Respiratory Distress (n), Comfortable and Other (NAD)
HEENT: Normocephalic, Anicteric and Moist Mucous Membranes
Cardiovascular: Regular Rhythm, Murmur (2/6 systolic murmur) and Peripheral Edema (n)
Respiratory: Clear, Wheeze (n), Crackles (n), Rhonchi (n), Non-Labored Respirations and Chest Tube (Right chest tube)
GI: Soft, Non Distended and Non Tender
Neurology: Awake, Alert and No Motor Deficits (Moves all extremities)
Skin: Warm, Good Color, Cyanosis (n), Jaundice (n) and Rash (n)
Labs/Micro/Reports
Lab Data
12/10/24 08:08
12/10/24 08:08
[2024-12-10 12:45] VITALS: BP 143/72; PULSE 78; O2SAT 98
[2024-12-10] MEDS: TYLENOL 650 MG PO (13:06)
--- NOTE | 2024-12-10 14:33 | W.PN.HOSP.TC ---
Today's Communication/Plan
-
Chest tube output around 100 over the last [address] chest to reassess extent of drain, possible loculations
Continue antibiotics
Hyperkalemia improved. Noted mild bump in creatinine 1.3
Continue bladder scan
Maintain Lokelma
BMP in a.m.
Assessment / Plan
Assessment / Plan
Impression
HPI: 84-year-old male with a past medical history of left kidney cancer status post left nephrectomy and chronic back pain with radiculopathy presents with a 2-day history of right upper flank pain. Patient reports that there is dull pain
constantly, with sharpness that waxes and wanes. He denies nausea, vomiting. No constipation, no diarrhea. He has been taking Tylenol and Advil for his pain. His pain is unassociated with food. His reports that he has been working in his
yard quite often, using a weed My. He denies chest pain, denies shortness of breath. No fever, no dysuria, no black or bloody stools.
Right lower back/upper flank pain
Pneumonia, with empyema
Left small pneumothorax
Acute kidney injury
TME, hyperactive daily
Labile hypertension
Mild dysphagia
Conditions prior to admission
Solitary kidney, status post left nephrectomy.
Chronic back pain.
Dementia senile type
Plan
Pneumonia, right lower lobe infiltrate suspect community-acquired, although reasonable risk for aspiration given age and cognitive impairment
Noted febrile within 24 hours postadmission with now rising white count.
Urinalysis negative on admission.
Imaging with 3 mm nonobstructive right-sided kidney stone.
Imaging also suggestive of a right small pleural effusion with adjacent consolidation, reasonable concern for right basilar pneumonia.
Chest x-ray 2 views with right lower lobe consolidation and effusion
Blood cultures negative to date
Repeat urine cultures negative
Chest ultrasound with possibly small, although loculated pleural effusion
Loculated pleural effusion not amenable to thoracentesis on 11/26.
Follow-up CT scan on 11/30 with right lower lobe process and loculated pleural effusion.
Repeat ultrasound on 12/01 with worsening right pleural effusion possible loculation
Status post right chest tube placement by [facility] on 12/02. Noted for pH 6.84, WBC 4144, LDH 1265. Findings consistent with empyema by pH
12/03 chest tube output around 100 over 24 hours. tPA lysis
Significant output close to 1 L post tPA lysis
Follow-up CT scan on 12/04 with improved right pleural effusion and infiltrate
Continue monitoring chest tube output
WBC trending down
Follow-up chest x-ray on 12/09 with improved right pleural effusion. No evidence for a left pneumothorax (pneumothorax reading on previous x-ray likely consistent with skinfold)
Acute kidney injury
Hyperkalemia
Solitary kidney.
Avoid nephrotoxins.
IV fluids
Status post Kayexalate 12/06
Lokelma on 12/06
Follow BMP
Bladder scan
Chronic back pain.
Continue symptomatic control including Tylenol, Flexeril, oxycodone for severe pain. Avoid NSAIDs with SHALA
Hyperactive delirium
Underlying cognitive impairment
Suspect dementia senile type
TSH, B12 is in normal limits.
Status post Seroquel
Status post Risperdal changed to as needed
Mental status improved
Has been off restraints
Labile hypertension
Monitor blood pressure closely. If persistently elevated will need to be started on medication.
Blood pressure AM 129/80
Mild dysphagia
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
Status post video swallow evaluation
Per speech continue with IDDS6 with mildly thick liquids
DVT prophylaxis with Lovenox
Full code
PT/OT-SNF.
Anticipated Discharge: > 48 hours
Subjective/Interval History
-
Date of Service: December 10, 2024
Objective Data
-
Labs:
Laboratory Results
12/10/24
08:08
WBC 11.6 H
Hgb 10.6 L
Hct 33.4 L
Plt Count 525 H
Sodium 137
Potassium 5.0
Chloride 106
Carbon Dioxide 26
BUN 23 H
Creatinine 1.3
Glucose 107 H
Calcium 8.8
Vital Signs:
Vital Signs
Temp Pulse Resp BP Pulse Ox
98.1 F 76 18 140/72 99
12/10/24 07:00 12/10/24 07:00 12/10/24 07:00 12/10/24 07:00 12/10/24 09:51
I&O
12/09/24 12/10/24 12/11/24
06:59 06:59 06:59
Intake Total 2230 / 2230
Output Total 1025 / 1025 3445 / 3445
Balance -1025 / -1025 -1215 / -1215
Physical Exam
-
General: Well Developed and No Apparent Distress
HEENT: Normocephalic, Atraumatic and Moist Mucous Membranes
Respiratory: Non Labored Respirations and Chest Tubes (Right chest tube in place with serosanguineous fluid); Negative Accessory Resp Muscle Use
Cardiac: Regular Rhythm and S1/S2; Negative Murmur, Rub or Gallop
GI: Soft, Nontender, Nondistended and Normal Bowel Sounds; Negative Organomegaly
Rectal: Deferred by Provider
Musculoskeletal: No Clubbing, No Cyanosis and No Edema
Skin: Negative Rash
Neuro: Awake
Psych: Calm
[2024-12-10 15:21] VITALS: BP 118/63
--- NOTE | 2024-12-10 16:31 | PTOTSP ---
Speech Language Pathology
Pt seen for dysphagia tx. present at bedside. Reviewed results/recommendations from [facility] with pt/. Decreased understanding from both. Last session, had mentioned to LEAN MANUFACTURING ENGINEER that pt had intermittent coughing with P.O. intake. Mentioned
this date, and she denied this. Both pt and stated that he is tolerating diet without any issues. P.O. trials of puree, regular solids, and thin liquids provided. Adequate mastication, bolus formation, and A-P transit noted with no oral
residue. No overt signs of aspiration.
Recommend:
(1) Regular solids/thin liquids
(2) General aspiration precautions
(3) Meds as tolerated
(4) LEAN MANUFACTURING ENGINEER to follow, likely briefly
--- NOTE | 2024-12-10 16:46 | CM ---
Chest tube remains.
PT OT indicate SNF.
IV antibiotics.
Supportive
Referral for [facility] in care port. Check for bed day of dc.
PLAN [facility] if bed available day of dc.
--- NOTE | 2024-12-10 19:02 | PTCARENOTE ---
New chest tube atrium placed at bedside with additional RN. Chest tube output=yellow.
[2024-12-10] MEDS: REMOVE LIDOCAINE PATCH 2 PATCH REMOVE (20:56)
--- NOTE | 2024-12-10 22:06 | PTCARENOTE ---
patient was offered oral and body care multiple times, but they refused. The patient stated it is their preference to do it in the morning.
[2024-12-10 23:05] VITALS: BP 151/56
[2024-12-11] MEDS: UNASYN IV ×4 (02:17→21:21)
[2024-12-11] MEDS: LOKELMA 5 GRAM PO (06:14)
[2024-12-11 06:31] LABS: Hematocrit 33.9 % (39.0-52.0); Hemoglobin 10.7 g/dL (13.0-18.0); Mean Corp Hgb Conc. 31.6 g/dL (33.0-37.0); Mean Corpuscular Volume 86.0 fL (80.0-94.0); Nucleated Red Blood Cells % 0 % (-); Platelet Count 458 10^3/uL (130-400); Red Cell Dist. Width 13.1 % (11.5-14.5)
[2024-12-11 07:12] VITALS: BP 116/85
[2024-12-11 07:18] LABS: Blood Urea Nitrogen 20 mg/dl (9-20); Calcium 8.9 mg/dl (8.4-10.2); Carbon Dioxide 26 mmol/L (22-30); Chloride 107 mmol/L (98-107); Estimated Creatinine Clearance 44 ml/min; Glucose 94 mg/dl (70-99); Potassium 5.2 mmol/L (3.5-5.1); Sodium 138 mmol/L (135-145); eGFR 59.26
[2024-12-11] MEDS: TYLENOL 1000 MG PO ×3 (09:17→21:21)
[2024-12-11] MEDS: TESSALON PERLES 100 MG PO ×2 (09:17→21:19)
[2024-12-11] MEDS: LIDOCAINE 4% PATCH 2 PATCH TOPICAL (09:17)
--- NOTE | 2024-12-11 09:21 | W.PN.PUL.V3 ---
Today's Communication / Plan
-
Monitor chest tube output
CT chest reviewed-reposition or upsize chest tube-interventional radiology notified
Antibiotics
Assessment
-
Patient is an 84-year-old male with history of kidney cancer status post left nephrectomy, radiculopathy/chronic back pain, presenting to ER 11/23/24 with right upper flank pain, admitted for possible infection. Chest x-ray demonstrating right
sided infiltrate, suspicious for pneumonia. UA was negative on admission. On repeat chest x-rays, right sided pleural effusion had progressed into loculated appearance. Evaluated for thoracentesis on 11/27 but could not be amenable for sampling
due to a small fluid size. Underwent CT showing moderate size loculated pleural effusion, enlarging. He provides no additional History/ROS due to dementia. We are consulted for eval 11/30/24.
Pneumonia, right lower lobe suspect aspiration
Pleural effusion, likely empyema, cultures however staying negative so far
Right upper flank pain
Fever/leukocytosis
Acute kidney injury
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
Chronic back pain with radiculopathy
Dementia
Plan
Respiratory status slowly improving-still has diminished breath sounds at the right base
Supplemental oxygen if needed-was not on oxygen prior to admission-currently on room air-99% saturation
Incentive spirometry encouraged
Nebulizers if needed-currently not spastic
Aspiration precautions
Chest x-ray 12/09/2024-no pneumothorax on either side-abnormality on yesterday's chest x-ray may have been related to skinfold on the left side
CT chest 12/06/2024-right pleural effusion with associated pleural thickening decreased in size and improved from 12/04/2024, right chest tube pigtail located superior to the existing pleural fluid, airspace consolidation right lower lobe
Suspect current chest tube not communicating with fluid and recommend repositioning or upsizing chest tube-interventional radiology notified and consulted
Cultures reviewed
Pleural fluid culture 12/02/2024-no growth
Legionella and streptococcal antigens negative
Urine cultures negative
Blood cultures negative
Empiric antibiotics-ampicillin/sulbactam
Chest tube placed by interventional radiology 12/02/[id number] 6.84, WBC 4144, Glu <30, TP 4.2, LDH 1265--indicated exudate/empyema noted
Chest tube output--555 mL on 12/07/2024 and -235 mL 12/08/2024 and -140 mL on 12/10/2024 and -110 mL 12/11/2024
Continue to monitor chest tube drainage intrapleural tPA/DNase-has received twice
Follow radiographically in addition to monitoring chest tube output and might require another CT chest-if incomplete drainage then chest tube repositioning, upsizing chest tube, and hopefully not requiring thoracic surgical input/decortication
[facility] 11/27/24 noting mild pharyngeal dysphagia
He is placed on a modified diet
Speech following
RUE Cellulitis noted, on IV abx
DVT prophylaxis-on Lovenox
Diagnostic Data
CT Scan: CHEST 11/30/24- Moderate loculated slightly high attenuation right pleural effusion with extension of small to moderate volume fluid into the right minor fissure and accompanying right lower lobe consolidation extending to the right hilum,
overall markedly limited without intravenous contrast. Malignancy in the right lower lobe cannot be excluded. Tiny left pleural effusion with accompanying left lower lobe opacification most likely representing subsegmental atelectasis. Predominantly
fluid density in the subcarinal mediastinum, indeterminate. Coronary artery calcifications.
US 11/27/24- Trace right pleural effusion. Amount of fluid present not sufficient for safe thoracentesis.
Echo: Stress 2011- Echocardiographic images are good. Baseline EF is 55% without regional wall motion abnormalities. With exercise, there is augmentation of all regional wall motion the EF of 70%. This a normal echocardiographic response to
exercise.
Subjective Data
-
Date of Service:
Date of Service: December 11, 2024
Chief Complaint: Pulmonary Follow Up and Dyspnea Follow Up
Subjective:
Out of bed, no complaints of shortness of breath, chest pain or abdominal pain, chest tube with minimal drainage
Review of Systems
General: Other (Per HPI )
Objective Data
Data Reviewed
Vital Signs / I&O:
Vital Signs
Temp Pulse Resp BP Pulse Ox
98 F 95 17 116/85 97
12/11/24 07:12 12/11/24 07:12 12/11/24 07:12 12/11/24 07:12 12/11/24 07:12
Intake and Output
12/10/24 12/11/24 12/12/24
06:59 06:59 06:59
Intake Total 2230 / 2230 550 / 550 420 / 420
Output Total 3445 / 3445 860 / 860 200 / 200
Balance -1215 / -1215 -310 / -310 220 / 220
SaO2: 97
Physical Exam
General: Respiratory Distress (n), Comfortable and Other (NAD)
HEENT: Normocephalic, Anicteric and Moist Mucous Membranes
Cardiovascular: Regular Rhythm, Murmur (2/6 systolic murmur) and Peripheral Edema (n)
Respiratory: Clear, Wheeze (n), Crackles (n), Rhonchi (n), Non-Labored Respirations and Chest Tube (Right chest tube)
GI: Soft, Non Distended and Non Tender
Neurology: Awake, Alert and No Motor Deficits (Moves all extremities)
Skin: Warm, Good Color, Cyanosis (n), Jaundice (n) and Rash (n)
Labs/Micro/Reports
Lab Data
12/11/24 06:17
12/11/24 06:17
[2024-12-11] MEDS: 0.45%NACL 1000 IV (10:10)
--- NOTE | 2024-12-11 12:15 | CM ---
Patient seen at bedside
continues with a chest tube
PT rec SNF
[facility]
PLAN: SNF, pending bed availability when stable
[2024-12-11 12:25] VITALS: BP 132/71; BP_SYST 72
[2024-12-11 13:40] VITALS: BP 138/66
[2024-12-11 15:07] VITALS: BP 141/85
--- NOTE | 2024-12-11 15:12 | W.PN.HOSP.TC ---
Today's Communication/Plan
-
Chest tube replaced into the new loculation by interventional radiology.
Monitor output
Antibiotics
Lokelma, IV fluids, BMP in a.m.
Assessment / Plan
Assessment / Plan
Impression
HPI: 84-year-old male with a past medical history of left kidney cancer status post left nephrectomy and chronic back pain with radiculopathy presents with a 2-day history of right upper flank pain. Patient reports that there is dull pain
constantly, with sharpness that waxes and wanes. He denies nausea, vomiting. No constipation, no diarrhea. He has been taking Tylenol and Advil for his pain. His pain is unassociated with food. His reports that he has been working in his
yard quite often, using a weed My. He denies chest pain, denies shortness of breath. No fever, no dysuria, no black or bloody stools.
Right lower back/upper flank pain
Pneumonia, with empyema
Sepsis present on admission
Acute kidney injury
TME, hyperactive daily
Labile hypertension
Mild dysphagia
Conditions prior to admission
Solitary kidney, status post left nephrectomy.
Chronic back pain.
Dementia senile type
Plan
Pneumonia, right lower lobe infiltrate suspect community-acquired, although reasonable risk for aspiration given age and cognitive impairment
Noted febrile within 24 hours postadmission with now rising white count.
Urinalysis negative on admission.
Imaging with 3 mm nonobstructive right-sided kidney stone.
Imaging also suggestive of a right small pleural effusion with adjacent consolidation, reasonable concern for right basilar pneumonia.
Chest x-ray 2 views with right lower lobe consolidation and effusion
Blood cultures negative to date
Repeat urine cultures negative
Chest ultrasound with possibly small, although loculated pleural effusion
Loculated pleural effusion not amenable to thoracentesis on 11/26.
Follow-up CT scan on 11/30 with right lower lobe process and loculated pleural effusion.
Repeat ultrasound on 12/01 with worsening right pleural effusion possible loculation
Status post right chest tube placement by [facility] on 12/02. Noted for pH 6.84, WBC 4144, LDH 1265. Findings consistent with empyema by pH
12/03 chest tube output around 100 over 24 hours. tPA lysis
Significant output close to 1 L post tPA lysis
Follow-up CT scan on 12/04 with improved right pleural effusion and infiltrate
CT scan on 12/10 findings consistent with remains in loculated right pleural effusion
12/11 interventional radiology consultation with with right chest tube replacement including new loculation.
WBC trending down
Acute kidney injury
Hyperkalemia
Solitary kidney.
Avoid nephrotoxins.
IV fluids
Status post Kayexalate 12/06
Lokelma on 12/06
Follow BMP
Bladder scan
Chronic back pain.
Continue symptomatic control including Tylenol, Flexeril, oxycodone for severe pain. Avoid NSAIDs with SHALA
Hyperactive delirium
Underlying cognitive impairment
Suspect dementia senile type
TSH, B12 is in normal limits.
Status post Seroquel
Status post Risperdal changed to as needed
Mental status improved
Has been off restraints
Labile hypertension
Monitor blood pressure closely. If persistently elevated will need to be started on medication.
Blood pressure AM 129/80
Mild dysphagia
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
Status post video swallow evaluation
Per speech continue with IDDS6 with mildly thick liquids
DVT prophylaxis with Lovenox
Full code
PT/OT-SNF.
Anticipated Discharge: > 48 hours
Subjective/Interval History
-
Date of Service: December 11, 2024
Objective Data
-
Labs:
Laboratory Results
12/11/24
06:17
WBC 11.8 H
Hgb 10.7 L
Hct 33.9 L
Plt Count 458 H
Sodium 138
Potassium 5.2 H
Chloride 107
Carbon Dioxide 26
BUN 20
Creatinine 1.2
Glucose 94
Calcium 8.9
Vital Signs:
Vital Signs
Temp Pulse Resp BP Pulse Ox
98 F 62 26 138/66 97
12/11/24 12:25 12/11/24 13:40 12/11/24 13:40 12/11/24 13:40 12/11/24 12:25
I&O
12/10/24 12/11/24 12/12/24
06:59 06:59 06:59
Intake Total 2230 / 2230 550 / 550 495 / 495
Output Total 3445 / 3445 860 / 860 1100 / 1100
Balance -1215 / -1215 -310 / -310 -605 / -605
Physical Exam
-
General: Well Developed and No Apparent Distress
HEENT: Normocephalic, Atraumatic and Moist Mucous Membranes
Respiratory: Non Labored Respirations and Chest Tubes (Right chest tube in place with serosanguineous fluid); Negative Accessory Resp Muscle Use
Cardiac: Regular Rhythm and S1/S2; Negative Murmur, Rub or Gallop
GI: Soft, Nontender, Nondistended and Normal Bowel Sounds; Negative Organomegaly
Rectal: Deferred by Provider
Musculoskeletal: No Clubbing, No Cyanosis and No Edema
Skin: Negative Rash
Neuro: Awake
Psych: Calm
[2024-12-11] MEDS: LOKELMA 10 GRAM PO ×2 (15:17→17:52)
[2024-12-11 15:32] VITALS: BP 141/74; PULSE 67; O2SAT 97
[2024-12-11] MEDS: REMOVE LIDOCAINE PATCH 2 PATCH REMOVE (21:19)
[2024-12-11 23:00] VITALS: BP 149/78
[2024-12-12] MEDS: UNASYN IV ×4 (02:52→20:10)
[2024-12-12] MEDS: LOKELMA 10 GRAM PO ×3 (06:03→17:56)
[2024-12-12 07:03] LABS: Hematocrit 35.1 % (39.0-52.0); Hemoglobin 11.3 g/dL (13.0-18.0); Mean Corp Hgb Conc. 32.2 g/dL (33.0-37.0); Mean Corpuscular Volume 85.2 fL (80.0-94.0); Nucleated Red Blood Cells % 0 % (-); Platelet Count 454 10^3/uL (130-400); Red Cell Dist. Width 13.2 % (11.5-14.5)
[2024-12-12 07:16] LABS: Blood Urea Nitrogen 20 mg/dl (9-20); Calcium 8.7 mg/dl (8.4-10.2); Carbon Dioxide 27 mmol/L (22-30); Chloride 105 mmol/L (98-107); Estimated Creatinine Clearance 44 ml/min; Glucose 97 mg/dl (70-99); Potassium 4.9 mmol/L (3.5-5.1); Sodium 137 mmol/L (135-145); eGFR 59.26
[2024-12-12 07:50] VITALS: BP 145/75
--- NOTE | 2024-12-12 08:36 | W.PN.HOSP.TC ---
Today's Communication/Plan
-
see a/p
Assessment / Plan
Assessment / Plan
Physical Exam
General: Well Developed and No Apparent Distress
HEENT: Normocephalic, Atraumatic and Moist Mucous Membranes
Respiratory: Non Labored Respirations and Chest Tubes (Right chest tube in place with serosanguineous fluid); Negative Accessory Resp Muscle Use
Cardiac: Regular Rhythm and S1/S2; Negative Murmur, Rub or Gallop
GI: Soft, Nontender, Nondistended and Normal Bowel Sounds; Negative Organomegaly
Musculoskeletal: No Clubbing, No Cyanosis and No Edema
Skin: Negative Rash
Neuro: AOx1 oriented only to self
Psych: Calm cooperative
Impression
HPI: 84-year-old male with a past medical history of left kidney cancer status post left nephrectomy and chronic back pain with radiculopathy presents with a 2-day history of right upper flank pain. Patient reports that there is dull pain
constantly, with sharpness that waxes and wanes. He denies nausea, vomiting. No constipation, no diarrhea. He has been taking Tylenol and Advil for his pain. His pain is unassociated with food. His reports that he has been working in his
yard quite often, using a weed My. He denies chest pain, denies shortness of breath. No fever, no dysuria, no black or bloody stools.
Right lower back/upper flank pain
Pneumonia, with empyema
Sepsis present on admission
Acute kidney injury
TME, hyperactive daily
Labile hypertension
Mild dysphagia
Conditions prior to admission
Solitary kidney, status post left nephrectomy.
Chronic back pain.
Dementia senile type
Plan
Pneumonia, right lower lobe infiltrate suspect community-acquired, although reasonable risk for aspiration given age and cognitive impairment
Noted febrile within 24 hours postadmission with now rising white count.
Urinalysis negative on admission.
Imaging with 3 mm nonobstructive right-sided kidney stone.
Imaging also suggestive of a right small pleural effusion with adjacent consolidation, reasonable concern for right basilar pneumonia.
Chest x-ray 2 views with right lower lobe consolidation and effusion
Blood cultures negative to date
Repeat urine cultures negative
Chest ultrasound with possibly small, although loculated pleural effusion
Loculated pleural effusion not amenable to thoracentesis on 11/26.
Follow-up CT scan on 11/30 with right lower lobe process and loculated pleural effusion.
Repeat ultrasound on 12/01 with worsening right pleural effusion possible loculation
Status post right chest tube placement by [facility] on 12/02. Noted for pH 6.84, WBC 4144, LDH 1265. Findings consistent with empyema by pH
12/03 chest tube output around 100 over 24 hours. tPA lysis
Significant output close to 1 L post tPA lysis
Follow-up CT scan on 12/04 with improved right pleural effusion and infiltrate
CT scan on 12/10 findings consistent with remains in loculated right pleural effusion
12/11 interventional radiology consultation with with right chest tube replacement including new loculation.
Leukocytosis persists though mild
Acute kidney injury
Hyperkalemia
Solitary kidney.
Avoid nephrotoxins.
IV fluids
Status post Kayexalate 12/06
On scheduled Lokelma for persistent hyperkalemia 12/11-12/13
Follow BMP
Bladder scan
Chronic back pain.
Continue symptomatic control including Tylenol, Flexeril, oxycodone for severe pain. Avoid NSAIDs with SHALA
Hyperactive delirium
Underlying cognitive impairment
Suspect dementia senile type
TSH, B12 is in normal limits.
Status post Seroquel
Status post Risperdal changed to as needed
Mental status improved
Has been off restraints
Labile hypertension
Monitor blood pressure closely. If persistently elevated will need to be started on medication.
12/13 Blood pressure relatively consistently at goal at this time
Mild dysphagia
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
Status post video swallow evaluation
Per speech continue with IDDS6 with mildly thick liquids, diet since upgraded to Regular/thin liquids
DVT prophylaxis with Lovenox
Full code
PT/OT-SNF.
Discussed with patient and patient's Chapis
I spent a total of 45 minutes with the patient or on the floor. More than 50% of this time involved counseling and coordination of care.
Anticipated Discharge: > 48 hours
Subjective/Interval History
-
Date of Service: December 12, 2024
No acute distress, appears relatively comfortable at this time. AOx1 oriented to self only but conversant and largely coherent. Chapis present during evaluation.
Objective Data
-
Labs:
Laboratory Results
12/12/24
06:20
WBC 12.1 H
Hgb 11.3 L
Hct 35.1 L
Plt Count 454 H
Sodium 137
Potassium 4.9
Chloride 105
Carbon Dioxide 27
BUN 20
Creatinine 1.2
Glucose 97
Calcium 8.7
Vital Signs:
Vital Signs
Temp Pulse Resp BP Pulse Ox
97.8 F 82 18 145/75 98
12/12/24 07:50 12/12/24 07:50 12/12/24 07:50 12/12/24 07:50 12/12/24 07:50
I&O
12/11/24 12/12/24 12/13/24
06:59 06:59 06:59
Intake Total 550 / 550 2435 / 2435
Output Total 860 / 860 1832 / 1832 225 / 225
Balance -310 / -310 603 / 603 -225 / -225
[2024-12-12] MEDS: TYLENOL 1000 MG PO ×3 (08:57→21:45)
[2024-12-12] MEDS: LIDOCAINE 4% PATCH 2 PATCH TOPICAL (08:59)
[2024-12-12] MEDS: TESSALON PERLES 100 MG PO ×2 (09:01→20:09)
--- NOTE | 2024-12-12 13:36 | CM ---
Patient chart reviewed - at bedside
Chest tube replaced into the new loculation by interventional radiology
PT rec SNF - referral in [facility] for [facility]
PLAN: SNF, pending bed availability when stable
[2024-12-12 15:00] VITALS: BP 138/76
--- NOTE | 2024-12-12 16:30 | W.PN.PUL3 ---
Today's Communication / Plan
-
Monitor chest tube output
Chest tube was replaced on 12/11
Follow right lower lobe empyema radiographically
Check CXR tomorrow
Continue antibiotics
Would consider ID consult to help assist with antibiotic duration
He remains confused; continue 1:1
Pulmonary service will continue to follow along
Assessment
-
Patient is an 84-year-old male with history of kidney cancer status post left nephrectomy, radiculopathy/chronic back pain, presenting to ER 11/23/24 with right upper flank pain, admitted for possible infection. Chest x-ray demonstrating right
sided infiltrate, suspicious for pneumonia. UA was negative on admission. On repeat chest x-rays, right sided pleural effusion had progressed into loculated appearance. Evaluated for thoracentesis on 11/27 but could not be amenable for sampling
due to a small fluid size. Underwent CT showing moderate size loculated pleural effusion, enlarging. He provides no additional History/ROS due to dementia. We are consulted for eval 11/30/24.
Pneumonia, right lower lobe suspect aspiration
Pleural effusion, likely empyema, cultures however staying negative so far
Right upper flank pain
Fever/leukocytosis
Acute kidney injury
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
Chronic back pain with radiculopathy
Dementia
Plan
Respiratory status improving-still has diminished breath sounds at the right base
Supplemental oxygen if needed-was not on oxygen prior to admission-currently on room air-99% saturation
Incentive spirometry encouraged
Nebulizers if needed-currently not bronchospastic
Aspiration precautions
Chest x-ray 12/09/2024-no pneumothorax on either side-abnormality on day prior's chest x-ray may have been related to skinfold on the left side
CT chest 12/10/2024-right pleural effusion with associated pleural thickening decreased in size and improved from 12/04/2024, right chest tube pigtail located superior to the existing pleural fluid, airspace consolidation right lower lobe
Suspect current chest tube not communicating with fluid and recommend repositioning or upsizing chest tube-interventional radiology notified and consulted --> on 12/11, IR successfully placed a right-sided 14 Fr chest tube and the prior chest tube
was removed
Pain control
Cultures reviewed
Pleural fluid culture 12/02/2024-no growth
Legionella and streptococcal antigens negative
Urine cultures negative
Blood cultures negative
Empiric antibiotics - Unasyn
Chest tube placed by interventional radiology 12/02/[id number] 6.84, WBC 4144, Glu <30, TP 4.2, LDH 1265--indicated exudate/empyema noted
Continue to monitor chest tube drainage intrapleural tPA/DNase-has received twice on 12/03 + 12/05
Follow radiographically in addition to monitoring chest tube output and might require another CT chest-if incomplete drainage then chest tube repositioning, upsizing chest tube, and hopefully not requiring thoracic surgical input/decortication
VSE 11/27/24 noting mild pharyngeal dysphagia
He is on a modified diet
Speech following
RUE Cellulitis noted, on IV abx
DVT prophylaxis-on Lovenox
Pulmonary service will continue to follow along
Diagnostic Data
CT Scan: CHEST 11/30/24- Moderate loculated slightly high attenuation right pleural effusion with extension of small to moderate volume fluid into the right minor fissure and accompanying right lower lobe consolidation extending to the right hilum,
overall markedly limited without intravenous contrast. Malignancy in the right lower lobe cannot be excluded. Tiny left pleural effusion with accompanying left lower lobe opacification most likely representing subsegmental atelectasis. Predominantly
fluid density in the subcarinal mediastinum, indeterminate. Coronary artery calcifications.
US 11/27/24- Trace right pleural effusion. Amount of fluid present not sufficient for safe thoracentesis.
Echo: Stress 2011- Echocardiographic images are good. Baseline EF is 55% without regional wall motion abnormalities. With exercise, there is augmentation of all regional wall motion the EF of 70%. This a normal echocardiographic response to
exercise.
Total time spent today was 38 minutes for this encounter. Time includes reviewing laboratory test/imaging results, reviewing pertinent medical records, obtaining and reviewing medical history, performing an appropriate exam, ordering medications,
tests and procedures. Time also includes documentation of this encounter, coordinating patient care and communicating with other healthcare professionals. Total time does not include separately billed tests performed on this date of service.
Subjective Data
-
Date of Service:
Date of Service: December 12, 2024
Chief Complaint: Pulmonary Follow Up and Dyspnea Follow Up
Subjective:
Patient seen today at bedside (late note entry). Remains confused. Right-sided chest tube in place with 1300 cc in Pleur-evac of purulent fluid. There is no airleak when he coughs or when he is breathing normal tidal breaths. Currently on room
air, saturating 97%, breathing comfortably.
Review of Systems
General: Other (Unobtainable as patient is confused)
Objective Data
Data Reviewed
Vital Signs / I&O / Oxygen:
Vital Signs
Temp Pulse Resp BP Pulse Ox
98.1 F 69 16 149/78 92
12/11/24 23:00 12/11/24 23:00 12/11/24 23:00 12/11/24 23:00 12/11/24 23:00
Intake and Output
12/11/24 12/12/24 12/13/24
06:59 06:59 06:59
Intake Total 550 / 550 2435 / 2435
Output Total 860 / 860 1832 / 1832 225 / 225
Balance -310 / -310 603 / 603 -225 / -225
SaO2 92
Physical Exam
General: Respiratory Distress (n), Comfortable and Other (NAD)
HEENT: Normocephalic, Anicteric and Moist Mucous Membranes
Cardiovascular: Regular Rhythm, Murmur (2/6 systolic murmur) and Peripheral Edema (n)
Respiratory: Wheeze (n), Crackles (Right base), Rhonchi (n), Non-Labored Respirations, Chest Tube (Right chest tube) and Other (Diminished breath sounds at right base)
GI: Soft, Non Distended and Non Tender
Neurology: Awake, Alert, No Motor Deficits (Moves all extremities) and Tremors (n)
Skin: Warm, Dry, Cyanosis (n), Jaundice (n) and Rash (n)
Labs/Micro/Reports
Lab Data
12/12/24 06:20
12/12/24 06:20
[2024-12-12] MEDS: REMOVE LIDOCAINE PATCH 2 PATCH REMOVE (20:09)
[2024-12-12 22:40] VITALS: BP 125/54
[2024-12-13] MEDS: UNASYN IV ×4 (02:06→20:55)
[2024-12-13] MEDS: LOKELMA 10 GRAM PO (05:45)
[2024-12-13 06:56] VITALS: BP 125/69
[2024-12-13 06:58] LABS: Hematocrit 33.4 % (39.0-52.0); Hemoglobin 10.5 g/dL (13.0-18.0); Mean Corp Hgb Conc. 31.4 g/dL (33.0-37.0); Mean Corpuscular Volume 86.1 fL (80.0-94.0); Platelet Count 418 10^3/uL (130-400); Red Cell Dist. Width 13.2 % (11.5-14.5)
[2024-12-13 07:13] LABS: Blood Urea Nitrogen 26 mg/dl (9-20); Calcium 8.4 mg/dl (8.4-10.2); Carbon Dioxide 28 mmol/L (22-30); Chloride 106 mmol/L (98-107); Estimated Creatinine Clearance 40 ml/min; Glucose 106 mg/dl (70-99); Magnesium 2.1 mg/dl (1.6-2.3); Potassium 5.0 mmol/L (3.5-5.1); Sodium 138 mmol/L (135-145); eGFR 53.84
--- NOTE | 2024-12-13 07:49 | W.PN.HOSP.TC ---
Today's Communication/Plan
-
cont abx
pain control
chest tube mgmt as per Pulm
PT/OT
potassium restricted diet
Assessment / Plan
Assessment / Plan
Physical Exam
General: Well Developed and No Apparent Distress
HEENT: Normocephalic, Atraumatic and Moist Mucous Membranes
Respiratory: Non Labored Respirations and Chest Tubes (Right chest tube in place with serosanguineous fluid); Negative Accessory Resp Muscle Use
Cardiac: Regular Rhythm and S1/S2; Negative Murmur, Rub or Gallop
GI: Soft, Nontender, Nondistended and Normal Bowel Sounds; Negative Organomegaly
Musculoskeletal: No Clubbing, No Cyanosis and No Edema
Skin: Negative Rash
Neuro: AOx1 oriented only to self
Psych: Calm cooperative
Impression
HPI: 84-year-old male with a past medical history of left kidney cancer status post left nephrectomy and chronic back pain with radiculopathy presents with a 2-day history of right upper flank pain. Patient reports that there is dull pain
constantly, with sharpness that waxes and wanes. He denies nausea, vomiting. No constipation, no diarrhea. He has been taking Tylenol and Advil for his pain. His pain is unassociated with food. His reports that he has been working in his
yard quite often, using a weed My. He denies chest pain, denies shortness of breath. No fever, no dysuria, no black or bloody stools.
Right lower back/upper flank pain
Pneumonia, with empyema
Sepsis present on admission
Acute kidney injury
TME, hyperactive daily
Labile hypertension
Mild dysphagia
Conditions prior to admission
Solitary kidney, status post left nephrectomy.
Chronic back pain.
Dementia senile type
Plan
Pneumonia, right lower lobe infiltrate suspect community-acquired, although reasonable risk for aspiration given age and cognitive impairment
Noted febrile within 24 hours postadmission with now rising white count.
Urinalysis negative on admission.
Imaging with 3 mm nonobstructive right-sided kidney stone.
Imaging also suggestive of a right small pleural effusion with adjacent consolidation, reasonable concern for right basilar pneumonia.
Chest x-ray 2 views with right lower lobe consolidation and effusion
Blood cultures negative to date
Repeat urine cultures negative
Chest ultrasound with possibly small, although loculated pleural effusion
Loculated pleural effusion not amenable to thoracentesis on 11/26.
Follow-up CT scan on 11/30 with right lower lobe process and loculated pleural effusion.
Repeat ultrasound on 12/01 with worsening right pleural effusion possible loculation
Status post right chest tube placement by [facility] on 12/02. Noted for pH 6.84, WBC 4144, LDH 1265. Findings consistent with empyema by pH
12/03 chest tube output around 100 over 24 hours. tPA lysis
Significant output close to 1 L post tPA lysis
Follow-up CT scan on 12/04 with improved right pleural effusion and infiltrate
CT scan on 12/10 findings consistent with remains in loculated right pleural effusion
12/11 interventional radiology consultation with with right chest tube replacement including new loculation.
12/13 Leukocytosis resolved
12/13 CR chest appreciated significantly improved Rt pleural effusion, RLL PNA
Acute kidney injury
Hyperkalemia
Solitary kidney.
Avoid nephrotoxins.
IV fluids
Status post Kayexalate 12/06
On scheduled Lokelma for persistent hyperkalemia 12/11-12/13 completed
Potassium Restrict Diet
Follow BMP
Bladder scan
Chronic back pain.
Continue symptomatic control including Tylenol, Flexeril, oxycodone for severe pain. Avoid NSAIDs with SHALA
Hyperactive delirium
Underlying cognitive impairment
Suspect dementia senile type
TSH, B12 is in normal limits.
Status post Seroquel
Status post Risperdal changed to as needed
Mental status improved
Has been off restraints
on 1:1
Labile hypertension
Monitor blood pressure closely. If persistently elevated will need to be started on medication.
12/13 Blood pressure relatively consistently at goal at this time
Mild dysphagia
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
Status post video swallow evaluation
Per speech [id number] with mildly thick liquids since upgraded to Regular/thin liquids
DVT prophylaxis SCDs, Lovenox
Full code
PT/OT-SNF.
Discussed with patient and patient's Chapis
I spent a total of 45 minutes with the patient or on the floor. More than 50% of this time involved counseling and coordination of care.
Anticipated Discharge: 24 - 48 hours
Subjective/Interval History
-
Date of Service: December 13, 2024
No acute distress, sitting up comfortably in bed. Pain persists but manageable with current pain regimen.
Objective Data
-
Labs:
Laboratory Results
12/13/24
06:30
WBC 10.7
Hgb 10.5 L
Hct 33.4 L
Plt Count 418 H
Sodium 138
Potassium 5.0
Chloride 106
Carbon Dioxide 28
BUN 26 H
Creatinine 1.3
Glucose 106 H
Calcium 8.4
Vital Signs:
Vital Signs
Temp Pulse Resp BP Pulse Ox
97.8 F 71 21 125/69 97
12/13/24 06:56 12/13/24 06:56 12/13/24 06:56 12/13/24 06:56 12/13/24 06:56
I&O
12/12/24 12/13/24 12/14/24
06:59 06:59 06:59
Intake Total 2435 / 2435 840 / 840
Output Total 1832 / 1832 1100 / 1100
Balance 603 / 603 -260 / -260
[2024-12-13] MEDS: TESSALON PERLES 100 MG PO ×2 (09:07→20:55)
[2024-12-13] MEDS: TYLENOL 1000 MG PO ×3 (09:07→20:56)
[2024-12-13] MEDS: LIDOCAINE 4% PATCH 2 PATCH TOPICAL (09:08)
--- NOTE | 2024-12-13 11:23 | CM ---
Patient chart reviewed
Chest tube was replaced on 12/11
referral in [facility] for [facility]
1:1
no preauth
PLAN: SNF, pending bed availability, when stable
[2024-12-13] MEDS: ROXICODONE 5 MG PO (14:06)
[2024-12-13 15:55] VITALS: BP 130/76
--- NOTE | 2024-12-13 16:33 | W.PN.PUL3 ---
Today's Communication / Plan
-
Monitor chest tube output
Chest tube was replaced on 12/11
Follow right lower lobe empyema radiographically
Repeat CXR tomorrow
If significant evacuation has been seen on repeat CXR then would check CT chest to evaluate for complete evacuation of right-sided empyema
Continue antibiotics
Consider ID consult to help assist with antibiotic duration
He remains confused; continue 1:1
Pulmonary service will continue to follow along
Assessment
-
Patient is an 84-year-old male with history of kidney cancer status post left nephrectomy, radiculopathy/chronic back pain, presenting to ER 11/23/24 with right upper flank pain, admitted for possible infection. Chest x-ray demonstrating right
sided infiltrate, suspicious for pneumonia. UA was negative on admission. On repeat chest x-rays, right sided pleural effusion had progressed into loculated appearance. Evaluated for thoracentesis on 11/27 but could not be amenable for sampling
due to a small fluid size. Underwent CT showing moderate size loculated pleural effusion, enlarging. He provides no additional History/ROS due to dementia. We are consulted for eval 11/30/24.
Pneumonia, right lower lobe suspect aspiration
Pleural effusion, likely empyema, cultures however staying negative so far
Right upper flank pain
Fever/leukocytosis
Acute kidney injury
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
Chronic back pain with radiculopathy
Dementia
Plan
Respiratory status improving-still has diminished breath sounds at the right base
Supplemental oxygen if needed-was not on oxygen prior to admission-currently on room air-99% saturation
Incentive spirometry encouraged
Nebulizers if needed-currently not bronchospastic
Aspiration precautions
Chest x-ray 12/09/2024-no pneumothorax on either side-abnormality on day prior's chest x-ray may have been related to skinfold on the left side
CT chest 12/10/2024-right pleural effusion with associated pleural thickening decreased in size and improved from 12/04/2024, right chest tube pigtail located superior to the existing pleural fluid, airspace consolidation right lower lobe
Suspect current chest tube not communicating with fluid and recommend repositioning or upsizing chest tube-interventional radiology notified and consulted --> on 12/11, IR successfully placed a right-sided 14 Fr chest tube and the prior chest tube
was removed
Pain control
Cultures reviewed
Pleural fluid culture 12/02/2024-no growth
Legionella and streptococcal antigens negative
Urine cultures negative
Blood cultures negative
Empiric antibiotics - Unasyn
Chest tube placed by interventional radiology 12/02/[id number] 6.84, WBC 4144, Glu <30, TP 4.2, LDH 1265--indicated exudate/empyema noted
Continue to monitor chest tube drainage intrapleural tPA/DNase-has received twice on 12/03 + 12/05
Follow radiographically in addition to monitoring chest tube output
- CXR from today shows improved size of right-sided pleural effusion; repeat CXR tomorrow and if continued improvement in right effusion is seen then would obtain CT chest to evaluate for complete evacuation of right-sided empyema; once empyema has
been fully drained then chest tube should be removed
VSE 11/27/24 noting mild pharyngeal dysphagia
He is on a modified diet
Speech following
RUE Cellulitis noted, on IV abx
DVT prophylaxis- Lovenox resumed
Pulmonary service will continue to follow along
Diagnostic Data
CT Scan: CHEST 11/30/24- Moderate loculated slightly high attenuation right pleural effusion with extension of small to moderate volume fluid into the right minor fissure and accompanying right lower lobe consolidation extending to the right hilum,
overall markedly limited without intravenous contrast. Malignancy in the right lower lobe cannot be excluded. Tiny left pleural effusion with accompanying left lower lobe opacification most likely representing subsegmental atelectasis. Predominantly
fluid density in the subcarinal mediastinum, indeterminate. Coronary artery calcifications.
US 11/27/24- Trace right pleural effusion. Amount of fluid present not sufficient for safe thoracentesis.
Echo: Stress 2011- Echocardiographic images are good. Baseline EF is 55% without regional wall motion abnormalities. With exercise, there is augmentation of all regional wall motion the EF of 70%. This a normal echocardiographic response to
exercise.
Total time spent today was 41 minutes for this encounter. Time includes reviewing laboratory test/imaging results, reviewing pertinent medical records, obtaining and reviewing medical history, performing an appropriate exam, ordering medications,
tests and procedures. Time also includes documentation of this encounter, coordinating patient care and communicating with other healthcare professionals. Total time does not include separately billed tests performed on this date of service.
Subjective Data
-
Date of Service:
Date of Service: December 13, 2024
Chief Complaint: Pulmonary Follow Up and Dyspnea Follow Up
Subjective:
Patient was seen and evaluated earlier this afternoon (late note entry). CXR checked today showing improved size of right-sided pleural effusion. 183 cc present in Pleur-evac of purulent fluid, with no airleak. Patient is on -20 cm of suction.
He is repetitive and what he says, although he is calm and cooperative. He is currently in no acute distress.
Review of Systems
General: Other (Unobtainable due to dementia)
Objective Data
Data Reviewed
Vital Signs / I&O / Oxygen:
Vital Signs
Temp Pulse Resp BP Pulse Ox
97.8 F 71 21 125/69 97
12/13/24 06:56 12/13/24 06:56 12/13/24 06:56 12/13/24 06:56 12/13/24 06:56
Intake and Output
12/12/24 12/13/24 12/14/24
06:59 06:59 06:59
Intake Total 2435 / 2435 840 / 840
Output Total 1832 / 1832 1100 / 1100
Balance 603 / 603 -260 / -260
SaO2 97
Physical Exam
General: Respiratory Distress (n), Comfortable and Other (NAD)
HEENT: Normocephalic, Anicteric and Moist Mucous Membranes
Cardiovascular: Regular Rhythm, Murmur (2/6 systolic murmur) and Peripheral Edema (n)
Respiratory: Wheeze (n), Crackles (Right base), Rhonchi (n), Non-Labored Respirations, Chest Tube (Right chest tube) and Other (Diminished breath sounds at right base)
GI: Soft, Non Distended and Non Tender
Neurology: Awake, Alert, No Motor Deficits (Moves all extremities) and Tremors (n)
Skin: Warm, Dry, Cyanosis (n), Jaundice (n) and Rash (n)
Labs/Micro/Reports
Lab Data
12/13/24 06:30
12/13/24 06:30
[2024-12-13] MEDS: LOVENOX 40 MG SC (18:02)
--- NOTE | 2024-12-13 18:29 | PTCARENOTE ---
Pt continues on a 1:1. R chest tube dressing changed, PRN pain medication administered with + effects. Updated at bedside. Chest tube output 45ml. Call paris within reach
[2024-12-13] MEDS: REMOVE LIDOCAINE PATCH 2 PATCH REMOVE (20:54)
[2024-12-13 23:12] VITALS: BP 129/70
[2024-12-14] MEDS: ROXICODONE 5 MG PO (01:50)
[2024-12-14] MEDS: UNASYN IV ×2 (01:50→07:55)
[2024-12-14 06:19] LABS: Hematocrit 33.7 % (39.0-52.0); Hemoglobin 10.8 g/dL (13.0-18.0); Mean Corp Hgb Conc. 32.0 g/dL (33.0-37.0); Mean Corpuscular Volume 86.0 fL (80.0-94.0); Platelet Count 374 10^3/uL (130-400); Red Cell Dist. Width 13.2 % (11.5-14.5)
[2024-12-14 06:45] LABS: Blood Urea Nitrogen 27 mg/dl (9-20); Calcium 8.7 mg/dl (8.4-10.2); Carbon Dioxide 28 mmol/L (22-30); Chloride 106 mmol/L (98-107); Estimated Creatinine Clearance 40 ml/min; Glucose 91 mg/dl (70-99); Magnesium 2.1 mg/dl (1.6-2.3); Potassium 4.9 mmol/L (3.5-5.1); Sodium 138 mmol/L (135-145); eGFR 53.84
[2024-12-14 07:13] VITALS: BP 143/63
[2024-12-14] MEDS: TESSALON PERLES 100 MG PO ×2 (07:53→20:47)
[2024-12-14] MEDS: TYLENOL 1000 MG PO ×3 (07:53→21:04)
[2024-12-14] MEDS: LIDOCAINE 4% PATCH 2 PATCH TOPICAL (07:54)
--- NOTE | 2024-12-14 11:43 | W.PN.PUL3 ---
Today's Communication / Plan
-
Discontinue chest tube today
Transition to Augmentin to complete total of 6 weeks of antibiotic
Outpatient pulmonary follow-up
Hopefully discharge in the next 24 hours
Assessment
-
Patient is an 84-year-old male with history of kidney cancer status post left nephrectomy, radiculopathy/chronic back pain, presenting to ER 11/23/24 with right upper flank pain, admitted for possible infection. Chest x-ray demonstrating right
sided infiltrate, suspicious for pneumonia. UA was negative on admission. On repeat chest x-rays, right sided pleural effusion had progressed into loculated appearance. Evaluated for thoracentesis on 11/27 but could not be amenable for sampling
due to a small fluid size. Underwent CT showing moderate size loculated pleural effusion, enlarging. He provides no additional History/ROS due to dementia. We are consulted for eval 11/30/24.
Pneumonia, right lower lobe suspect aspiration
Pleural effusion, likely empyema, cultures however staying negative so far
Right upper flank pain
Fever/leukocytosis
Acute kidney injury
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
Chronic back pain with radiculopathy
Dementia
Plan
Clinically improved.
Not on supplemental oxygen.
Relatively clear lung exam.
Incentive spirometry encouraged
-
Chest x-ray 12/09/2024-no pneumothorax on either side-abnormality on day prior's chest x-ray may have been related to skinfold on the left side
CT chest 12/10/2024-right pleural effusion with associated pleural thickening decreased in size and improved from 12/04/2024, right chest tube pigtail located superior to the existing pleural fluid, airspace consolidation right lower lobe
Suspect current chest tube not communicating with fluid and recommend repositioning or upsizing chest tube-interventional radiology notified and consulted --> on 12/11, IR successfully placed a right-sided 14 Fr chest tube and the prior chest tube
was removed
-
Chest x-ray 12/14/2024: Reviewed, no evident pleural effusion or pneumothorax.
Chest tube in adequate position
Chest tube output 45 cc drainage in 24 hours
Will discontinue chest tube. 12/14/2024.
Interventional radiology was consulted by Dr. Topete.
-
Cultures reviewed
Pleural fluid culture 12/02/2024-no growth
Legionella and streptococcal antigens negative
Urine cultures negative
Blood cultures negative
Empiric antibiotics - Unasyn
Chest tube placed by interventional radiology 12/02/20248331-ptfuwbm-cO 6.84, WBC 4144, Glu <30, TP 4.2, LDH 1265--indicated exudate/empyema noted
Continue to monitor chest tube drainage intrapleural tPA/DNase-has received twice on 12/03 + 12/05
Chest x-ray as above
Discontinue chest tube 12/14/2024.
Has been on Unasyn-transition to Augmentin and complete total 6 weeks of antibiotics.
VSE 11/27/24 noting mild pharyngeal dysphagia
He is on a modified diet
Speech following
RUE Cellulitis noted, on IV abx
DVT prophylaxis- Lovenox resumed
Hopefully discharge soon.
Recommend outpatient pulmonary follow-up in the next 2 to 3 weeks
No additional recommendations.
Sign off
Diagnostic Data
CT Scan: CHEST 11/30/24- Moderate loculated slightly high attenuation right pleural effusion with extension of small to moderate volume fluid into the right minor fissure and accompanying right lower lobe consolidation extending to the right hilum,
overall markedly limited without intravenous contrast. Malignancy in the right lower lobe cannot be excluded. Tiny left pleural effusion with accompanying left lower lobe opacification most likely representing subsegmental atelectasis. Predominantly
fluid density in the subcarinal mediastinum, indeterminate. Coronary artery calcifications.
US 11/27/24- Trace right pleural effusion. Amount of fluid present not sufficient for safe thoracentesis.
Echo: Stress 2011- Echocardiographic images are good. Baseline EF is 55% without regional wall motion abnormalities. With exercise, there is augmentation of all regional wall motion the EF of 70%. This a normal echocardiographic response to
exercise.
Total time spent today was 42 minutes for this encounter. Time includes reviewing laboratory test/imaging results, reviewing pertinent medical records, obtaining and reviewing medical history, performing an appropriate exam, ordering medications,
tests and procedures. Time also includes documentation of this encounter, coordinating patient care and communicating with other healthcare professionals. Total time does not include separately billed tests performed on this date of service.
Subjective Data
-
Date of Service:
Date of Service: December 14, 2024
Chief Complaint: Pulmonary Follow Up and Dyspnea Follow Up
Subjective:
Patient feels better
Denies cough or phlegm production
Denies hemoptysis
Minimal chest discomfort and chest tube site entry
Denies nausea or vomiting-tolerating diet
Objective Data
Data Reviewed
Vital Signs / I&O / Oxygen:
Vital Signs
Temp Pulse Resp BP Pulse Ox
97.6 F 73 17 143/63 96
12/14/24 07:13 12/14/24 07:13 12/14/24 07:13 12/14/24 07:13 12/14/24 08:00
Intake and Output
12/13/24 12/14/24 12/15/24
06:59 06:59 06:59
Intake Total 840 / 840 1200 / 1200
Output Total 1100 / 1100 1225 / 1225
Balance -260 / -260 -25 / -25
SaO2 96
Physical Exam
General: Respiratory Distress (n), Comfortable and Other (NAD)
HEENT: Normocephalic, Anicteric and Moist Mucous Membranes
Cardiovascular: Regular Rhythm, Murmur (2/6 systolic murmur) and Peripheral Edema (n)
Respiratory: Wheeze (n), Crackles (Right base), Rhonchi (n), Non-Labored Respirations, Chest Tube (Right chest tube) and Other (Diminished breath sounds at right base)
GI: Soft, Non Distended and Non Tender
Neurology: Awake, Alert, No Motor Deficits (Moves all extremities) and Tremors (n)
Skin: Warm, Dry, Cyanosis (n), Jaundice (n) and Rash (n)
Labs/Micro/Reports
Lab Data
12/14/24 06:03
12/14/24 06:03
--- NOTE | 2024-12-14 12:15 | WOUNDNOTE ---
[facility] RN note: Patient seen for HAPI report for stage 1 sacral pressure injury. Patient has a R thoracic chest tube which may be removed today as per carissa Sutherland. Patient seen with RN Fabiana. Sacral shaped silicone border foam changed. Sacrum
slow to lynette red with .5cm sized fragile appearing dry skin area. Patient is on a Eutechnyx air bed and has an air chair cushion. Skin on heels intact. Patient reports a good appetite. Patient turns slowly in bed. He gets out of bed and ambulates
as per nursing. Suggested a turning schedule to RN since patient may not be turning self enough while in bed. Patient instructed pressure injury prevention measures. Patient turned to L semi side lying position. Heels off bed with pillow. Instructed
patient to take air chair cushion when discharged.
--- NOTE | 2024-12-14 13:53 | PN.IRAD.UPD ---
Update Note - IRAD
- -
Cleaned right sided chest tube with chloraprep and removed tube. Site dressed with vaseline gauze and an optifoam dressing.
Taz Marinelli RT(R)()
--- NOTE | 2024-12-14 14:42 | CM ---
Patient for chest tube removal today. Notified [facility] and requested bed availability. Possible discharge 12/15/24.
[2024-12-14 14:57] VITALS: BP 131/69
--- NOTE | 2024-12-14 16:01 | W.PN.HOSP.TC ---
Today's Communication/Plan
-
Transition to oral antibiotics.
Chest tube removed.
Discharge plan/SNF pending bed availability.
Assessment / Plan
Assessment / Plan
Impression
HPI: 84-year-old male with a past medical history of left kidney cancer status post left nephrectomy and chronic back pain with radiculopathy presents with a 2-day history of right upper flank pain. Patient reports that there is dull pain
constantly, with sharpness that waxes and wanes. He denies nausea, vomiting. No constipation, no diarrhea. He has been taking Tylenol and Advil for his pain. His pain is unassociated with food. His reports that he has been working in his
yard quite often, using a weed My. He denies chest pain, denies shortness of breath. No fever, no dysuria, no black or bloody stools.
Right lower back/upper flank pain
Pneumonia, with empyema
Sepsis present on admission
Acute kidney injury
TME, hyperactive daily
Labile hypertension
Mild dysphagia
Conditions prior to admission
Solitary kidney, status post left nephrectomy.
Chronic back pain.
Dementia senile type
Plan
Pneumonia, right lower lobe infiltrate suspect community-acquired, although reasonable risk for aspiration given age and cognitive impairment
Noted febrile within 24 hours postadmission with now rising white count.
Urinalysis negative on admission.
Imaging with 3 mm nonobstructive right-sided kidney stone.
Imaging also suggestive of a right small pleural effusion with adjacent consolidation, reasonable concern for right basilar pneumonia.
Chest x-ray 2 views with right lower lobe consolidation and effusion
Blood cultures negative to date
Repeat urine cultures negative
Chest ultrasound with possibly small, although loculated pleural effusion
Loculated pleural effusion not amenable to thoracentesis on 11/26.
Follow-up CT scan on 11/30 with right lower lobe process and loculated pleural effusion.
Repeat ultrasound on 12/01 with worsening right pleural effusion possible loculation
Status post right chest tube placement by [facility] on 12/02. Noted for pH 6.84, WBC 4144, LDH 1265. Findings consistent with empyema by pH
12/03 chest tube output around 100 over 24 hours. tPA lysis
Significant output close to 1 L post tPA lysis
Follow-up CT scan on 12/04 with improved right pleural effusion and infiltrate
CT scan on 12/10 findings consistent with remains in loculated right pleural effusion
12/11 interventional radiology consultation with with right chest tube replacement including new loculation.
12/13 Leukocytosis resolved
Follow-up chest x-ray on 12/14 with improved right lower lobe process and resolved pleural effusion.
Chest tube removed
Antibiotics transition to Augmentin to complete total of 6 weeks of therapy
Acute kidney injury
Hyperkalemia
Solitary kidney.
Avoid nephrotoxins.
IV fluids
Status post Kayexalate 12/06
On scheduled Lokelma for persistent hyperkalemia 12/11-12/13 completed
Potassium Restrict Diet
Follow BMP
Bladder scan
Chronic back pain.
Continue symptomatic control including Tylenol, Flexeril, oxycodone for severe pain. Avoid NSAIDs with SHALA
Hyperactive delirium
Underlying cognitive impairment
Suspect dementia senile type
TSH, B12 is in normal limits.
Status post Seroquel
Status post Risperdal changed to as needed
Mental status improved
Has been off restraints
on 1:1
Labile hypertension
Monitor blood pressure closely. If persistently elevated will need to be started on medication.
12/13 Blood pressure relatively consistently at goal at this time
Mild dysphagia
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
Status post video swallow evaluation
Per speech [id number] with mildly thick liquids since upgraded to Regular/thin liquids
DVT prophylaxis SCDs, Lovenox
Full code
PT/OT-SNF.
Discussed with patient and patient's Chapis
I
Anticipated Discharge: Within 24 hours
Subjective/Interval History
-
Date of Service: December 14, 2024
Objective Data
-
Labs:
Laboratory Results
12/14/24
06:03
WBC 10.4
Hgb 10.8 L
Hct 33.7 L
Plt Count 374
Sodium 138
Potassium 4.9
Chloride 106
Carbon Dioxide 28
BUN 27 H
Creatinine 1.3
Glucose 91
Calcium 8.7
Vital Signs:
Vital Signs
Temp Pulse Resp BP Pulse Ox
97.9 F 69 18 131/69 96
12/14/24 14:57 12/14/24 14:57 12/14/24 14:57 12/14/24 14:57 12/14/24 14:57
I&O
12/13/24 12/14/24 12/15/24
06:59 06:59 06:59
Intake Total 840 / 840 1200 / 1200
Output Total 1100 / 1100 1225 / 1225
Balance -260 / -260 -25 / -25
Physical Exam
-
General: Well Developed and No Apparent Distress
HEENT: Normocephalic, Atraumatic and Moist Mucous Membranes
Respiratory: Clear to Auscultation
Cardiac: Regular Rhythm and S1/S2; Negative Murmur, Rub or Gallop
GI: Soft, Nontender, Nondistended and Normal Bowel Sounds; Negative Organomegaly
Rectal: Deferred by Provider
Musculoskeletal: No Clubbing, No Cyanosis and No Edema
Skin: Negative Rash
Neuro: Nonfocal/Grossly Intact
[2024-12-14] MEDS: LOVENOX 40 MG SC (17:01)
[2024-12-14] MEDS: AUGMENTIN 875 MG/125 MG 1 TABLET PO (20:46)
[2024-12-14] MEDS: REMOVE LIDOCAINE PATCH 2 PATCH REMOVE (20:47)
[2024-12-14 23:18] VITALS: BP 140/70
[2024-12-15] MEDS: ROXICODONE 5 MG PO (01:24)
[2024-12-15 07:12] VITALS: BP 138/72
[2024-12-15 07:37] LABS: Hematocrit 34.8 % (39.0-52.0); Hemoglobin 11.1 g/dL (13.0-18.0); Mean Corp Hgb Conc. 31.9 g/dL (33.0-37.0); Mean Corpuscular Volume 85.1 fL (80.0-94.0); Platelet Count 356 10^3/uL (130-400); Red Cell Dist. Width 12.9 % (11.5-14.5)
[2024-12-15] MEDS: AUGMENTIN 875 MG/125 MG 1 TABLET PO (07:46)
[2024-12-15] MEDS: TESSALON PERLES 100 MG PO (07:46)
[2024-12-15] MEDS: TYLENOL 1000 MG PO (07:46)
[2024-12-15] MEDS: LIDOCAINE 4% PATCH 2 PATCH TOPICAL (07:47)
[2024-12-15 08:23] LABS: Blood Urea Nitrogen 26 mg/dl (9-20); Calcium 8.8 mg/dl (8.4-10.2); Carbon Dioxide 28 mmol/L (22-30); Chloride 104 mmol/L (98-107); Estimated Creatinine Clearance 40 ml/min; Glucose 93 mg/dl (70-99); Magnesium 2.2 mg/dl (1.6-2.3); Potassium 4.3 mmol/L (3.5-5.1); Sodium 137 mmol/L (135-145); eGFR 53.84
[2024-12-15 10:05] VITALS: BP 137/73; PULSE 80; O2SAT 97
--- NOTE | 2024-12-15 11:06 | CM ---
Addendum entered by Maranda Medrano 12/15/24 12:17:
Spoke with Lauren nuno can accept patient at [facility] today
tt hospitalist
agreeable with [facility]
PLAN: [facility]
Report #: [phone]
Fax #: [phone]
transportation forms on chart
Original Note:
Spoke with [facility] unable to accept
CM spoke with Sara in admissions who stated Medicare is primary
Discussed with additional referrals to be sent
requested [facility], [facility], [facility] & [facility]
PLAN; SNF, pending bed availability, when stable
--- NOTE | 2024-12-15 13:31 | W.DS.TRANS ---
DC Summary - [place]
-
Discharge Instructions:
Discharge Diagnosis/Procedures Pneumonia with empyema
Diet Regular
Instructions:
Stand-Alone Forms:
Changes to Home Medications: Yes
Discharge Medications:
DC Medications w/original date entered in [employer]
acetaminophen 325 mg tablet 650 mg (2 x 325 mg) PO Q6HPRN PRN mild pain/ fever>100.5F, WOOD #30 tabs 12/15/24
amoxicillin 875 mg-potassium clavulanate 125 mg tablet 1 tab PO Q12 #42 tabs 12/15/24
dextromethorphan-guaifenesin 10 mg-100 mg/5 mL oral syrup 10 ml PO Q4HPRN PRN cough #30 mL 12/15/24
Home Medication Changes
Antibiotics through 01/05/25
Pending Results: No
[2024-12-15 14:57] VITALS: BP 128/65
== END 2024-12-15 16:04 | DRG 871 ==
LOC: 3 WEST ACU 14:20
PROVIDERS: Hospitalist; Internal Medicine; Radiology Diagnostic Radiology; Radiology Vascular & Interventional Radiology; ADMITTING PHYSICIAN Family Medicine; ATTENDING PHYSICIAN Internal Medicine; CONSULT PHYSICIAN Internal Medicine; EMERGENCY PHYSICIAN Emergency Medicine; FAMILY PHYSICIAN Internal Medicine
PROC: 0W9930Z Drainage of Right Pleural Cavity with Drainage Device, Percutaneous Approach (ICD-10-PCS; 2024-12-02)
PROC: 3E0L317 Introduction of Other Thrombolytic into Pleural Cavity, Percutaneous Approach (ICD-10-PCS; 2024-12-03)
DX: A41.9 Sepsis, unspecified organism (principal); G92.8 Other toxic encephalopathy; J18.9 Pneumonia, unspecified organism; J86.9 Pyothorax without fistula; J69.0 Pneumonitis due to inhalation of food and vomit; N17.9 Acute kidney failure, unspecified; F05 Delirium due to known physiological condition; J90 Pleural effusion, not elsewhere classified; L03.113 Cellulitis of right upper limb; E87.5 Hyperkalemia; F03.90 Unspecified dementia, unspecified severity, without behavioral disturbance, psychotic disturbance, mood disturbance, and anxiety; R13.10 Dysphagia, unspecified; G89.29 Other chronic pain; M54.14 Radiculopathy, thoracic region; N20.0 Calculus of kidney; N43.3 Hydrocele, unspecified; Z90.5 Acquired absence of kidney; Z87.891 Personal history of nicotine dependence; Z85.528 Personal history of other malignant neoplasm of kidney
CPT/HCPCS: 32557; 32561; 70450; 71045; 71046; 71250; 72072; 73070; 74176; 74230; 76604; 80048; 80053; 81003; 81015; 82150; 82607; 82945; 83615; 83690; 83735; 83986; 84100; 84157; 84443; 84478; 84484; 85014; 85025; 85027; 85610; 87015; 87040; 87070; 87086; 87205; 87449; 87899; 88112; 88305; 89051; 92526; 92610; 92611; 93005; 96361; 96374; 96375; 96376; 97110; 97116; 97162; 97167; 97530; 97535; 99152; 99153; 99285; C1729; C1769; J2997

== ENCOUNTER → 2025-02-05 11:06 | Outpatient (REF) | payer MEDICARE, OTHER, SELFPAY ==
[2025-02-05 11:38] LABS: Hematocrit 41.1 % (39.0-52.0); Hemoglobin 13.0 g/dL (13.0-18.0); Mean Corp Hgb Conc. 31.6 g/dL (33.0-37.0); Mean Corpuscular Volume 83.9 fL (80.0-94.0); Nucleated Red Blood Cells % 0 % (-); Platelet Count 251 10^3/uL (130-400); Red Cell Dist. Width 14.1 % (11.5-14.5)
[2025-02-05 13:47] LABS: ALT (SGPT) 14 U/L (0-50); AST (SGOT) 16 U/L (17-59); Albumin 4.0 g/dl (3.5-5.0); Alkaline Phosphatase 63 U/L (38-126); Blood Urea Nitrogen 26 mg/dl (9-20); Calcium 9.6 mg/dl (8.4-10.2); Carbon Dioxide 24 mmol/L (22-30); Chloride 108 mmol/L (98-107); Glucose 99 mg/dl (70-99); Potassium 5.0 mmol/L (3.5-5.1); Sodium 140 mmol/L (135-145); Total Protein 6.8 g/dl (6.3-8.2); eGFR 49.25
== END ==
LOC: REG 11:06
PROVIDERS: ATTENDING PHYSICIAN Internal Medicine
DX: J86.9 Pyothorax without fistula (principal)
CPT/HCPCS: 36415; 80053; 85025

== ENCOUNTER → 2025-02-27 11:25 | Outpatient (REF) | payer MEDICARE, OTHER, SELFPAY | LOC: RAD 11:25 | PROVIDERS: ATTENDING PHYSICIAN Internal Medicine Critical Care Medicine; FAMILY PHYSICIAN Internal Medicine | DX: J90 Pleural effusion, not elsewhere classified (principal); J86.9 Pyothorax without fistula | CPT/HCPCS: 71250 ==